=== PATIENT | female | born 1990 | race Caucasian/White ===

== ENCOUNTER 2018-12-21 09:20 | Emergency (ER) | payer OTHER ==
[~2018-12-21] VITALS: Ht 165.1 cm; Wt 98.9 kg
--- OUTSIDE RECORDS SUMMARY | ~2018-12-21 | XMS | Clinical Summary ---
Demographics + + + | Address | [address] | | | [place] [address] | + + + | Home Phone | | + + + | Preferred Language | Unknown | + + + | Marital Status | | + + + | Pentecostalism Affiliation | Unknown | + + + | Race | White | + + + | Ethnic Group | Not or | + + + Author + + + | Author | NON REVENUE LOCATIONS | + + + | Organization | NON REVENUE LOCATIONS | + + + | Address | Unknown | + + + | Phone | Unavailable | + + + Support + + +---------+ + | Name | Relationship | Address | Phone | + + +---------+ + | Arnoldo Mata | ECON | Unknown | | + + +---------+ + Care Team Providers + +------+ + | Care Rotor Winder Name | Role | Phone | + +------+ + | Robert Velazquez DO | PCP | Unavailable | + +------+ + Source Comments MAYRA is fully live on both [facility] and [facility] InPatient.[facility] Allergies + + + + + + | Active Allergy | Reactions | Severity | Noted | Comments | | | | | Date | | + + + + + + | Oxycodone | Pruritus | | 12/10/19 | | | | | | 15 | | + + + + + + Medications + + + +---------+------+------+-------+ | Medication | Sig | Dispensed | Refills | Star | End | Statu | | | | | | t | Date | s | | | | | | Date | | | + + + +---------+------+------+-------+ | | Take by mouth. | | 0 | | | Activ | | Vit27&Enlhpfh-Mjtl-S | | | | | | e | | A 60 mg iron-1 mg | | | | | | | | oral tablet | | | | | | | + + + +---------+------+------+-------+ | lidocaine 5 % | apply to vulva as | 35 g | 2 | 10/2 | | Activ | | topical ointment | needed for pain | | | 8/20 | | e | | | | | | 15 | | | + + + +---------+------+------+-------+ | tacrolimus 0.1 % | EVERY OTHER DAY | 30 g | 2 | 10/1 | | Activ | | topical ointment | application to vulva | | | 2/20 | | e | | | | | | 16 | | | + + + +---------+------+------+-------+ | NUVARING | | | 3 | 10/0 | | Activ | | 0.12-0.015 mg/24 hr | | | | 4/20 | | e | | vaginal ring | | | | 17 | | | + + + +---------+------+------+-------+ | doxycycline | Take 1 capsule by | 60 | 1 | 10/2 | | Activ | | monohydrate 100 mg | mouth every twelve | capsule | | 3/20 | | e | | oral capsule | hours. (Pharmacist | | | 17 | | | | | to substitute salt | | | | | | | | form as needed) | | | | | | + + + +---------+------+------+-------+ | silver | Apply twice to three | 400 g | 0 | 05/0 | | Activ | | sulfaDIAZINE 1 % | times per day over | | | 3/20 | | e | | topical cream | affected areas | | | 18 | | | + + + +---------+------+------+-------+ | fluconazole 200 mg | Take one pill po | 6 | 0 | 05/0 | | Activ | | oral tablet | daily for 3 days, | tablet | | 3/20 | | e | | | then once weekly for | | | 18 | | | | | another three week. 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 | + + + | Acantholytic vesicular dermatitis of the genitals | 01/13/2015 | + + + Family History + + +------+ + | Medical History | Relation | Name | Comments | + + +------+ + | Arthritis | Father | | | + + +------+ + | Depression | Mother | | | + + +------+ + | Thyroid | Mother | | | + + +------+ + | Asthma | | | sibling | + + +------+ + | Thyroid | | | sibling | + + +------+ + + +------+--------+ + | Relation | Name | Status | Comments | + +------+--------+ + | Father | | | | + +------+--------+ + | Mother | | | | + +------+--------+ + Social History + +-------+ +--------+------+ | [...] recent travel history available. | + + Last Filed Vital Signs + + + + + | Vital Sign | Reading | Time Taken | Comments | + + + + + | Blood Pressure | 138/85 | 01/21/2018 10:35 AM | | | | | PST | | + + + + + | Pulse | 89 | 01/21/2018 10:35 AM | | | | | PST | | + + + + + | Temperature | - | - | | + + + + + | Respiratory Rate | - | - | | + + + + + | Oxygen Saturation | - | - | | + + + + + | Inhaled Oxygen | - | - | | | Concentration | | | | + + + + + | Weight | 96.6 kg (213 lb) | 12/29/2015 9:44 AM | | | | | PDT | | + + + + + | Height | 162.6 cm (5' 4") | 12/24/2014 8:27 AM | | | | | PDT | | + + + + + | Body Mass Index | 36.56 | 12/24/2014 8:27 AM | | | | | PDT | | + + + + + Plan of Treatment +--------+---------+ + + + | Date | Type | Specialty | Care Team | Description | +--------+---------+ + + + | 01/27/ | Office | Dermatology | Keara Kraus, | | | 2018 | Visit | | [address] | | | | | | [place], [place] | | | | | | [address] | | | | | | [phone] | | | | | | | | +--------+---------+ + + + + + + + + | Health Maintenance | Due Date | Last Done | Comments | + + + + + | Influenza (Flu) | | 01/17/2016, 02/18/2013 | | | vaccination (#1) | 9 | | | + + + + + | Pneumococcal | Aged Out | | No longer eligible | | vaccination | | | based on patient's | | | | | age to complete this | | | | | topic | + + + + + Results Not on filefrom Last 3 Months Insurance +-------+--------+ +--------+ + +------+ | Payer | Benefi | Subscriber | Effect | Phone | Address | Type | | | t Plan | ID | gaurang | | | | | | / | | Dates | | | | | | Group | | | | | | +-------+--------+ +--------+ + +------+ | MODA | MODA | [phone] | | [phone] | [address] | HMO | | | [place] | | [phone] | | | | [address] | | esent | | [place], | | | | | | | | [place] [address] | | +-------+--------+ +--------+ + +------+ + +--------+ +--------+ + + | Guarantor Name | Accoun | Relation to | Date | Phone | Billing Address | | | t Type | Patient | of | | | | | | | | | | + +--------+ +--------+ + + | Dorothy Mata | Person | Self | [birth year] | [address] | | | al/Geovany | | 1990 | [phone] | [place] [address] | | | veto | | | 4 (Home) | | + +--------+ +--------+ + +
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
--- OUTSIDE RECORDS SUMMARY | ~2018-12-21 | XMS | Encounter Summary ---
Demographics + + + | Address | [address] | | | [place] [address] | + + + | Home Phone | | + + + | Preferred Language | Unknown | + + + | Marital Status | | + + + | Mu-Ism Affiliation | Unknown | + + + | Race | White | + + + | Ethnic Group | Not or | + + + Author + + + | Author | [facility] | + + + | Organization | [facility] | + + + | Address | Unknown | + + + | Phone | Unavailable | + + + Support + + +---------+ + | Name | Relationship | Address | Phone | + + +---------+ + | Arnoldo Mata | ECON | Unknown | | + + +---------+ + Care Team Providers + +------+ + | Care House Builder Name | Role | Phone | + +------+ + | Robert Velazquez DO | PCP | Unavailable | + +------+ + Encounter Details +--------+ + + + + | Date | Type | Department | Care Team | Description | +--------+ + + + + | 01/08/ | MyChart | Dermatology | Keara Kraus, | RE: Condition in | | 2018 | Encounter | Medical at [facility] | MD [address] | Remission | | | | Floor [address] | [place], [place] | | | | | Ave Mailcode: [id number] | [address] | | | | | [facility] | [phone] | | | | | and Healing, | | | | | | | | | | | | Floor [place], [place] | | | | | | [address] | | | | | | [phone] | | | +--------+ + + + [...] [address] | | | | | | [place], [place] | | | | | | [address] | | | | | | [phone] | | | | | | | | +--------+---------+ + + + documented as of this encounter Visit Diagnoses Not on filedocumented in this encounter"
--- OUTSIDE RECORDS SUMMARY | ~2018-12-21 | XMS | Encounter Summary ---
Demographics + + + | Address | [address] | | | [place] [address] | + + + | Home Phone | | + + + | Preferred Language | Unknown | + + + | Marital Status | | + + + | Church Affiliation | Unknown | + + + | Race | White | + + + | Ethnic Group | Not or | + + + Author + + + | Author | [facility] | + + + | Organization | [facility] | + + + | Address | Unknown | + + + | Phone | Unavailable | + + + Support + + +---------+ + | Name | Relationship | Address | Phone | + + +---------+ + | Arnoldo Mata | ECON | Unknown | | + + +---------+ + Care Team Providers + +------+ + | Care Produce Assistant Name | Role | Phone | + +------+ + | Robert Velazquez DO | PCP | Unavailable | + +------+ + Reason for Visit + + + | Reason | Comments | + + + | Lab findings, | | | teaching, guidance, | | | and counseling | | + + + Encounter Details +--------+ + + + + | Date | Type | Department | Care Team | Description | +--------+ + + + + | 01/01/ | Telephone [facility] | [place], | Lab findings, | | 2014 | | [facility] | [address] | teaching, guidance, | | | | [address] | and counseling | | | | [address] | Rd [place], [place] | | | | | [facility] | [address] | | | | | [place], [place] | [phone] | | | | | [address] | | | | | | [phone] | | | +--------+ + + + [...] [address] | | | | | | [place], [place] | | | | | | [address] | | | | | | [phone] | | | | | | | | +--------+---------+ + + + documented as of this encounter Visit Diagnoses Not on filedocumented in this encounter"
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
--- OUTSIDE RECORDS SUMMARY | ~2018-12-21 | XMS | Encounter Summary ---
Demographics + + + | Address | [address] | | | [place] [address] | + + + | Home Phone | | + + + | Preferred Language | Unknown | + + + | Marital Status | | + + + | Mosque Affiliation | Unknown | + + + | Race | White | + + + | Ethnic Group | Not or | + + + Author + + + | Author | [facility] | + + + | Organization | [facility] | + + + | Address | Unknown | + + + | Phone | Unavailable | + + + Support + + +---------+ + | Name | Relationship | Address | Phone | + + +---------+ + | Arnoldo Mata | ECON | Unknown | | + + +---------+ + Care Team Providers + +------+ + | Care Environmental Control Administrator Name | Role | Phone | + +------+ + | Robert Velazquez DO | PCP | Unavailable | + +------+ + Reason for Visit + + + | Reason | Comments | + + + | Discussion | | + + + Encounter Details +--------+ + + + + | Date | Type | Department | Care Team | Description | +--------+ + + + + | 01/03/ | Telephone | Dermatology | Keara Kraus, | Discussion | | 2016 | | Medical at [facility] [address] | [address] | | | | | Floor [address] [place], [place] | | | | | [address] Mailcode: [address] | [id number] | | | | | [facility] | [phone] | | | | | and Healing, | | | | | | [facility] | | | | | | Floor [place], [place] | | | | | | [address] | | | | | | [phone] | | | +--------+ + + + [...] | | 2019 | Visit | | [address] | | | | | | [place], [place] | | | | | | [address] | | | | | | [phone] | | | | | | | | +--------+---------+ + + + documented as of this encounter Visit Diagnoses Not on filedocumented in this encounter"
--- OUTSIDE RECORDS SUMMARY | ~2018-12-21 | XMS | Encounter Summary ---
Demographics + + + | Address | [address] | | | [place] [address] | + + + | Home Phone | | + + + | Preferred Language | Unknown | + + + | Marital Status | | + + + | Protestant Affiliation | Unknown | + + + | Race | White | + + + | Ethnic Group | Not or | + + + Author + + + | Author | [facility] | + + + | Organization | [facility] | + + + | Address | Unknown | + + + | Phone | Unavailable | + + + Support + + +---------+ + | Name | Relationship | Address | Phone | + + +---------+ + | Arnoldo Mata | ECON | Unknown | | + + +---------+ + Care Team Providers + +------+ + | Care Bonsai Culturist Name | Role | Phone | + [...] | | 2016 | | Medical at [facility] [address] | [address] | | | | | Floor [address] | [place], [place] | | | | | [address] Mail[address]: [address] | [id number] | | | | | [facility] | [phone] | | | | | and Healing, | | | | | | [facility] | | | | | | Floor [place], [place] | | | | | | [address] | | | | | | [phone] | | | +--------+ + + + [...] [address] | | | | | | [place], [place] | | | | | | [address] | | | | | | [phone] | | | | | | | | +--------+---------+ + + + documented as of this encounter Visit Diagnoses Not on filedocumented in this encounter"
--- OUTSIDE RECORDS SUMMARY | ~2018-12-21 | XMS | Encounter Summary ---
Demographics + + + | Address | [address] | | | [place] [address] | + + + | Home Phone | | + + + | Preferred Language | Unknown | + + + | Marital Status | | + + + | Gnosticism Affiliation | Unknown | + + + | Race | White | + + + | Ethnic Group | Not or | + + + Author + + + | Author | [facility] | + + + | Organization | [facility] | + + + | Address | Unknown | + + + | Phone | Unavailable | + + + Support + + +---------+ + | Name | Relationship | Address | Phone | + + +---------+ + | Arnoldo Mata | ECON | Unknown | | + + +---------+ + Care Team Providers + +------+ + | Care Dentistry Teacher Name | Role | Phone | + +------+ + | Robert Velazquez DO | PCP | Unavailable | + +------+ + Reason for Visit + + + | Reason | Comments | + + + | Follow-up visit | | + + + Encounter Details +--------+---------+ + + + | Date | Type | Department | Care Team | Description | +--------+---------+ + + + | 01/21/ | Office | Dermatology | Keara Kraus, | Neoplasm of skin | | 2017 | Visit | Medical at [facility] [address] | [address] | (Primary Dx); | | | | Floor [address] | [place], [place] | Priyanka | | | | [place] Mail[address]: [address] | [id number] | disease | | | | [facility] | [phone] | | | | | and [place], | | | | | | [facility] | | | | | | [place], [place] | | | | | | [address] | | | | | | [phone] | | | +--------+---------+ + + + [...] +---------+ + + | Blood Pressure | 138/85 | 01/21/2018 10:35 AM | | | | | PST | | + +---------+ + + | Pulse | 89 | [...] +---------+ + + documented in this encounter Patient Instructions Patient Instructions Miya Riley MD - 01/21/2018 10:40 AM [facility] [employer] [facility] DEPARTMENT OF DERMATOLOGY [address] [place] [address], BIOPSY WOUND CARE INSTRUCTIONS General Care Wound healing is most rapid if the area is kept moist with ointment and covered so that a s cab is not allowed to form. To help this occur: Please remove the bandage on the day following your procedure. Wash gently with a mild soap and water (in the shower is fine). If you have any crusts or pus, you may gently remove with a Q-tip or gauze. Spread a thin layer of Vaseline ointment on the wound and then cover with a fresh bandag e. Continue this routine until the area heals. You will know the area is healed when it is no longer moist or makes a scab. It will still be pink. If you have stitches, they should be removed in 5 to 14 days. If you are uncertain of w hen to return for suture removal, please contact the clinic. Pain is rare, but if present, try an aanz-ams-ztvqlpl pain medication such as Tylenol ev amanda four hours (if you are able to take this medication). If you are having a great deal of pain, please contact the clinic. Complications If bleeding occurs, apply firm pressure directly over the wound for 15 minutes (no dylon zendejas). Time yourself with a clock as this can feel like a long time. If it is still bleeding , please contact the clinic. Expect the area to become more red and tender during the first two days after the proced ure. This will gradually improve and is part of the normal wound healing process. Infectio n is a rare complication. If it occurs, it begins several days after the procedure. The ar ea will become increasingly red, swollen and tender instead of slowly improving. Please con tact the clinic if you think you may have an infection. Biopsy results It usually takes one to two weeks to be notified of biopsy results. If you have not hea rd about your results within two weeks, please contact the clinic and we will assist you. IF YOU HAVE ANY QUESTIONS, PLEASE CONTACT THE CLINIC AT [phone] After hours, please call the hospital proofing machine operator and ask for the on-call cook chill technician at [phone]. Please note: In addition to your office visit charges, you or your insurance company may be billed: For any additional physician fees, such as the biopsy procedure. documented in this encounter Progress Notes Keara Kraus MD - 01/21/2018 10:40 AM PSTI personally interviewed and examined the jennifer ent and discussed the plan with the resident and patient. I have reviewed and edited the re sident note as appropriate to reflect my findings and assessment and agree with the document ation. I was present for the biopsy procedure as described in the note for this encounter. Keara Kraus M.D. [employer] Professor of Dermatology. Miya Mcadams MD - 1 03/23/2017 10:40 AM PSTPlease let patient know benign biopsy results; c/w congenital nevus.El ectronically signed by Miya Riley MD at 01/24/2018 2:12 PM Miya Mcadams MD - 2017 10:40 AM PSTDERMATOLOGY FOLLOW-UP VISIT Last Appointment in [facility] was on 01/29/17 at 3:42 pm with Keara Kraus MD. 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 She is off of all of the oral medications(doxycycline and naltrexo ne) and is only managing her disease with topical silvadene. Notes that she has greatly garcia ged her diet and is only eating nutratarian(no meat and no dairy). She notes that she became over the summer and so she went off of the oral medications. Is very pleased that she is doing so much better. Also notes that when she went off the nuvaring she started doin g much better to. Notes a tag that part of got partly ripped off when putting on her shirt a nd would like this removed if possible. Does not itch or bleed but is tender. Denies other c utaneous concerns. ROS: Other than those stated above, the patient denies any fevers, chills, night sweats, w eight loss, loss of appetite or other skin complaints. OBJECTIVE: BP 138/85 | Pulse 89 WDWN, NAD; awake, alert and oriented; pleasant with appropriate mood and affect A examination was performed of the face, eyelids, ears, lips, neck, arms, lower abdomen, le gs and external genitalia. Findings were within normal limits except for the following: -on the left zoroastrian is a brown pedunculated papule(photo and biopsy today) Scattered, amezquita slightly keratotic thin plaques, no superficial erosions, located on the in ner aspect of the labia majora(L>R) of the vulva extending posteriorly and involving the per ineal and perianal skin. ASSESSMENT/PLAN: Dorothy Mata is a 27 y.o. female who comes in today for follow up of papular acantholytic dyskeratosis of the vulva (Grace Edwards) accompanied by pruritus. -- continue Silver sulfadiazine cream BID-TID to the lesions --In future, if flaring , could consider resuming doxycycline and naltrexone. Other treatme nts could include acitretin (if she no longer desires children) and or MTX, topical retinoid s 2. 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 All equipment required was ready and available. The patient was positioned appropriately. After PARQ addressed and scar factors discussed, the area was prepped with an isopropyl alcohol pad. Anesthesia was obtained by harley bcutaneous infusion of buffered 1% lidocaine with 1:100,000 epinephrine. A shave biopsy was performed and hemostasis obtained with 25% aluminum chloride and pressure. Blood loss was minimal. The site was dressed with white petrolatum jelly and a bandage. Verbal and written wound care instructions were given to the patient. Patient reports no pain after the proce dure. RTC: annually for follow up on Grace Edwards Miya Riley MD MPH Dermatology Resident, PGY3 [facility] documented in this en counter Plan of Treatment +--------+---------+ + + + | Date | Type | Specialty | Care Team | Description | +--------+---------+ + + + | 01/27/ | Office | Dermatology | Keara Kraus, | | | 2019 | Visit | | [address] | | | | | | [place], [place] | | | | | | [address] | | | | | | [phone] | | | | | | | | +--------+---------+ + + + documented as of this encounter Procedures + +--------+ + + + | Procedure Name | Priori | Date/Time | Associated Diagnosis | Comments | | | ty | | | | + +--------+ + + + | [facility] BIOPSY OF SKIN | Routin | 01/31/2018 | Neoplasm of skin | | | LESION | e | 6:26 PM | | | | | | PST | | | + +--------+ + + + | DERM PATHOLOGY | Routin | 01/21/2018 | Neoplasm of skin | Results for this | | | e | 11:27 AM | | procedure are in the | | | | PST | | results section. | + +--------+ + + + documented in this encounter Results DERM PATHOLOGY (01/21/2018 11:27 AM PST) + + + + + + | Component | Value | Ref Range | Performed | Pathologist | | | | | At | Signature | + + + + + + | Clinical | Brown pedunculated | | [facility] | | | History | papule (nevus vs SK vs | | DERMATOPATH | | | | tag). | | OLOGY | | + + + + + + | Final | MELANOCYTIC NEVUS, | | [facility] | Electronically | | Pathologic | COMPOUND TYPE, | | DERMATOPATH | signed by | | Diagnosis | CONGENITAL PATTERN. | | OLOGY | Jennifer Cadena | | | (LEFT CONGREGATIONAL)NOTE: There | | | Judith Adams, | | | are features consistent | | | MD on 01/22/2018 | | | with prior trauma. The | | | at 5:19 PM | | | lesion is present at the | | | | | | peripheral and deep | | | | | | biopsy margins. | | | | + + + + + + | Gross | Received in formalin is | | [facility] | | | Description | a specimen labeled with | | DERMATOPATH | | | | the patient's name:A: | | OLOGY | | | | Specimen is labeled | | | | | | "Left zoroastrian" and | | | | | | consists of two | | | | | | irregular shaves of | | | | | | papular [id number] | | | | | | skin, 3 x 2 x 1 mm | | | | | | (inked blue), and 4 x 3 | | | | | | x 1 mm (inked blue, | | | | | | bisected). Both are | | | | | | entirely submitted in | | | | | | cassette A1. | | | | + + + + + + | Microscopic | There are nests and | | [facility] | | | | single melanocytes along | | DERMATOPATH | | | Description | the dermal epidermal | | OLOGY | | | | junction and nests, | | | | | | cords, and strands of | | | | | | melanocytes filling the | | | | | | papillary and extending | | | | | | into the reticular | | | | | | dermis, adjacent to | | | | | | adnexae and vessels. | | | | | | Most of the melanocytic | | | | | | nuclei are round to | | | | | | oval, and most of the | | | | | | cells contain | | | | | | amphophilic cytoplasm, | | | | | | some with melanin. 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
--- OUTSIDE RECORDS SUMMARY | ~2018-12-21 | XMS | Encounter Summary ---
Demographics + + + | Address | [address] | | | [place] [address] | + + + | Home Phone | | + + + | Preferred Language | Unknown | + + + | Marital Status | | + + + | Taoist Affiliation | Unknown | + + + | Race | White | + + + | Ethnic Group | Not or | + + + Author + + + | Author | [facility] | + + + | Organization | [facility] | + + + | Address | Unknown | + + + | Phone | Unavailable | + + + Support + + +---------+ + | Name | Relationship | Address | Phone | + + +---------+ + | Arnoldo Mata | ECON | Unknown | | + + +---------+ + Care Team Providers + +------+ + | Care Production Operations Inspector Name | Role | Phone | + +------+ + | Robert Velazquez DO | PCP | Unavailable | + +------+ + Encounter Details +--------+------+ + + + | Date | Type | Department | Care Team | Description | +--------+------+ + + + | 01/29/ | Lab | Laboratory at [facility] | | Acantholytic | | 2017 | | [address] | | vesicular dermatitis | | | | [place], [place] | | of the genitals | | | | [address] | | | | | | [phone] | | | +--------+------+ + + + Social History + +-------+ [...] + + documented as of this encounter Progress Notes Emily Gutiérrez MD - 01/29/2017 11:20 AM PSTLab results WNL, ok to start treatment with naltrexone. documented in this encounter Plan of Treatment +--------+---------+ + + + | Date | Type | Specialty | Care Team | Description | +--------+---------+ + + + | 01/27/ | Office | Dermatology | Keara Kraus, | | | 2019 | Visit | | [address] | | | | | | [place], [place] | | | | | | [address] | | | | | | [phone] | | | | | | | | +--------+---------+ + + + documented as of this encounter Procedures + +--------+ + + + | Procedure Name | Priori | Date/Time | Associated Diagnosis | Comments | | | ty | | | | + +--------+ + + + | COMPLETE METABOLIC | Routin | 01/29/2017 | Acantholytic | Results for this | | SET | e | 11:13 AM | vesicular dermatitis | procedure are in the | | (NA,K,CL,CO2,BUN,CRE | | PST | of the genitals | results section. | | AT,GLUC,CA,AST,ALT,B | | | | | | GINNY TOTAL,ALK | | | | | | PHOS,ALB,PROT TOTAL) | | | | | + +--------+ + + + documented in this encounter Results COMPLETE METABOLIC SET (NA,K,CL,CO2,BUN,CREAT,GLUC,CA,AST,ALT,BILI [...] | | | LABORATORY | | | [facility] | | | SERVICES, | | | [...] | Specimen | + + | Blood | + + + + + | Narrative | Performed At | + + + | Adult glucose reference range change effective 7-12-17. GFR is | [facility] | | estimated using the MDRD equation recommended by the National Kidney | LABORATORY | | Disease Education Program. Estimated GFR Interpretive Information: | SERVICES, CORE | | <60 mL/min/1.73 sq m Chronic Kidney | | | Disease <15 mL/min/1.73 sq m Kidney | | | Failure Estimated GFR greater that 60 mL/min/1.73 sq m is of limited | | | clinical value. The MDRD equation is not valid in the following | | | situations: - Patients under 18 years of age - Severe malnutrition | | | or obesity - Vegetarian diet - Rapidly changing kidney function | | + + + + + + + + | Performing | Address | City/State/Zipcode | Phone Number | | Organization | | | | + + + + + | [facility] | [address] | [place] [address] | | | SERVICES, CORE | [address] | | | + + + + + documented in this encounter Visit Diagnoses + + | Diagnosis | + + | Acantholytic vesicular dermatitis of the genitals Contact dermatitis and other | | eczema, due to unspecified cause | + + documented in this encounter"
--- OUTSIDE RECORDS SUMMARY | ~2018-12-21 | XMS | Encounter Summary ---
Demographics + + + | Address | [address] | | | [place] [address] | + + + | Home Phone | | + + + | Preferred Language | Unknown | + + + | Marital Status | | + + + | Pentecostalism Affiliation | Unknown | + + + | Race | White | + + + | Ethnic Group | Not or | + + + Author + + + | Author | [facility] | + + + | Organization | [facility] | + + + | Address | Unknown | + + + | Phone | Unavailable | + + + Support + + +---------+ + | Name | Relationship | Address | Phone | + + +---------+ + | Arnoldo Mata | ECON | Unknown | | + + +---------+ + Care Team Providers + +------+ + | Care Aerobics Teacher Name | Role | Phone | [...] Obstetrics & | Diagnoses | Raphael, | [facility] | | | | Gynecology | Vulvar | Romario Fulton MD | Generalists | | | | | itching | [place] | [address] | | | | | Lichen | Womens | [address] | | | | | sclerosus et | [facility] [place] | [address] | | | | | atrophicus | [address] | [address] | | | | | | [address] | Pavilion | | | | | | [address] | [place], [place] | | | | | | [place], [place] | [address] | | | | | | [address] | Phone: | | | | | | Phone: | [phone] | | | | | | [phone] | Fax: | | | | | | Fax: | [phone] | | | | | | [phone] | | +--------+--------+ + + + + Encounter Details +--------+---------+ + + + | Date | Type | Department | Care Team | Description | +--------+---------+ + + + | 12/09/ | Office | [facility] | Lichen sclerosus | | 2015 | Visit | [facility] | MD Emerald 1951 | (Primary Dx); | | | | Pav[address] | Hypopigmentation; | | | | [address] | Rd [place], [place] | Vulvar dystrophy | | | | [place] | [address] | | | | | [place], [place] | [phone] | | | | | [address] | | | | | | [phone] | | | +--------+---------+ + + + [...] This may be up to a w chicken ranch. If you are experiencing pain or irritation, [...] daughter named Keiry; Delivered last child in [place]. 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 Does VOICE GOAL: Sex less painful; sx control for the itch. Romario Lim MD [facility] [address] [place], [place] [address] Past Medical History Diagnosis Date Lichen sclerosus Fibromyalgia Psoriasis Past Surgical History Procedure Laterality Date section 01/10/13 Tonsillectomy 09/2010 Family History Problem Relation Thyroid Mother Depression Mother Arthritis Father Asthma sibling Thyroid sibling No LMP recorded. 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 Sexual Activity: Patient is sexually active with a male partner. Contraception: nothing. Sexually Transmitted Infections: No history. Obstetric History: deliveries: 1. Current Outpatient Prescriptions Medication Sig DESONIDE TOP Apply to affected area. Vit27&Tcqlwxh-Xuxa-AJ 60 mg iron-1 mg oral tablet Take [...] in [facility] documented in this encounter Plan of Treatment +--------+---------+ + + + | Date | Type | Specialty | Care Team | Description | +--------+---------+ + + + | 01/27/ | Office | Dermatology | Keara Kraus, | | | 2019 | Visit | | [address] | | | | | | [place], [place] | | | | | | [address] | | | | | | [phone] | | | | | | | [...] | + +--------+ + + + | DC BIOPSY | Routin | 12/09/2014 | Hypopigmentation [...] | + + + + + | [employer] [facility] - | [address] | [place] [address] | | | [place] | | | | + + + [...] | | | | | | WITH | | | | | | ACANTHOLYSIS. | | | | | | NOTE: Despite the | | | | | | clinical history, the | | | | | | presence of an | | | | | | intraepidermalvesicle | | | | | | and | | | | | | acantholysis througho | | | | | | ut much of the spinous | | | | | | layer issuggestive of | | | | | [...] | | | | sclerosus et | | | | | | atrophicus. | | | | | | KPW:mm12/10/14 My | | | | | | [...] | | | | | | Rendering | | | | | | Diagnostician: Jose A | | | | | | Paula | | | | | | Mahin.SuzannePathologistCynthiai | | | | | | cony [...] [facility] | Mailcode [address], [address] | [place] [address] | | | DERMATOPATHOLOGY | [address] [...]
--- OUTSIDE RECORDS SUMMARY | ~2018-12-21 | XMS | Clinical Summary ---
Demographics + + + | Address | [address] | | | [place] [address] | + + + | Home Phone | | + + + | Preferred Language | Unknown | + + + | Marital Status | | + + + | Shinto Affiliation | Unknown | + + + [...] Team Providers + +------+ + | Care Small Engine Trainer Name | Role | Phone | + +------+ + | Robert Velazquez DO | PCP | Unavailable | + +------+ + Source Comments MAYRA is fully live on both [facility] and [facility] InPatient.[facility] Allergies + + + + [...] 0 | | | Activ | | Vit27&Ngigvhl-Wudo-G | | | | | | e [...] | | 2018 | Visit | | [address] | | | | | | [place], [place] | | | | | | [address] | | | | | | [phone] | | | | | | | [...] MODA | MODA | [phone] | | [phone] | [address] | [address] | | | [address] | | [phone] | [phone] | | | | Y | | esent | | [place], | | | | | | | | [place] [address] | | +-------+--------+ +--------+ + +------+ + [...] | | al/Geovany | | 1990 | [phone] | [place] [address] | | | veto | | | 4 (Home) | | + +--------+ +--------+ + +
--- OUTSIDE RECORDS SUMMARY | ~2018-12-21 | XMS | Encounter Summary ---
Demographics + + + | Address | [address] | | | [place] [address] | + + + | Home Phone | | + + + | Preferred Language | Unknown | + + + | Marital Status | | + + + | Religion Affiliation | Unknown | + + + | Race | White | + + + | Ethnic Group | Not or | + + + Author + + + | Author | [facility] | + + + | Organization | [facility] | + + + | Address | Unknown | + + + | Phone | Unavailable | + + + Support + + +---------+ + | Name | Relationship | Address | Phone | + + +---------+ + | Arnoldo Mata | ECON | Unknown | | + + +---------+ + Care Team Providers + +------+ + | Care Crab Fisherman Name | Role | Phone | + [...] | | | | | itching | [place] | [address] | | | | | Lichen | Womens | [address] | | | | | sclerosus et | [facility] | [address] | | | | | atrophicus | [address] | [address] | | | | | | [address] | Pavilion | | | | | | [address] | [place], [place] | | | | | | [place], [place] | [address] | | | | | | [address] | Phone: | | | | | | Phone: | [phone] | | | | | | [phone] | Fax: | | | | | | Fax: | [phone] | | | | | | [phone] | | +--------+--------+ + + + + Encounter Details +--------+---------+ + + + | Date | Type | Department | Care Team | Description | +--------+---------+ + + + | 12/24/ | Office | [facility] | [place], | 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 If you are experiencing pain or irritation, [...] 8:25 AM PDT VULVAR INTERVAL EXAM Dorothy "Marcela Mata is a 24 y.o. female T1 [...] daughter named Keiry; Delivered last child in [place]. 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 Does VOICE GOAL: Sex less painful; sx control for the itch. Romario Lim MD [facility] [employer] [address] [place] [address] Past Medical History Diagnosis Date Lichen sclerosus Fibromyalgia Psoriasis Past Surgical History Procedure Laterality Date section 01/10/13 Tonsillectomy 09/2010 Family History Problem Relation Thyroid Mother Depression Mother Arthritis Father Asthma sibling Thyroid sibling No LMP recorded. 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 Sexual Activity: Patient is sexually active with a male partner. Contraception: nothing. Sexually Transmitted Infections: No history. Obstetric History: deliveries: 1. Current Outpatient Prescriptions Medication Sig DESONIDE TOP Apply to affected area. Vit27&Fcplgeh-Tuwg-LA 60 mg iron-1 mg oral tablet Take [...] in [facility] documented in this encounter Plan of Treatment +--------+---------+ + + + | Date | Type | Specialty | Care Team | Description | +--------+---------+ + + + | 01/27/ | Office | Dermatology | Keara Kraus, | | | 2019 | Visit | | [address] | | | | | | [place], [place] | | | | | | [address] | | | | | | [phone] | | | | | | | | +--------+---------+ + + + + +------+--------+ + + | Name | Type | Priori | Associated Diagnoses | Order Schedule | | | | ty | | | + +------+--------+ + + | IMMUNOFLUORESCENCE | Lab | Routin | Vulvar dystrophy | Ordered: 12/24/2014 | | STUDY | | royal Mathew | | | | | | disease [...] | + +--------+ + + + | [place] BIOPSY | Routin | 12/23/2014 | Vulvar [...] | | ESCENCE | labia, punch biopsy | | DERMATOPATH | | | STUDY | DIF CLINICAL | | OLOGY | | | [...] | | | | | | holding | | | | | | solution. After | | | | | | washing, the tissue was | | | | | | frozenin OCT, and | | | | | | cryosectioned onto five | | | | | | separate slides. The | | | | | | sections werethen | | | | | [...] | | | | | | thesesections. Partic | | | | | | ularly, there is no | | | | | | support for an | | | | | | immunologicallymediated | | | | | | form of pemphigus such | | | | | | as pemphigus vulgaris or | | | | | | | | | | | | pemphigusfoliaceus. P | | | | | | atient's with | | | | | | Grace-Grace disease | | | | | | typically have a | | | | | | negativedirect | | | | | | immunofluorescent | | | | | | test. Correlation | | | | | | with routine histology | | | | | | would beof value in | | | | | | arriving at a final | | | | | | diagnosis. 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
--- OUTSIDE RECORDS SUMMARY | ~2018-12-21 | XMS | Encounter Summary ---
Demographics + + + | Address | [address] | | | [place] [address] | + + + | Home Phone | | + + + | Preferred Language | Unknown | + + + | Marital Status | | + + + | Worship Affiliation | Unknown | + + + | Race | White | + + + | Ethnic Group | Not or | + + + Author + + + | Author | [facility] | + + + | Organization | [facility] | + + + | Address | Unknown | + + + | Phone | Unavailable | + + + Support + + +---------+ + | Name | Relationship | Address | Phone | + + +---------+ + | Arnoldo Mata | ECON | Unknown | | + + +---------+ + Care Team Providers + +------+ + | Care Freight Engineer Name | Role | Phone | + +------+ + | Robert Velazquez DO | PCP | Unavailable | + +------+ + Reason for Visit + + + | Reason | Comments | + + + | New Patient Visit | | + + + | Examination Of Skin | | + + + Consultation (Routine) +--------+ + + + + + | Status | Reason | Specialty | Diagnoses / | Referred By | Referred To | | | | | Procedures | Contact | Contact | +--------+ + + + + + | Closed | Specialty | Dermatology | Diagnoses | Aleksander, | D[facility] Med | | | Services | | | [place], | [address] | | | Required | | Acantholytic | [address] | [address] | | | | | vesicular | [address] | Mailcode: | | | | | dermatitis | [address] | [facility] | | | | | [facility] | [place], [place] | for Health | | | | | y disease | [address] | and Healing, | | | | | Procedures | Phone: | Building [address], | | | | | CONSULT TO | [phone] | 16th Floor | | | | | DERM & DERM | Fax: | [place], [place] | | | | | SURGERY | [phone] | [address] | | | | | | | Phone: | | | | | | | [phone] | | | | | | | Fax: | | | | | | | [phone] | +--------+ + + + + + Encounter Details +--------+---------+ + + + | Date | Type | Department | Care Team | Description | +--------+---------+ + + + | 01/08/ | Office | Dermatology | Keara Kraus, | Acantholytic | | 2017 | Visit | [facility] at [facility] [address] | MD [address] | vesicular dermatitis | | | | Floor [address] | [place], [place] | of the genitals | | | | Ave Mailcode: [facility] | [address] | (Primary Dx) | | | | [facility] | [phone] | | | | | and Healing, | | | | | | Building | | | | | | Floor [place], [place] | | | | | | [address] | | | | | | [phone] | | | +--------+---------+ + + + [...] +---------+ + + | Blood Pressure | 126/80 | 01/08/2017 3:52 PM | | | | | PDT | | + +---------+ + + | Pulse | 88 | 01/08/2017 3:52 PM | | | | | PDT | | + +---------+ + + | [...] encounter Progress Notes Keara Kraus MD - 01/08/2017 3:40 PM PDTI personally interviewed and examined the jennifer ent and discussed the plan with the resident and patient. I have reviewed and edited the re sident note as appropriate to reflect my findings and assessment and agree with the document ation. Keara Kraus M.D. Insurance Law Specialist of Dermatology. Blaine Watson MD - 01/08/2017 3:40 PM PDT . DERMATOLOGY NEW PATIENT CONSULTATION Consulting physician: Emerald Armijo CHIEF COMPLAINT: Sujit-sujit disease HISTORY OF PRESENT ILLNESS: Dorothy Mata is a 26 y.o. female sent by Dr. 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 The patient describes that she has had th is condition for about 2 years. The condition is very itchy and painful (she describes a bur nneka sensation). She states that it slightly improved during but flared when she s topped . She has not identified specific triggers such as heat, increased moist , friction or sexual activity. She does state that sexual intercourse can be painful and unc omfortable for her. Has treated with topical steroids (mild, moderate and strong) that will partially help. She has recently also tried to treat with a home made formulation that inclu ded coconut oil, almond oil and bees wax that she thinks has been the most helpful but despi te this continues to flare. The patient's dermatology intake form was reviewed, signed, and dated. 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 Social History Main Topics Smoking status: Never Smoker Smokeless tobacco: Never Used Alcohol use No Drug use: No Sexual activity: Yes Partners: Male Other Topics Concern Not on file Social History Narrative MEDICATIONS: Current Outpatient Prescriptions: lidocaine 5 % topical ointment, apply to vulva as needed for pain, Disp: 35 g, Rfl: 2 NUVARING 0.12-0.015 mg/24 hr vaginal ring, , Disp: , Rfl: 3 Vit27&Uhiktno-Dnij-NQ 60 mg iron-1 mg oral tablet, Take by mouth., Disp: , Rfl: tacrolimus 0.1 % topical ointment, EVERY OTHER DAY application to vulva, Disp: 30 g, Rfl: 2 ALLERGIES: Allergies Allergen Reactions Oxycodone Pruritus REVIEW OF SYSTEMS: Please see HPI and PMH. In addition, she denies fever, chills, sweats, weight loss or loss of appetite, and has no further skin complaints. PHYSICAL EXAMINATION: BP 126/80 | Pulse 88 | ? No Well-developed, well-nourished female in no acute distress. Awake, alert and oriented. Pl easant and cooperative mood. A skin examination was performed including the face, eyelids, ears, lips, neck, arms, lowe r abdomen, legs and external genitalia. Findings were within normal limits except for the following: - Scattered, skin-colored, and whitish, slightly keratotic papules, and some superficial er osions located on the inner aspect of the labia majora of the vulva extending posteriorly an d involving the perineal and perianal skin. -thighs and inguinal creases clear PATHOLOGY: DIAGNOSIS: INTRAEPIDERMAL VESICULAR DERMATITIS WITH ACANTHOLYSIS AND [...] correlation with immunofluorescence studies is recommended. Materials Returned:[id number] x 5 slides My electronic signature indicates [...] positive and negative control for each immunoreactant. LHM:jyi 12/29/14 VULVAR BIOPSY November 2014 DIAGNOSIS: INTRAEPIDERMAL [...] diagnosis. Rendering Diagnostician: Jose A Lim MD [facility] [address] [address] ASSESSMENT AND PLAN: Dorothy Mata is a 26 y.o. female who comes in today for evaluation of papular acantho lytic dyskeratosis of the Vulva which usually asymptomatic but sometimes accompanied by pru ritus. Most of the reported cases were women and occurred on the vulva and in the perianal a alejandra, but there was a report of male patient with the lesion on his penis. Treatment of PAD i s yet to be discovered. Successful treatments with topical and systemic steroids have been r eported. Topical and oral retinoids also have been used with variable response. The most eff ective treatment appears to be local ablation of the lesion by cryotherapy, electrocautery o r excision. Will approach as treatment for Sujit Edwards -- Silver sulfadiazine cream BID-TID to the lesions -- Doxy 100mg BID -- Would consider adding low dose naltrexone (4.5mg daily) if she partially responds to dox y -- Other treatments could include acitretin (if she no longer desires children) and or MTX, topical retinoids RTC: 1 month or sooner NATANAEL Lo MD Resident, Department of Dermatology [facility] Pager [phone] documented in this en counter Plan of Treatment +--------+---------+ + + + | Date | Type | Specialty | Care Team | Description | +--------+---------+ + + + | 01/27/ | Office | Dermatology | Keara Kraus, | | | 2018 | Visit | | [address] | | | | | | [place], [place] | | | | | | [address] | | | | | | [phone] | | | | | | | | +--------+---------+ + + + documented as of this encounter Visit Diagnoses + + | Diagnosis | + + | 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
--- OUTSIDE RECORDS SUMMARY | ~2018-12-21 | XMS | Encounter Summary ---
Demographics + + + | Address | [address] | | | [place] [address] | + + + | Home Phone | | + + + | Preferred Language | Unknown | + + + | Marital Status | | + + + | Rastafarian Affiliation | Unknown | + + + | Race | White | + + + | Ethnic Group | Not or | + + + Author + + + | Author | [facility] | + + + | Organization | [facility] | + + + | Address | Unknown | + + + | Phone | Unavailable | + + + Support + + +---------+ + | Name | Relationship | Address | Phone | + + +---------+ + | Arnoldo Mata | ECON | Unknown | | + + +---------+ + Care Team Providers + +------+ + | Care Principal Planner Name | Role | Phone | + +------+ + | Robert Velazquez DO | PCP | Unavailable | + +------+ + Reason for Referral Consultation (Routine) +--------+ + + + + [...] | | | | | dermatitis | Ariana Ann | [address] [place] | | | | | Monika | [facility] [place] | for Health | | | | | y disease | [address] | and Healing, | | | | | Procedures | Phone: | [facility] 1, | | | | | CONSULT TO | [phone] | 16th Floor | | | | | DERM & DERM | Fax: | [place], [place] | | | | | SURGERY | [phone] | [address] | | | | | | | Phone: | | | | | | | [phone] | | | | | | | Fax: | | | | | | | [phone] | +--------+ + + + + + Encounter Details +--------+ + + + + | Date | Type | Department | Care Team | Description | +--------+ + + + + | 12/28/ | Mark [facility] | Aleksander, | RE:skin disease | | 2017 | Encounter | [facility] [place] [facility] | MD [address] | | | | | [address] | | | | | [address] | [place], [place] | | | | | [address] | [address] | | | | | [place], [place] | [phone] | | | | | [address] | | | | | | [phone] | | | +--------+ + + + [...] [address] | | | | | | [place], [place] | | | | | | [address] | | | | | | [phone] | | | | | | | | +--------+---------+ + + + documented as of this encounter Visit Diagnoses + + | Diagnosis | + + | Acantholytic vesicular dermatitis of the genitals - Primary Contact dermatitis and | | other eczema, due to unspecified cause | + + | 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
--- OUTSIDE RECORDS SUMMARY | ~2018-12-21 | XMS | Encounter Summary ---
Demographics + + + | Address | [address] | | | [place] [address] | + + + | Home Phone | | + + + | Preferred Language | Unknown | + + + | Marital Status | | + + + | Adventism Affiliation | Unknown | + + + | Race | White | + + + | Ethnic Group | Not or | + + + Author + + + | Author | [facility] | + + + | Organization | [facility] | + + + | Address | Unknown | + + + | Phone | Unavailable | + + + Support + + +---------+ + | Name | Relationship | Address | Phone | + + +---------+ + | Arnoldo Mata | ECON | Unknown | | + + +---------+ + Care Team Providers + +------+ + | Care Motor Scooter Mechanic Name | Role | Phone | + +------+ + | Robert Velazquez DO | PCP | Unavailable | + +------+ + Reason for Visit + + + | Reason | Comments | + + + | Refill Request | | + + + Encounter Details +--------+--------+ + + + | Date | Type | Department | Care Team | Description | +--------+--------+ + + + | 07/18/ | Refill | Dermatology | Keara Kraus, | Refill Request | | 2017 | | Medical at [facility] | [address] | | | | | Floor [address] | [place], [place] | | | | | [place] Mailcode: CH16D | [address] | | | | | [facility] | [phone] | | | | | and Healing, | | | | | | [facility] | | | | | | [place], [place] | | | | | | [address] | | | | | | [phone] | | | +--------+--------+ + + + Social History + +-------+ [...] [address] | | | | | | [place], [place] | | | | | | [address] | | | | | | [phone] | | | | | | | | +--------+---------+ + + + documented as of this encounter Visit Diagnoses Not on filedocumented in this encounter"
--- OUTSIDE RECORDS SUMMARY | ~2018-12-21 | XMS | Encounter Summary ---
Demographics + + + | Address | [address] | | | [place] [address] | + + + | Home Phone | | + + + | Preferred Language | Unknown | + + + | Marital Status | | + + + | Mandaeism Affiliation | Unknown | + + + | Race | White | + + + | Ethnic Group | Not or | + + + Author + + + | Author | [facility] | + + + | Organization | [facility] | + + + | Address | Unknown | + + + | Phone | Unavailable | + + + Support + + +---------+ + | Name | Relationship | Address | Phone | + + +---------+ + | Arnoldo Mata | ECON | Unknown | | + + +---------+ + Care Team Providers + +------+ + | Care Display Carver Name | Role | Phone | + [...] Services | | | [address], | [address] | | | Required | | Acantholytic | MD [address] | | | | | vesicular | Blanca Marie | Mailcode: | | | | | dermatitis | Gregory Ann | [facility] | | | | | Monika | [place], [place] | for Health | | | | | y disease | [address] | and Healing, | | | | | Procedures | Phone: | Building 1, | | | | | CONSULT TO | [phone] | 16th Floor | | | | | DERM & DERM | Fax: | [place], [place] | | | | | SURGERY | [phone] | [address] | | | | | | | Phone: | | | | | | | [phone] | | | | | | | Fax: | | | | | | | [phone] | +--------+ + + + + + Encounter Details +--------+---------+ + + + | Date | Type | Department | Care Team | Description | +--------+---------+ + + + | 01/29/ | Office | Dermatology | Keara Kraus, | Acantholytic | | 2017 | Visit | Medical at [facility] 16 | [address] | vesicular dermatitis | | | | Floor [address] | [place], [place] | of the genitals | | | | Ave Mailcode: CH16D | [address] | (Primary Dx) | | | | [facility] | [phone] | | | | | and Healing, | | | | | | Building | | | | | | Floor [place], [place] | | | | | | [address] | | | | | | [phone] | | | +--------+---------+ + + + [...] with the document ation. Keara Kraus M.D. Linen Controller of Dermatology. Blaine Block MD - 01/29/2017 10:00 AM PSTDERMATOLOGY FOLLOW-UP VISIT Last Appointment in [facility] was on 01/08/17 at 3:40 pm with [...] Lo MD Resident, Department of Dermatology [facility] Pager [phone] documented in this en counter Plan of Treatment +--------+---------+ + + + | Date | Type | Specialty | Care Team | Description | +--------+---------+ + + + | 01/27/ | Office | Dermatology | Keara Kraus, | | | 2019 | Visit | | [address] | | | | | | [place], [place] | | | | | | [address] | | | | | | [phone] | | | | | | | [...] | | | LABORATORY | | | NEPALESE | | | SERVICES, | | | [...] | Adult glucose reference range change effective 712-17. 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
--- OUTSIDE RECORDS SUMMARY | ~2018-12-21 | XMS | Encounter Summary ---
Demographics + + + | Address | [address] | | | [place] [address] | + + + | Home Phone | | + + + | Preferred Language | Unknown | + + + | Marital Status | | + + + | Judaism Affiliation | Unknown | + + + | Race | White | + + + | Ethnic Group | Not or | + + + Author + + + | Author | [facility] | + + + | Organization | [facility] | + + + | Address | Unknown | + + + | Phone | Unavailable | + + + Support + + +---------+ + | Name | Relationship | Address | Phone | + + +---------+ + | Arnoldo Mata | ECON | Unknown | | + + +---------+ + Care Team Providers + +------+ + | Care Curtain Hemmer Automatic Name | Role | Phone | + +------+ + | Robert Velazquez DO | PCP | Unavailable | + +------+ + Reason for Visit + + + | Reason | Comments | + + + | Appointment | | + + + | Other | | + + + Encounter Details +--------+ + + + + | Date | Type | Department | Care Team | Description | +--------+ + + + + | 12/21/ | Telephone | [facility] | Ale[place]ander, | Appointment; | | 2014 | | [facility] at [place] | [address] | | | | | [address] | | | | | [address] | [place], [place] | | | | | [address] | [address] | | | | | [place], [place] | [phone] | | | | | [address] | | | | | | [phone] | | | +--------+ + + + [...] [address] | | | | | | [place], [place] | | | | | | [address] | | | | | | [phone] | | | | | | | | +--------+---------+ + + + documented as of this encounter Visit Diagnoses Not on filedocumented in this encounter"
--- OUTSIDE RECORDS SUMMARY | ~2018-12-21 | XMS | Encounter Summary ---
Demographics + + + | Address | [address] | | | [place] [address] | + + + | Home Phone [...] + + + | Author | [facility] | + + + | Organization | [facility] | + + + | Address | Unknown | + + + | Phone | Unavailable | + + + Support + + +---------+ + | Name | Relationship | Address | Phone | + + +---------+ + | Arnoldo Mata | ECON | Unknown | | + + +---------+ + Care Team Providers + +------+ + | Care Plasterer Foreman Name | Role | Phone | + [...] | dermatitis | Ariana Ann | [address] [place] | | | | | Monika | [facility] [place] | for Health | | | | | y disease | [address] | and Healing, | | | | | Procedures | Phone: | [facility] 1, | | | | | CONSULT TO | [phone] | 16th Floor | | | | | DERM & DERM | Fax: | [place], [place] | | | | | SURGERY | [phone] | [address] | | | | | | | Phone: | | | | | | | [phone] | | | | | | | Fax: | | | | | | | [phone] | +--------+ + + + + + Encounter Details +--------+ + + + + | Date | Type | Department | Care Team | Description | +--------+ + + + + | 12/28/ | Mark | [facility] | Aleksander, | RE:skin disease | | 2017 | Encounter | [facility] at [place] | [address] | | | | | [address] | | | | | [address] | [place], [place] | | | | | [address] | [address] | | | | | [place], [place] | [phone] | | | | | [address] | | | | | | [phone] | | | +--------+ + + + [...] [address] | | | | | | [place], [place] | | | | | | [address] | | | | | | [phone] | | | | | | | | +--------+---------+ + + + documented as of this encounter Visit Diagnoses + + | Diagnosis | + + | 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
--- OUTSIDE RECORDS SUMMARY | ~2018-12-21 | XMS | Encounter Summary ---
Demographics + + + | Address | [address] | | | [place] [address] | + + + | Home Phone | | + + + | Preferred Language | Unknown | + + + | Marital Status | | + + + | Sabianist Affiliation | Unknown | + + + | Race | White | + + + | Ethnic Group | Not or | + + + Author + + + | Author | [facility] | + + + | Organization | [facility] | + + + | Address | Unknown | + + + | Phone | Unavailable | + + + Support + + +---------+ + | Name | Relationship | Address | Phone | + + +---------+ + | Arnoldo Mata | ECON | Unknown | | + + +---------+ + Care Team Providers + +------+ + | Care Cover Stripper Name | Role | Phone | + +------+ + | Robert Velazquez DO | PCP | Unavailable | + +------+ + Encounter Details +--------+------+ + + + | Date | Type | Department | Care Team | Description | +--------+------+ + + + | 01/29/ | Lab | Laboratory at [facility] | | Acantholytic | | 2017 | | [address] | | vesicular dermatitis | | | | [place], [place] | | of the genitals | | | | [address] | | | | | | [phone] | | | +--------+------+ + + + [...] [address] | | | | | | [place], [place] | | | | | | [address] | | | | | | [phone] | | | | | | | [...] | | | LABORATORY | | | [facility] | | | SERVICES, | | | [...] | + + + + + | [facility] | [address] | [place] [address] | | | SERVICES, CORE | [address] | | | + + + + + documented in this encounter Visit Diagnoses + + | Diagnosis | + + | Acantholytic vesicular dermatitis of the genitals Contact dermatitis and other | | eczema, due to unspecified cause | + + documented in this encounter"
--- OUTSIDE RECORDS SUMMARY | ~2018-12-21 | XMS | Encounter Summary ---
Demographics + + + | Address | [address] | | | [place] [address] | + + + | Home Phone [...] Team Providers + +------+ + | Care Cottage Parent Name | Role | Phone | + [...] | | 2014 | | [facility] at [place] | [address] | | | | | [address] | | | | | [address] | [place], [place] | | | | | [address] | [address] | | | | | [place], [place] | [phone] | | | | | [address] | | | | | | [phone] | | | +--------+ + + + [...] [address] | | | | | | [place], [place] | | | | | | [address] | | | | | | [phone] | | | | | | | | +--------+---------+ + + + documented as of this encounter Visit Diagnoses Not on filedocumented in this encounter"
--- OUTSIDE RECORDS SUMMARY | ~2018-12-21 | XMS | Encounter Summary ---
Demographics + + + | Address | [address] | | | [place] [address] | + + + | Home Phone [...] Team Providers + +------+ + | Care Logging Operations Inspector Name | Role | Phone [...] Lab findings, | | 2014 | | [facility] | [address] | teaching, guidance, | | | | [address] | and counseling | | | | [address] | Rd [place], [place] | | | | | [address] | [address] | | | | | [place], [place] | [phone] | | | | | [address] | | | | | | [phone] | | | +--------+ + + + [...] [address] | | | | | | [place], [place] | | | | | | [address] | | | | | | [phone] | | | | | | | | +--------+---------+ + + + documented as of this encounter Visit Diagnoses Not on filedocumented in this encounter"
--- OUTSIDE RECORDS SUMMARY | ~2018-12-21 | XMS | Encounter Summary ---
Demographics + + + | Address | [address] | | | [place] [address] | + + + | Home Phone [...] Team Providers + +------+ + | Care Personnel Records Clerk Name | Role | Phone | [...] | | 2017 | | Medical at [facility] | [address] | | | | | Floor [address] | [place], [place] | | | | | [place] Mailcode: CH16D | [address] | | | | | [facility] | [phone] | | | | | and Healing, | | | | | | [facility] | | | | | | [place], [place] | | | | | | [address] | | | | | | [phone] | | | +--------+--------+ + + + [...] [address] | | | | | | [place], [place] | | | | | | [address] | | | | | | [phone] | | | | | | | | +--------+---------+ + + + documented as of this encounter Visit Diagnoses Not on filedocumented in this encounter"
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
--- OUTSIDE RECORDS SUMMARY | ~2018-12-21 | XMS | Encounter Summary ---
Demographics + + + | Address | [address] | | | [place] [address] | + + + | Home Phone [...] + + + | Author | [facility] | + + + | Organization | [facility] | + + + | Address | Unknown | + + + | Phone | Unavailable | + + + Support + + +---------+ + | Name | Relationship | Address | Phone | + + +---------+ + | Arnoldo Mata | ECON | Unknown | | + + +---------+ + Care Team Providers + +------+ + | Care Silviculture Forester Name | Role | Phone | + [...] | 2018 | Encounter | Medical at [facility] | MD [address] | Advice please! | | | | Floor [address] | [facility] [place] | | | | | Ave Mailcode: CH16D | [address] | | | | | [facility] | [phone] | | | | | and Healing, | | | | | | | | | | | | Floor [place], [place] | | | | | | [address] | | | | | | [phone] | | | +--------+ + + + [...] | | 2019 | Visit | | [address] | | | | | | [place], [place] | | | | | | [address] | | | | | | [phone] | | | | | | | | +--------+---------+ + + + documented as of this encounter Visit Diagnoses Not on filedocumented in this encounter"
--- OUTSIDE RECORDS SUMMARY | ~2018-12-21 | XMS | Encounter Summary ---
Demographics + + + | Address | [address] | | | [place] [address] | + + + | Home Phone | | + + + | Preferred Language | Unknown | + + + | Marital Status | | + + + | Samaritan Affiliation | Unknown | + + + [...] Team Providers + +------+ + | Care Cripple Cutter Name | Role | Phone | + [...] | | | | | itching | [place] | [address] | | | | | Lichen | Womens | [address] | | | | | sclerosus et | [facility] | [place] | | | | | atrophicus | [address] | [address] | | | | | | [address] | Pavilion | | | | | | [address] | [place], [place] | | | | | | [place], [place] | [address] | | | | | | [address] | Phone: | | | | | | Phone: | [phone] | | | | | | [phone] | Fax: | | | | | | Fax: | [phone] | | | | | | [phone] | | +--------+--------+ + + + + Encounter Details +--------+---------+ + + + | Date | Type | Department | Care Team | Description | +--------+---------+ + + + | 12/28/ | Office | [facility] | Ale[place]ander, | Acantholytic | | 2016 | Visit | [facility] at [place] | [address] | vesicular dermatitis | | | | [address] | [address] | of the genitals | | | | [address] | Rd [place], [place] | (Primary Dx); | | | | [address] | [address] | Priyanka | | | | [place], [place] | [phone] | disease; Encounter | | | | [address] | | for other | | | | [phone] | | contraceptive | | | | [...] w/o any VASELIN E. [facility] [place] [facility] for you. Consider [...] Rashawn (Kasey estrada); Delivered last child in [place]. 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 [place] like this was great fit--both voice and [...] correlation with immunofluorescence studies is recommended. Materials Returned:[id number] x 5 slides My electronic signature indicates [...] positive and negative control for each immunoreactant. JORGEM:sandee 12/29/14 VULVAR BIOPSY November 2014 DIAGNOSIS: INTRAEPIDERMAL [...] diagnosis. Rendering Diagnostician: Jose A Lim MD [facility] [address] [facility] [address] [place] [address] Past Medical History Diagnosis Date Lichen sclerosus Fibromyalgia Psoriasis Past Surgical History Procedure Laterality Date section 01/10/13 Tonsillectomy 09/2010 Family History Problem Relation Thyroid Mother Depression Mother Arthritis Father Asthma sibling Thyroid sibling No LMP recorded. 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 Sexual Activity: Patient is sexually active with a male partner. Contraception: nothing. Sexually Transmitted Infections: No history. Obstetric History: deliveries: 1. Current Outpatient Prescriptions Medication Sig DESONIDE TOP Apply to affected area. lidocaine 5 % topical ointment apply to vulva as needed for pain Vit27&Aampplo-Qmwa-WP 60 mg iron-1 mg oral tablet Take by mouth. No current facility-administered medications for this visit. ALLERGIES: Oxycodone SOCIAL HISTORY AND HABITS: Patient is and lives with partner and children (s). Occupation is [employer] in [place] on [employer] ([employer] She is a nonsmoker. REVIEW OF SYSTEMS: [...] mimic Sujit Sujit disease, Darier's disease, and Nobleton's disease histologically , but it is differentiated [...] [facility] documented in this encounter Plan of Treatment +--------+---------+ + + + | Date | Type | Specialty | Care Team | Description | +--------+---------+ + + + | 01/27/ | Office | Dermatology | Keara Kraus, | | | 2019 | Visit | | [address] | | | | | | [place], [place] | | | | | | [address] | | | | | | [phone] | | | | | | | [...]
--- OUTSIDE RECORDS SUMMARY | ~2018-12-21 | XMS | Encounter Summary ---
Demographics + + + | Address | [address] | | | [place] [address] | + + + | Home Phone | | + + + | Preferred Language | Unknown | + + + | Marital Status | | + + + | Amish Affiliation | Unknown | + + + | Race | White | + + + | Ethnic Group | Not or | + + + Author + + + | Author | [facility] | + + + | Organization | [facility] | + + + | Address | Unknown | + + + | Phone | Unavailable | + + + Support + + +---------+ + | Name | Relationship | Address | Phone | + + +---------+ + | Arnoldo Mata | ECON | Unknown | | + + +---------+ + Care Team Providers + +------+ + | Care Oil Field Operator Name | Role | Phone | [...] | | | | | itching | [place] | [address] | | | | | Lichen | Womens | [address] | | | | | sclerosus et | Clinic [facility] | Ariana Ann | | | | | atrophicus | [address] | [address]ric | | | | | | [address] | Pavilion | | | | | | [address] | [place], [place] | | | | | | [place], [place] | [address] | | | | | | [address] | Phone: | | | | | | Phone: | [phone] | | | | | | [phone] | Fax: | | | | | | Fax: | [phone] | | | | | | [phone] | | +--------+--------+ + + + + Encounter Details +--------+---------+ + + + | Date | Type | Department | Care Team | Description | +--------+---------+ + + + | 12/28/ | Office | [facility] | Aleksander, | Acantholytic | | 2016 | Visit | [facility] | MD [address] | vesicular dermatitis | | | | [address] | [address] | of the genitals | | | | [address] | Rd [place], [place] | (Primary Dx); | | | | Aric [address] | [address] | Priyanka | | | | [place], [place] | [phone] | disease; Encounter | | | | [address] | | for other | | | | [phone] | | contraceptive | | | | [...] w/o any VASELIN E. [facility] [place] can [facility] an IUD for you. Consider [...] Rashawn (Kasey estrada); Delivered last child in [place]. 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 [place] like this was great fit--both voice and [...] correlation with immunofluorescence studies is recommended. Materials Returned:[id number] x 5 slides My electronic signature indicates [...] diagnosis. Rendering Diagnostician: Jose A Lim MD [facility] [address] [facility] [address] [place] [address] Past Medical History Diagnosis Date Lichen sclerosus Fibromyalgia Psoriasis Past Surgical History Procedure Laterality Date section 01/10/13 Tonsillectomy 09/2010 Family History Problem Relation Thyroid Mother Depression Mother Arthritis Father Asthma sibling Thyroid sibling No LMP recorded. 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 Sexual Activity: Patient is sexually active with a male partner. Contraception: nothing. Sexually Transmitted Infections: No history. Obstetric History: deliveries: 1. Current Outpatient Prescriptions Medication Sig DESONIDE TOP Apply to affected area. lidocaine 5 % topical ointment apply to vulva as needed for pain Vit27&Mzzsmta-Vffe-SC 60 mg iron-1 mg oral tablet Take by mouth. No current facility-administered medications for this visit. ALLERGIES: Oxycodone SOCIAL HISTORY AND HABITS: Patient is and lives with partner and children (s). 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 She is a nonsmoker. REVIEW [...] mimic Sujit Sujit disease, Darier's disease, and [place]'s disease histologically , but it is differentiated [...] in [facility] [place] documented in this encounter Plan of Treatment +--------+---------+ + + + | Date | Type | Specialty | Care Team | Description | +--------+---------+ + + + | 01/27/ | Office | Dermatology | Keara Kraus, | | | 2019 | Visit | | [address] | | | | | | [place], [place] | | | | | | [address] | | | | | | [phone] | | | | | | | [...]
--- OUTSIDE RECORDS SUMMARY | ~2018-12-21 | XMS | Encounter Summary ---
Demographics + + + | Address | [address] | | | [place] [address] | + + + | Home Phone | | + + + | Preferred Language | Unknown | + + + | Marital Status | | + + + | Moravian Affiliation | Unknown | + + + | Race | White | + + + | Ethnic Group | Not or | + + + Author + + + | Author | [facility] | + + + | Organization | [facility] | + + + | Address | Unknown | + + + | Phone | Unavailable | + + + Support + + +---------+ + | Name | Relationship | Address | Phone | + + +---------+ + | Arnoldo Mata | ECON | Unknown | | + + +---------+ + Care Team Providers + +------+ + | Care Manager Management Name | Role | Phone | + [...] | Keara Kraus, | Discussion | | 2017 | | Medical at [facility] [address] | [address] | | | | | Floor [address] | [place], [place] | | | | | [address] Mailcode: CH16D | [address] | | | | | [facility] | [phone] | | | | | and Healing, | | | | | | [facility] | | | | | | Floor [place], [place] | | | | | | [address] | | | | | | [phone] | | | +--------+ + + + [...] | | 2018 | Visit | | [address] | | | | | | [place], [place] | | | | | | [address] | | | | | | [phone] | | | | | | | | +--------+---------+ + + + documented as of this encounter Visit Diagnoses Not on filedocumented in this encounter"
--- OUTSIDE RECORDS SUMMARY | ~2018-12-21 | XMS | Encounter Summary ---
Demographics + + + | Address | [address] | | | [place] [address] | + + + | Home Phone | | + + + | Preferred Language | Unknown | + + + | Marital Status | | + + + | Mu-Ism Affiliation | Unknown | + + + | Race | White | + + + | Ethnic Group | Not or | + + + Author + + + | Author | [facility] | + + + | Organization | [facility] | + + + | Address | Unknown | + + + | Phone | Unavailable | + + + Support + + +---------+ + | Name | Relationship | Address | Phone | + + +---------+ + | Arnoldo Mata | ECON | Unknown | | + + +---------+ + Care Team Providers + +------+ + | Care Platemaker Name | Role | Phone | + [...] | 2018 | Encounter | Medical at [facility] 16 | MD [address] | Remission | | | | Floor [address] | [place], [place] | | | | | Ave Mailcode: CH16D | [address] | | | | | [facility] | [phone] | | | | | and Healing, | | | | | | | | | | | | Floor [place], [place] | | | | | | [address] | | | | | | [phone] | | | +--------+ + + + [...] [address] | | | | | | [place], [place] | | | | | | [address] | | | | | | [phone] | | | | | | | | +--------+---------+ + + + documented as of this encounter Visit Diagnoses Not on filedocumented in this encounter"
--- OUTSIDE RECORDS SUMMARY | ~2018-12-21 | XMS | Encounter Summary ---
Demographics + + + | Address | [address] | | | [place] [address] | + + + | Home Phone | | + + + | Preferred Language | Unknown | + + + | Marital Status | | + + + | Mosque Affiliation | Unknown | + + + | Race | White | + + + | Ethnic Group | Not or | + + + Author + + + | Author | [facility] | + + + | Organization | [facility] | + + + | Address | Unknown | + + + | Phone | Unavailable | + + + Support + + +---------+ + | Name | Relationship | Address | Phone | + + +---------+ + | Arnoldo Mata | ECON | Unknown | | + + +---------+ + Care Team Providers + +------+ + | Care Adobe Flex Developer Name | Role | Phone | + [...] Services | | | [facility], | [address] | | | Required | | Acantholytic | MD [address] | | | | | vesicular | Blanca Marie | Mailcode: | | | | | dermatitis | Gregory Ann | [facility]16D Center | | | | | Monika | [place], [place] | for Health | | | | | y disease | [address] | and Healing, | | | | | Procedures | Phone: | Building [address], | | | | | CONSULT TO | [phone] | 16th Floor | | | | | DERM & DERM | Fax: | [place], [place] | | | | | SURGERY | [phone] | [address] | | | | | | | Phone: | | | | | | | [phone] | | | | | | | Fax: | | | | | | | [phone] | +--------+ + + + + + Encounter Details +--------+---------+ + + + | Date | Type | Department | Care Team | Description | +--------+---------+ + + + | 01/29/ | Office | Dermatology | Keara Kraus, | Acantholytic | | 2017 | Visit | Medical at [facility] 16 | [address] | vesicular dermatitis | | | | Floor [address] | [place], [place] | of the genitals | | | | Ave Mailcode: CH16D | [address] | (Primary Dx) | | | | [facility] | [phone] | | | | | and Healing, | | | | | | Building | | | | | | Floor [place], [place] | | | | | | [address] | | | | | | [phone] | | | +--------+---------+ + + + [...] with the document ation. Keara Kraus M.D. Set Up Mold Technician of Dermatology. Blaine Block MD - 01/29/2017 10:00 AM PSTDERMATOLOGY FOLLOW-UP VISIT Last Appointment in [facility] was on 01/08/17 at 3:40 pm [...] NATANAEL Lo MD Resident, Department of Dermatology [facility] Pager [phone] documented in this en counter Plan of Treatment +--------+---------+ + + + | Date | Type | Specialty | Care Team | Description | +--------+---------+ + + + | 01/27/ | Office | Dermatology | Keara Kraus, | | | 2019 | Visit | | [address] | | | | | | [place], [place] | | | | | | [address] | | | | | | [phone] | | | | | | | [...] | | | LABORATORY | | | MALAGASY | | | SERVICES, | | | [...] | + + + + + | [facility] | [address] | [place] [address] | | | SERVICES, CORE | [address] | | | + + + + + documented in this encounter Visit Diagnoses + + | Diagnosis | + + | 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
--- OUTSIDE RECORDS SUMMARY | ~2018-12-21 | XMS | Encounter Summary ---
Demographics + + + | Address | [address] | | | [place] [address] | + + + | Home Phone | | + + + | Preferred Language | Unknown | + + + | Marital Status | | + + + | Uatsdin Affiliation | Unknown | + + + | Race | White | + + + | Ethnic Group | Not or | + + + Author + + + | Author | [facility] | + + + | Organization | [facility] | + + + | Address | Unknown | + + + | Phone | Unavailable | + + + Support + + +---------+ + | Name | Relationship | Address | Phone | + + +---------+ + | Arnoldo Mata | ECON | Unknown | | + + +---------+ + Care Team Providers + +------+ + | Care Technical Account Manager Name | Role | Phone | + +------+ + | Robert Velazquez DO | PCP | Unavailable | + +------+ + Encounter Details +--------+ + + + + | Date | Type | Department | Care Team | Description | +--------+ + + + + | 12/25/ | Hospital | Dermatopathology | | | | 2014 | Encounter | [address] | | | | | | Mailcode: CH16D | | | | | | [place] [facility] | | | | | | and Healing, | | | | | | [address] | | | | | | [place], [place] | | | | | | [address] | | | | | | [phone] | | | +--------+ + + + [...] + + documented as of this encounter Medications at Time of Discharge + + + +---------+--------+ + | Medication | Sig | Dispensed | Refills | Start | End Date | | | | | | Date | | + + + +---------+--------+ + | | Take by mouth. | | 0 | | | | Vit27&Qewsxil-Derb-B | | | | | | | A 60 mg iron-1 mg | | | | | | | oral tablet | | | | | | + + + +---------+--------+ + documented as of this encounter Plan of Treatment +--------+---------+ + + + | Date | Type | Specialty | Care Team | Description | +--------+---------+ + + + | 01/27/ | Office | Dermatology | Keara Kraus, | | | 2019 | Visit | | [address] | | | | | | [place], [place] | | | | | | [address] | | | | | | [phone] | | | | | | | | +--------+---------+ + + + documented as of this encounter Procedures + +--------+ + + + | Procedure Name | Priori | Date/Time | Associated Diagnosis | Comments | | | ty | | | | + +--------+ + + + | DERMATOPATHOLOGY(CON | Routin | 12/25/2014 | | Results for this | | SULT) | e | | | procedure are in the | | | | | | results section. | + +--------+ + + + | PATHOLOGY | | 08/06/2014 | | Results for this | | | | 12:00 AM | | procedure are in the | | | | PDT | | results section. 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 There | | | | | | is a superficialmixed | | | | | | infiltrate of | | | | | | lymphocytes with | | | | | | occasional neutrophils | | | | | | andeosinophils, and | | | | | | scattered | | | | | | melanophages. | | | | | | DIAGNOSIS:INTRAEPIDERMAL | | | | | | VESICULAR DERMATITIS | | | | | | WITH ACANTHOLYSIS AND | | | | | | DYSKERATOSIS. | | | | | | NOTE: These combined | | | | | | features make it | | | | | | challenging to | | | | | | differentiate | | | | | | betweendermatoses, where | | | | | | this degree of | | | | | | dyskeratosis is more | | | | | | consistent withDARIER'S | | | | | | DISEASE, and the broad | | | | | | acantholytic vesicle is | | | | | | consistent | | | | | | withHAILEY-SUJIT | | | | | | DISEASE. Both of these | | | | | | conditions can have | | | | | | overlappinghistologic | | | | | | features, and clinical | | | | | | features may help in | | | | | | arriving at a | | | | | | morespecific diagnosis. | | | | | | The differential | | | | | | diagnosis includes | | | | | | PAPULARACANTHOLYTIC | | | | | | DERMATOSIS OF THE | | | | | | GENITOCRURAL / PERINEAL | | | | | | REGION, and althoughthis | | | | | | diagnosis' relation to | | | | | | the previously mentioned | | | | | | entities is notentirely | | | | | | clear, it may represent | | | | | | a variant or | | | | | | segmental/localized | | | | | | form.PEMPHIGUS | | | | | | uncommonly demonstrates | | | | | | this pattern and is not | | | | | | favored, | | | | | | althoughcorrelation with | | | | | | immunofluorescence | | | | | | studies is | | | | | | recommended. | | | | | | Materials | | | | | | Returned:[id number] | | | | | | 1 x 5 slides My | | | | | | [...] | | | | | | Diagnostician: Chuyita | | | | | | sharmila Adams | | | | | | MDPathologistElectronica | | | | | | lilliam Signed | | | | | | 12/28/2014 8:25AM | | | | + + + [...] + + + | [facility] | [address] | [place] [address] | | | DERMATOPATHOLOGY | [address] | | | + + + + + PATHOLOGY (08/06/2014 12:00 AM PDT) + + + | Narrative | Performed At | + + + | | | + + + documented in this encounter Visit Diagnoses Not on filedocumented in this encounter"
--- OUTSIDE RECORDS SUMMARY | ~2018-12-21 | XMS | Encounter Summary ---
Demographics + + + | Address | [address] | | | [place] [address] | + + + | Home Phone | | + + + | Preferred Language | Unknown | + + + | Marital Status | | + + + | Mormonism Affiliation | Unknown | + + + | Race | White | + + + | Ethnic Group | Not or | + + + Author + + + | Author | [facility] | + + + | Organization | [facility] | + + + | Address | Unknown | + + + | Phone | Unavailable | + + + Support + + +---------+ + | Name | Relationship | Address | Phone | + + +---------+ + | Arnoldo Mata | ECON | Unknown | | + + +---------+ + Care Team Providers + +------+ + | Care Grain Manager Name | Role | Phone | [...] | | | | | itching | Angelina | [address] | | | | | Lichen | Womens | [address] | | | | | sclerosus et | Clinic [facility] | [address] | | | | | atrophicus | [address] | [address] | | | | | | [address] | Pavilion | | | | | | [address] | [place], [place] | | | | | | [place], [place] | [address] | | | | | | [address] | Phone: | | | | | | Phone: | [phone] | | | | | | [phone] | Fax: | | | | | | Fax: | [phone] | | | | | | [phone] | | +--------+--------+ + + + + Encounter Details +--------+---------+ + + + | Date | Type | Department | Care Team | Description | +--------+---------+ + + + | 01/13/ | Office | [facility] | Aleksander | Acantholytic | | 2015 | Visit | [facility] [place] | MD [address] | vesicular dermatitis | | | | [address] | (Primary Dx) | | | | [address] | Rd [place], [place] | | | | | [address] | [address] | | | | | [place], [place] | [phone] | | | | | [address] | | | | | | [phone] | | | +--------+---------+ + + + [...] + + + | Blood Pressure | 112/76 | 01/13/2015 3:21 PM | | | | | PDT | | + + + + + | Pulse | 80 | 01/13/2015 3:21 PM | | | | | PDT [...] + + + + | Weight | 94 kg (207 lb 4.8 | 01/13/2015 3:21 PM | | | | oz) | PDT | | + + + + + | Height | - | - | | + + + + + | Body Mass Index | 35.58 | 12/24/2014 8:27 AM | | | | | PDT | | + + + + + documented in this encounter Patient Instructions Patient Instructions [facility] Armijo MD - 01/13/2015 7:48 AM PDTWhat is known? Papular acantholytic dermatosis of the [...] mimic Sujit Sujit disease, Darier's disease, and [place]'s disease histologically , but it is differentiated [...] is recommended among practicing dermatologists and pathologists. 1. Put some vaseline on your skin daily to keep those lesions soft 2. You can use lidocaine 5% ointment on your skin as needed 3. I'll see you in August after your delivery--why dont you call after [place] or into the [facility] for that appt in August documented in this encounter Progress Notes [facility] Armijo MD - 01/13/2015 7:32 AM PDT VULVAR INTERVAL EXAM Dorothy "Marcela Mata is a 24 y.o. female T1 P0 SAB0 TAB0 L1 Mult0 Ect0 who pr esents today with for discussion of her vulvar skin disease. She returned about 2.5 wks ago for a second biopsy for IMMUNO-FLOURESCENCE. The biopsy results are listed below. 1. 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 Likely Sujit Edwards from the biopsies below. 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 Irene is here to discuss treatment options with the assumption that this is an 2. Social: arrived, 2yo daughter named Keiry; Delivered last child in [place]. 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 Does VOICE GOAL: Sex less painful; sx control for the itch. CONSULT from outside slides DIAGNOSIS: INTRAEPIDERMAL VESICULAR [...] correlation with immunofluorescence studies is recommended. Materials Returned:[id number] x 5 slides My electronic signature indicates [...] Rendering Diagnostician: Jose A Lim MD [facility] [address] [address] Past Medical History Diagnosis Date Lichen sclerosus Fibromyalgia Psoriasis Past Surgical History Procedure Laterality Date section 01/10/13 Tonsillectomy 09/2010 Family History Problem Relation Thyroid Mother Depression Mother Arthritis Father Asthma sibling Thyroid sibling No LMP recorded. 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 Sexual Activity: Patient is sexually active with a male partner. Contraception: nothing. Sexually Transmitted Infections: No history. Obstetric History: deliveries: 1. Current Outpatient Prescriptions Medication Sig DESONIDE TOP Apply to affected area. Vit27&Kbsdrtk-Rbhz-HV 60 mg iron-1 mg oral tablet Take [...] nearly confluent. Vagina: normal and well estrogenized. Assessment: 24yo with vulvar skin changes and biopsies suggestive of Papular Acant holytic Dermatosis of the Genitocrural / Perineal Region.--may be Sujit Sujit or Darier's Disease but less likely since these are both genetically based dermatosis that affect other regions of the body which is not reported in this case. Plan: topical steroids for now since --some limitations related to gestation. Repo rts of tacrolimus success but not able to use in . Other options (but also not avai lable in ) is retinoids and local ablation (laser). Would eventually do well with a consult with Cecy Garcia MD here in DERM SURGERY. Will plan to see her after her delivery i n May for re-evaluation of treatment. In the meantime, I recommend topical lidocaine 5% oint ment for the treatment of your skin when it is painful and vaseline to keep the lesions soft What is known? Papular acantholytic dermatosis of [...] mimic Sujit Sujit disease, Darier's disease, and [place]'s disease histologically , but it is differentiated [...] in [facility] [place] documented in this encounter Plan of Treatment +--------+---------+ + + + | Date | Type | Specialty | Care Team | Description | +--------+---------+ + + + | 11/11/ | Office | Dermatology | Keara Kraus, | | | 2018 | Visit | | [address] | | | | | | [place], [place] | | | | | | [address] | | | | | | [phone] | | | | | | | | +--------+---------+ + + + documented as of this encounter Visit Diagnoses + + | Diagnosis | + + | 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
--- OUTSIDE RECORDS SUMMARY | ~2018-12-21 | XMS | Encounter Summary ---
Demographics + + + | Address | [address] | | | [place] [address] | + + + | Home Phone [...] Team Providers + +------+ + | Care Journalism Teacher Name | Role | Phone | [...] [facility] | | | | | [facility] | [place], [place] | for Health | | | | | y disease | [address] | and Healing, | | | | | Procedures | Phone: | Building 1, | | | | | CONSULT TO | [phone] | 16th Floor | | | | | DERM & DERM | Fax: | [place], [place] | | | | | SURGERY | [phone] | [address] | | | | | | | Phone: | | | | | | | [phone] | | | | | | | Fax: | | | | | | | [phone] | +--------+ + + + + + Encounter Details +--------+---------+ + + + | Date | Type | Department | Care Team | Description | +--------+---------+ + + + | 01/08/ | Office | Dermatology | Keara Kraus, | Acantholytic | | 2017 | Visit | Medical at [facility] | MD [address] | vesicular dermatitis | | | | Floor [address] | [place], [place] | of the genitals | | | | Ave Mailcode: CH16D | [address] | (Primary Dx) | | | | [facility] | [phone] | | | | | and Healing, | | | | | | Building | | | | | | Floor [place], [place] | | | | | | [address] | | | | | | [phone] | | | +--------+---------+ + + + [...] with the document ation. Keara Kraus M.D. Printer'S Assistant of Dermatology. Blaine Watson MD - 01/08/2017 3:40 PM PDT . DERMATOLOGY NEW PATIENT CONSULTATION Consulting physician: Emerald Armijo CHIEF COMPLAINT: Sujit-sujit disease HISTORY OF PRESENT ILLNESS: Dorothy Mata is a 26 y.o. female sent by Dr. Emerald Armijo for consultation eav schumacher Papular Acantholytic Dermatosis of the Vulva. [...] vaginal ring, , Disp: , Rfl: 3 Vit27&Fbevjxt-Kwsq-VX 60 mg iron-1 mg oral tablet, Take [...] correlation with immunofluorescence studies is recommended. Materials Returned:[id number] x 5 slides My electronic signature indicates [...] diagnosis. Rendering Diagnostician: Jose A Lim MD [facility] [address] [address] ASSESSMENT AND PLAN: Dorothy Mata is a [...] Lo MD Resident, Department of Dermatology [facility] Pager [phone] documented in this en counter Plan of Treatment +--------+---------+ + + + | Date | Type | Specialty | Care Team | Description | +--------+---------+ + + + | 01/27/ | Office | Dermatology | Keara Kraus, | | | 2018 | Visit | | [address] | | | | | | [place], [place] | | | | | | [address] | | | | | | [phone] | | | | | | | | +--------+---------+ + + + documented as of this encounter Visit Diagnoses + + | Diagnosis | + + | 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
--- OUTSIDE RECORDS SUMMARY | ~2018-12-21 | XMS | Encounter Summary ---
Demographics + + + | Address | [address] | | | [place] [address] | + + + | Home Phone | | + + + | Preferred Language | Unknown | + + + | Marital Status | | + + + | Cheondoism Affiliation | Unknown | + + + | Race | White | + + + | Ethnic Group | Not or | + + + Author + + + | Author | [facility] | + + + | Organization | [facility] | + + + | Address | Unknown | + + + | Phone | Unavailable | + + + Support + + +---------+ + | Name | Relationship | Address | Phone | + + +---------+ + | Arnoldo Mata | ECON | Unknown | | + + +---------+ + Care Team Providers + +------+ + | Care Petroleum Engineer Name | Role | Phone | + +------+ + | Robert Velazquez DO | PCP | Unavailable | + +------+ + Encounter Details +--------+ + + + + | Date | Type | Department | Care Team | Description | +--------+ + + + + | 01/07/ | MyChart | [place] [facility] | Ale[place], | | | 2014 | Encounter | [facility] at [facility] | [address] | | | | | [address] | [address] [facility] | | | | | [facility] [address] | Rd [place], [place] | | | | | [address] | [address] | | | | | [place], [place] | [phone] | | | | | [address] | | | | | | [phone] | | | +--------+ + + + [...] [address] | | | | | | [place] | | | | | | [address] | | | | | | [phone] | | | | | | | | +--------+---------+ + + + documented as of this encounter Visit Diagnoses Not on filedocumented in this encounter"
--- OUTSIDE RECORDS SUMMARY | ~2018-12-21 | XMS | Encounter Summary ---
Demographics + + + | Address | [address] | | | [place] [address] | + + + | Home Phone [...] Team Providers + +------+ + | Care Business Banking Sales Assistant Name | Role | Phone | + +------+ + | Robert Velazquez DO | PCP | Unavailable | + +------+ + Encounter Details +--------+ + + + + | Date | Type | Department | Care Team | Description | +--------+ + + + + | 12/25/ | Hospital | Dermatopathology | | | | 2014 | Encounter | [address] | | | | | | Mailcode: CH16D | | | | | | [facility] | | | | | | and Healing, | | | | | | [address] | | | | | | [place], [place] | | | | | | [address] | | | | | | [phone] | | | +--------+ + + + [...] | | 0 | | | | Vit27&Fyqtmmz-Tjyc-N | | | | | | | [...] | | 2019 | Visit | | [address] | | | | | | [place], [place] | | | | | | [address] | | | | | | [phone] | | | | | | | [...] dystrophy.Materials | | | | | | Received:[id number] | | | | | | 1 [...] consistent | | | | | | withHAILEY-SUIJT | | | | | | DISEASE. [...] Materials | | | | | | Returned:[id number] | | | | | | 1 [...] | [facility] | [address] | [place] [address] | | | DERMATOPATHOLOGY | [address] | | | + + + + + PATHOLOGY (08/06/2014 12:00 AM PDT) + + + | Narrative | Performed At | + + + | | | + + + documented in this encounter Visit Diagnoses Not on filedocumented in this encounter"
--- OUTSIDE RECORDS SUMMARY | ~2018-12-21 | XMS | Encounter Summary ---
Demographics + + + | Address | [address] | | | [place] [address] | + + + | Home Phone [...] Team Providers + +------+ + | Care Chemical Equipment Sales Engineer Name | Role | Phone | [...] | | 2017 | | Medical at [facility] 16 | [address] | | | | | Floor [address] | [place], [place] | | | | | [address] Mailcode: CH16D | [address] | | | | | [facility] | [phone] | | | | | and Healing, | | | | | | [facility] | | | | | | Floor [place], [place] | | | | | | [address] | | | | | | [phone] | | | +--------+ + + + [...] | | 2018 | Visit | | [address] | | | | | | [place], [place] | | | | | | [address] | | | | | | [phone] | | | | | | | | +--------+---------+ + + + documented as of this encounter Visit Diagnoses Not on filedocumented in this encounter"
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
--- OUTSIDE RECORDS SUMMARY | ~2018-12-21 | XMS | Encounter Summary ---
Demographics + + + | Address | [address] | | | [place] [address] | + + + | Home Phone | | + + + | Preferred Language | Unknown | + + + | Marital Status | | + + + | Anglican Affiliation | Unknown | + + + | Race | White | + + + | Ethnic Group | Not or | + + + Author + + + | Author | [facility] | + + + | Organization | [facility] | + + + | Address | Unknown | + + + | Phone | Unavailable | + + + Support + + +---------+ + | Name | Relationship | Address | Phone | + + +---------+ + | Arnoldo Mata | ECON | Unknown | | + + +---------+ + Care Team Providers + +------+ + | Care Composing Room Machinist Apprentice Name | Role | Phone | + [...] | 2018 | Encounter | Medical at [facility] | MD [address] | Advice please! | | | | Floor [address] | [facility] [place] | | | | | Ave Mailcode: CH16D | [address] | | | | | [facility] | [phone] | | | | | and Healing, | | | | | | | | | | | | Floor [place], [place] | | | | | | [address] | | | | | | [phone] | | | +--------+ + + + [...] [address] | | | | | | [place], [place] | | | | | | [address] | | | | | | [phone] | | | | | | | | +--------+---------+ + + + documented as of this encounter Visit Diagnoses Not on filedocumented in this encounter"
--- OUTSIDE RECORDS SUMMARY | ~2018-12-21 | XMS | Encounter Summary ---
Demographics + + + | Address | [address] | | | [place] [address] | + + + | Home Phone [...] Team Providers + +------+ + | Care Salvage Determiner Name | Role | Phone | + [...] | 2017 | Visit | Medical at [facility] 16 | [address] | (Primary Dx); | | | | Floor [address] | [place], [place] | Priyanka | | | | [place] Mailcode: 16D | [address] | disease | | | | [facility] | [phone] | | | | | and [place], | | | | | | [facility] | | | | | | [place], [place] | | | | | | [address] | | | | | | [phone] | | | +--------+---------+ + + + [...] Miya Riley MD - 01/21/2018 10:40 AM [facility] CE[employer] [facility] DEPARTMENT OF DERMATOLOGY [address] [place] [address], BIOPSY WOUND CARE INSTRUCTIONS General Care Wound [...] is rare, but if present, try an xvya-ear-usitbie pain medication such as Tylenol ev amanda [...] ANY QUESTIONS, PLEASE CONTACT THE CLINIC AT [phone] After hours, please call the hospital color printer operator and ask for the on-call lead sql developer at [phone]. Please note: In addition to your office [...] note for this encounter. Keara Kraus M.D. Oil Well Fishing Tool Operator of Dermatology. Miya Mcadams MD - 1 03/23/2017 10:40 AM PSTPlease let patient know benign biopsy results; c/w congenital nevus.El ectronically signed by Miya Riley MD at 01/24/2018 2:12 PM Miya Mcadams MD - 2017 10:40 AM PSTDERMATOLOGY FOLLOW-UP VISIT Last Appointment in [facility] was on 01/29/17 at 3:42 pm with [...] except for the following: -on the left yarsanism is a brown pedunculated papule(photo and biopsy [...] retinoid s 2. 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) Procedure Note - [...] Miya Riley MD MPH Dermatology Resident, PGY3 [facility] documented in this en counter Plan of Treatment +--------+---------+ + + + | Date | Type | Specialty | Care Team | Description | +--------+---------+ + + + | 01/27/ | Office | Dermatology | Keara Kraus, | | | 2019 | Visit | | [address] | | | | | | [place], [place] | | | | | | [address] | | | | | | [phone] | | | | | | | | +--------+---------+ + + + documented as of this encounter Procedures + +--------+ + + + | Procedure Name | Priori | Date/Time | Associated Diagnosis | Comments | | | ty | | | | + +--------+ + + + | MI BIOPSY OF SKIN | Routin | 01/31/2018 [...] | Jennifer Cadena | | | (LEFT SIKHISM)NOTE: There | | | Judith Adams, | [...] | | | | | | "Left yarsanism" and | | | | | | consists of two | | | | | | irregular shaves of | | | | | | papular txphd-xri-eomlr | | | | | | skin, [...] [facility] | [address] | [place] [address] | | | DERMATOPATHOLOGY | [address] [...]
--- OUTSIDE RECORDS SUMMARY | ~2018-12-21 | XMS | Encounter Summary ---
Demographics + + + | Address | [address] | | | [place] [address] | + + + | Home Phone [...] Team Providers + +------+ + | Care Media Production Support Manager Name | Role | Phone | [...] | | | | | itching | [place] | [address] | | | | | Lichen | Womens | [address] | | | | | sclerosus et | Clinic [address] | [address] | | | | | atrophicus | [address] | [address] | | | | | | [address] | Pavilion | | | | | | [address] | [place], [place] | | | | | | [place], [place] | [address] | | | | | | [address] | Phone: | | | | | | Phone: | [phone] | | | | | | [phone] | Fax: | | | | | | Fax: | [phone] | | | | | | [phone] | | +--------+--------+ + + + + Encounter Details +--------+---------+ + + + | Date | Type | Department | Care Team | Description | +--------+---------+ + + + | 01/13/ | [facility] [place] | 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 Irene is here to discuss treatment options with the assumption that this is an 2. Social: arrived, 3yo daughter named Keiry; Delivered last child in [place]. 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 Materials Returned:[id number] x 5 slides My electronic signature indicates [...] diagnosis. Rendering Diagnostician: Jose A Lim MD [facility] [address] [address] Past Medical History Diagnosis Date Lichen sclerosus Fibromyalgia Psoriasis Past Surgical History Procedure Laterality Date section 01/10/13 Tonsillectomy 09/2010 Family History Problem Relation Thyroid Mother Depression Mother Arthritis Father Asthma sibling Thyroid sibling No LMP recorded. 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 Sexual Activity: Patient is sexually active with a male partner. Contraception: nothing. Sexually Transmitted Infections: No history. Obstetric History: deliveries: 1. Current Outpatient Prescriptions Medication Sig DESONIDE TOP Apply to affected area. Vit27&Qlpvbue-Pcxp-OP 60 mg iron-1 mg oral tablet Take [...] mimic Sujit Sujit disease, Darier's disease, and Aberdeen's disease histologically , but it is differentiated [...] in [facility] documented in this encounter Plan of Treatment +--------+---------+ + + + | Date | Type | Specialty | Care Team | Description | +--------+---------+ + + + | 11/11/ | Office | Dermatology | Keara Kraus, | | | 2018 | Visit | | [address] | | | | | | [place], [place] | | | | | | [address] | | | | | | [phone] | | | | | | | | +--------+---------+ + + + documented as of this encounter Visit Diagnoses + + | Diagnosis | + + | 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
--- OUTSIDE RECORDS SUMMARY | ~2018-12-21 | XMS | Encounter Summary ---
Demographics + + + | Address | [address] | | | [place] [address] | + + + | Home Phone [...] + + + | Author | [facility] | + + + | Organization | [facility] | + + + | Address | Unknown | + + + | Phone | Unavailable | + + + Support + + +---------+ + | Name | Relationship | Address | Phone | + + +---------+ + | Arnoldo Mata | ECON | Unknown | | + + +---------+ + Care Team Providers + +------+ + | Care Manager Product Marketing Name | Role | Phone | + +------+ + | Robert Velazquez DO | PCP | Unavailable | + +------+ + Encounter Details +--------+ + + + + | Date | Type | Department | Care Team | Description | +--------+ + + + + | 01/07/ | MyChart | [place] [facility] | Aleksander, | | | 2014 | Encounter | [facility] at [place] | [address] | | | | | [address] | [address] [facility] | | | | | [facility] [address] | Rd [place], [place] | | | | | [address] | [address] | | | | | [place], [place] | [phone] | | | | | [address] | | | | | | [phone] | | | +--------+ + + + [...] [address] | | | | | | [place] | | | | | | [address] | | | | | | [phone] | | | | | | | | +--------+---------+ + + + documented as of this encounter Visit Diagnoses Not on filedocumented in this encounter"
--- OUTSIDE RECORDS SUMMARY | ~2018-12-21 | XMS | Encounter Summary ---
Demographics + + + | Address | [address] | | | [place] [address] | + + + | Home Phone [...] Team Providers + +------+ + | Care Button Cutting Machine Operator Name | Role | Phone | [...] | | | | | itching | [place] | [address] | | | | | Lichen | Womens | [address] | | | | | sclerosus et | Clinic [place] | [address] | | | | | atrophicus | [address] | [address] | | | | | | [address] | Pavilion | | | | | | [address] | [place], [place] | | | | | | [place], [place] | [address] | | | | | | [address] | Phone: | | | | | | Phone: | [phone] | | | | | | [phone] | Fax: | | | | | | Fax: | [phone] | | | | | | [phone] | | +--------+--------+ + + + + Encounter Details +--------+---------+ + + + | Date | Type | Department | Care Team | Description | +--------+---------+ + + + | 12/24/ | Office | [facility] | [place], | 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 If you are experiencing pain or irritation, [...] daughter named Keiry; Delivered last child in [place]. 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 Does VOICE GOAL: Sex less painful; sx control for the itch. Romario Lim MD [facility] [employer] [address] [place] [address] Past Medical History Diagnosis Date Lichen sclerosus Fibromyalgia Psoriasis Past Surgical History Procedure Laterality Date section 01/10/13 Tonsillectomy 09/2010 Family History Problem Relation Thyroid Mother Depression Mother Arthritis Father Asthma sibling Thyroid sibling No LMP recorded. 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 Sexual Activity: Patient is sexually active with a male partner. Contraception: nothing. Sexually Transmitted Infections: No history. Obstetric History: deliveries: 1. Current Outpatient Prescriptions Medication Sig DESONIDE TOP Apply to affected area. Vit27&Fugzmvy-Gntk-ZQ 60 mg iron-1 mg oral tablet Take [...] in [facility] documented in this encounter Plan of Treatment +--------+---------+ + + + | Date | Type | Specialty | Care Team | Description | +--------+---------+ + + + | 01/27/ | Office | Dermatology | Keara Kraus, | | | 2019 | Visit | | [address] | | | | | | [place], [place] | | | | | | [address] | | | | | | [phone] | | | | | | | [...] | + +--------+ + + + | DE BIOPSY | Routin | 12/23/2014 | Vulvar [...] foreach | | | | | | immunoreactant.[facility]:[id number] | | | | | | / [...] [facility] | Mailcode CH5D, [address] | [place] [address] | | | DERMATOPATHOLOGY | [address] | | | + + + + + documented in this encounter Visit Diagnoses + + | Diagnosis | + + | 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
--- OUTSIDE RECORDS SUMMARY | ~2018-12-21 | XMS | Encounter Summary ---
Demographics + + + | Address | [address] | | | [place] [address] | + + + | Home Phone | | + + + | Preferred Language | Unknown | + + + | Marital Status | | + + + | Druze Affiliation | Unknown | + + + | Race | White | + + + | Ethnic Group | Not or | + + + Author + + + | Author | [facility] | + + + | Organization | [facility] | + + + | Address | Unknown | + + + | Phone | Unavailable | + + + Support + + +---------+ + | Name | Relationship | Address | Phone | + + +---------+ + | Arnoldo Mata | ECON | Unknown | | + + +---------+ + Care Team Providers + +------+ + | Care Spout Worker Name | Role | Phone | [...] | | | | | itching | [place] | [address] | | | | | Lichen | Womens | [address] | | | | | sclerosus et | Clinic [place] | [address] | | | | | atrophicus | [address] | [address] | | | | | | [address] | Pavilion | | | | | | [address] | [place], [place] | | | | | | [place], [place] | [address] | | | | | | [address] | Phone: | | | | | | Phone: | [phone] | | | | | | [phone] | Fax: | | | | | | Fax: | [phone] | | | | | | [phone] | | +--------+--------+ + + + + Encounter Details +--------+---------+ + + + | Date | Type | Department | Care Team | Description | +--------+---------+ + + + | 12/09/ | Office | [facility] | [place] | Lichen sclerosus | | 2015 | Visit | [facility] [place] | [address] | (Primary Dx); | | | | [address] | [address] | Hypopigmentation; | | | | [address] | Rd [place], [place] | Vulvar dystrophy | | | | [address] | [address] | | | | | [place], [place] | [phone] | | | | | [address] | | | | | | [phone] | | | +--------+---------+ + + + [...] This may be up to a w brevig mission. If you are experiencing pain or irritation, [...] daughter named Keiry; Delivered last child in [place]. 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 Does VOICE GOAL: Sex less painful; sx control for the itch. Romario Lim MD [facility] [address] [place], [place] [address] Past Medical History Diagnosis Date Lichen sclerosus Fibromyalgia Psoriasis Past Surgical History Procedure Laterality Date section 01/10/13 Tonsillectomy 09/2010 Family History Problem Relation Thyroid Mother Depression Mother Arthritis Father Asthma sibling Thyroid sibling No LMP recorded. 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 Sexual Activity: Patient is sexually active with a male partner. Contraception: nothing. Sexually Transmitted Infections: No history. Obstetric History: deliveries: 1. Current Outpatient Prescriptions Medication Sig DESONIDE TOP Apply to affected area. Vit27&Wxtnzcc-Vjdz-[place] 60 mg iron-1 mg oral tablet Take [...] in [facility] documented in this encounter Plan of Treatment +--------+---------+ + + + | Date | Type | Specialty | Care Team | Description | +--------+---------+ + + + | 01/27/ | Office | Dermatology | Keara Kraus, | | | 2019 | Visit | | [address] | | | | | | [place], [place] | | | | | | [address] | | | | | | [phone] | | | | | | | [...] | + +--------+ + + + | GA BIOPSY | Routin | 12/09/2014 | Hypopigmentation [...] | + + + + + | [facility] - | [address] | [place] [address] | | | [place] | | | [...] [facility] | Mailcode CH5D, [address] | [place] [address] | | | DERMATOPATHOLOGY | [address] [...]
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
[2018-12-21] MEDS ORDERED: PRENATAL COMPL1 EACH PO (09:41)
--- NOTE | 2018-12-21 14:53 | EKG ---
[facility] [address] [place], [place] [address] Signed Normal sinus rhythm with sinus arrhythmia Normal ECG No previous ECGs available Confirmed by MATTHEW HERNANDEZ DO ([id number]) on 12/21/2018 2:53:27 PM Electronically Signed By: MATTHEW HERNANDEZ DO 12/21/18 1453 PATIENT NAME: NAVIN DURANLAURA Garcia Electrocardiogram DATE OF : 89 PHYSICIAN: MATTHEW HERNANDEZ DO REPORT #: [id number] REPORT IS CONFIDENTIAL AND NOT TO BE RELEASED WITHOUT AUTHORIZATION
== END 2018-12-21 11:09 | disposition home or self-care (01) ==
LOC: ED 09:20
DX: R20.0 Anesthesia of skin (principal); R20.2 Paresthesia of skin; Z91.040 Latex allergy status; Z88.5 Allergy status to narcotic agent
CPT/HCPCS: 71045; 93005; 93010; 99284-25

== ENCOUNTER 2019-01-09 06:25 | Emergency (ER) | payer OTHER ==
[~2019-01-09] VITALS: Ht 165.1 cm; Wt 102.5 kg
--- OUTSIDE RECORDS SUMMARY | ~2019-01-09 | XMS | Encounter Summary ---
Demographics + + + | Address | [address] | | | [place] [address] | + + + | Home Phone | | + + + | Preferred Language | Unknown | + + + | Marital Status | | + + + | Restoration Affiliation | Unknown | + + + | Race | White | + + + | Ethnic Group | Not or | + + + Author + + + | Author | [facility] | + + + | Organization | [facility] | + + + | Address | Unknown | + + + | Phone | Unavailable | + + + Support + + +---------+ + | Name | Relationship | Address | Phone | + + +---------+ + | Arnoldo Mata | ECON | Unknown | | + + +---------+ + Care Team Providers + +------+ + | Care Front Office Manager Name | Role | Phone | + +------+ + | Robert Velazquez DO | PCP | | + +------+ + Encounter Details +--------+ + + + + | Date | Type | Department | Care Team | Description | +--------+ + + + + | 01/08/ | MyChart | Dermatology | Keara Kraus, | RE: Condition in | | 2018 | Encounter | Medical at [facility] | MD [address] | Remission | | | | Floor [address] | [place], [place] | | | | | [place] Mailcode: [id number] | [address] | | | | | [facility] | [phone] | | | | | and Healing, | | | | | | | | | | | | Floor [facility] [place] | | | | | | [address] | | | | | | [phone] | | | +--------+ + + + + Social History + +-------+ +--------+------+ | Tobacco Use | Types | Packs/Day | Years | Date | | | | | Used | | + +-------+ +--------+------+ | Never Smoker | | | | | + +-------+ +--------+------+ + +---+---+---+ | Smokeless Tobacco: | | | | | Never Used | | | | + +---+---+---+ + + +---------+ + | Alcohol Use | Drinks/Week | oz/Week | Comments | + + +---------+ + | No | 0 Standard drinks | 0.0 | | | | or equivalent | | | + + +---------+ + + + + | Sex Assigned at | Date Recorded | | | | + + + | Not on file | | + + + + + + + | Job Start Date | Occupation | Industry | + + + + | Not on file | Not on file | Not on file | + + + + + + + + | Travel History | Travel Start | Travel End | + + + + + + | No recent travel history available. | + + documented as of this encounter Plan of Treatment +--------+---------+ + + + | Date | Type | Specialty | Care Team | Description | +--------+---------+ + + + | 01/27/ | Office | Dermatology | Keara Kraus, | | | 2018 | Visit | | MD [address] | | | | | | [place], [place] | | | | | | [address] | | | | | | [phone] | | | | | | | | +--------+---------+ + + + documented as of this encounter Visit Diagnoses Not on filedocumented in this encounter"
--- OUTSIDE RECORDS SUMMARY | ~2019-01-09 | XMS | Encounter Summary ---
Demographics + + + | Address | [address] | | | [place] [address] | + + + | Home Phone | | + + + | Preferred Language | Unknown | + + + | Marital Status | | + + + | Anabaptist Affiliation | Unknown | + + + | Race | White | + + + | Ethnic Group | Not or | + + + Author + + + | Author | [facility] | + + + | Organization | [facility] | + + + | Address | Unknown | + + + | Phone | Unavailable | + + + Support + + +---------+ + | Name | Relationship | Address | Phone | + + +---------+ + | Arnoldo Mata | ECON | Unknown | | + + +---------+ + Care Team Providers + +------+ + | Care Liquefied Natural Gas Plant Operator Name | Role | Phone | + +------+ + | Robert Velazquez DO | PCP | | + +------+ + Encounter Details +--------+ + + + + | Date | Type | Department | Care Team | Description | +--------+ + + + + | 07/19/ | MyChart | Dermatology | Keara Kraus, | RE: Bad Break Out - | | 2018 | Encounter | Medical at [facility] | MD [address] | Advice please! | | | | Floor [address] | [place], [place] | | | | | Ave Mailcode: CH16D | [address] | | | | | [facility] | [phone] | | | | | and Healing, | | | | | | | | | | | | Floor [place], [place] | | | | | | [address] | | | | | | [phone] | | | +--------+ + + + [...] | | 2018 | Visit | | [address] | | | | | | [place], [place] | | | | | | [address] | | | | | | [phone] | | | | | | | | +--------+---------+ + + + documented as of this encounter Visit Diagnoses Not on filedocumented in this encounter"
--- OUTSIDE RECORDS SUMMARY | ~2019-01-09 | XMS | Encounter Summary ---
Demographics + + + | Address | [address] | | | [place] [address] | + + + | Home Phone | | + + + | Preferred Language | Unknown | + + + | Marital Status | | + + + | Amish Affiliation | Unknown | + + + | Race | White | + + + | Ethnic Group | Not or | + + + Author + + + | Author | [facility] | + + + | Organization | [facility] | + + + | Address | Unknown | + + + | Phone | Unavailable | + + + Support + + +---------+ + | Name | Relationship | Address | Phone | + + +---------+ + | Arnoldo Mata | ECON | Unknown | | + + +---------+ + Care Team Providers + +------+ + | Care Travel Clerk Name | Role | Phone | + +------+ + | Robert Velazquez DO | PCP | | + +------+ + Reason for Visit +--------+ + | Reason | Comments | +--------+ + | Biopsy | | +--------+ + Other (Routine) +--------+--------+ + + + + | Status | Reason | Specialty | Diagnoses / | Referred By | Referred To | | | | | Procedures | Contact | Contact | +--------+--------+ + + + + | Closed | | Obstetrics & | Diagnoses | [facility] | [facility] | | | | Gynecology | Vulvar | Romario Fulton MD | Generalists | | | | | itching | [place] | [address] | | | | | Lichen | Womens | [address] | | | | | sclerosus et | Clinic [address] | | | | | atrophicus | [address] | [address] | | | | | | [address] | Pavilion | | | | | | [address] | [place], [place] | | | | | | [place], [place] | [address] | | | | | | [address] | Phone: | | | | | | Phone: | [phone] | | | | | | [phone] | Fax: | | | | | | Fax: | [phone] | | | | | | [phone] | | +--------+--------+ + + + + Encounter Details +--------+---------+ + + + | Date | Type | Department | Care Team | Description | +--------+---------+ + + + | 12/24/ | Office | [facility] | Aleks[place], | Vulvar dystrophy | | 2015 | Visit | [facility] | [address] | (Primary Dx); | | | | [address] | Priyanka | | | | [address] | Rd [place], [place] | disease | | | | [facility] | [address] | | | | | [place], [place] | [phone] | | | | | [address] | | | | | | [phone] | | | +--------+---------+ + + + Social History + +-------+ +--------+------+ | Tobacco Use | Types | Packs/Day | Years | Date | | | | | Used | | + +-------+ +--------+------+ | Never Smoker | | | | | + +-------+ +--------+------+ + + +---------+ + | Alcohol Use [...] + + documented as of this encounter Last Filed Vital Signs + + + + + | Vital Sign | Reading | Time Taken | Comments | + + + + + | Blood Pressure | 102/62 | 12/24/2014 8:27 AM | | | | | PDT | | + + + + + | Pulse | 80 | 12/24/2014 8:27 AM | | | [...] + + + + | Weight | 96.2 kg (212 lb 1.6 | 12/24/2014 8:27 AM | | | | oz) | PDT | | + + + + + | Height | 162.6 cm (5' 4") | 12/24/2014 8:27 AM | | | | | PDT | | + + + + + | Body Mass Index | 36.41 | 12/24/2014 8:27 AM | | | | | PDT | | + + + + + documented in this encounter Patient Instructions Patient Instructions Emerald Armijo MD - 12/24/2014 9:03 AM PDTInstructions following a Vulvar Biopsy 1. Some women will notice that their biopsy site will feel irritated. This may be up to a w [place]. If you are experiencing pain or irritation, you can take Ibuprofen (Advil or Motrin) o r acetaminophen (Tylenol). A cold pack against the biopsy site can also soothe these sympto ms. 2. You may have a small amount of bleeding from the site for the first 2-3 days after the b iopsy 3. You may have some clear yellow discharge from the site as it heals. It's rare for these small biopsies to become infected. 4. If a chemical cautery stick was used to seal bleeding, you may notice some amezquita or black flecks in your underwear. 5. If a stitch was used to close your biopsy site, then you may find that the suture will s often over the next week. Usually the suture falls out on its own after 1-2 weeks. If you wo uld like it removed, please give the office a call. Usually one of our RNs can do this in a short, abridged visit. 5. You do not need to care for your biopsy site in any special way. Meaning, you do not nee d to add Neosporin or antibiotic ointments. You do not need to do extra cleaning or hygiene. The skin of the vulva heals very nicely. 6. Your biopsy results will be available in the next 1-2 weeks. These will be phoned to you . documented in this encounter Progress Notes Emerald Armijo MD - 12/23/2014 8:25 AM PDT VULVAR INTERVAL EXAM Dorothy "Irene" Radha Mata is a 24 y.o. female T1 P0 SAB0 TAB0 L1 Mult0 Ect0 who pr esents today with for another office vulvar biopsy. Irene is currently (first trim joann). 1. 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 Notes that biopsy site from 2 wks ago is doing fine. Her first biopsy with Dr. Lim was also suspicious for Grace but since it's such a rare disease, wa s unsure of the dx. . 2. Social: arrived, 2yo daughter named Keiry; Delivered last child in [place]. 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 Does VOICE GOAL: Sex less painful; sx control for the itch. Romario Lim MD [facility] [address] [place] [address] Past Medical History Diagnosis Date Lichen sclerosus Fibromyalgia Psoriasis Past Surgical History Procedure Laterality Date section 01/10/13 Tonsillectomy 09/2010 Family History Problem Relation Thyroid Mother Depression Mother Arthritis Father Asthma sibling Thyroid sibling No LMP recorded. Patient is . PAST [employer] WORK[employer] Menarche: 12yo Menses: currently ! Sexual Activity: Patient is sexually active with a male partner. Contraception: nothing. Sexually Transmitted Infections: No history. Obstetric History: deliveries: 1. Current Outpatient Prescriptions Medication Sig DESONIDE TOP Apply to affected area. Vit27&Bdespcc-Owbz-TQ 60 mg iron-1 mg oral tablet Take by mouth. No current facility-administered medications for this visit. ALLERGIES: Oxycodone SOCIAL HISTORY AND HABITS: Patient is and lives with partner and children. Occupation is student. She is a n onsmoker. REVIEW OF SYSTEMS: Abdominal or pelvic pain: no Constipation / diarrhea / blood in stool: no Heartburn / trouble swallowing: no Urine leakage: no Vaginal / vulvar itching, irritation, discharge: yes, see HPI Breast lumps / nipple discharge: no Chest pain: no Shortness of breath: no Pain with sexual intercourse: see HPI Visual / hearing problems: no Weight loss, fever, chills sweats: no Headaches- migraine or tension: no Numbness / tingling / weakness of extremities: no Joint / muscle pain: no Depression, anxiety, irritability, trouble sleeping: no Hot flashes / vaginal dryness: see HPI Other concerns: see HPI GENERAL PHYSICAL EXAM: General: This is a well appearing, white female in no apparent distress. Skin: Warm, dry and no rashes or lesions. Lungs: Breathing comfortably Abdomen: Soft. Non-tender. No mass. No hepatosplenomegaly. Musculoskeletal: Normal. Extremities: No edema. No inguinal lymphadenopathy. Neurological: Normal VULVAR PHYSICAL EXAM: signs of acanthosis; abnl vulva Labis Majora: spotted multiple areas of white plaque throughout labia majora but mostly pos teriorly coalescing onto the perineum and soniya anal skin; Some areas of excoriation and pun ctation. Soft somewhat velvety look to it?. Labia Minora: normal. Clitoral Slade: normal and retractable. Clitoris: normal. Vestibule: NT pink, normal caliber. Urethra: normal. Hymen: multiparous. Posterior Fourchette: normal. Perineum: hypopigmented and plaque, white, multiple sites, nearly confluent. Perianal:hypopigmented and plaque, white, multiple sites, nearly confluent. Vagina: normal and well estrogenized. PROCEDURE: Location: R labia Site cleansed with water. Injected 1-2 ml 1% Lidocaine with Epinephrine. 6 mm punch biopsy. Single suture placed with 4-0 suture, 2 interrupted sutures. Biopsy lifted and excised. Biopsy specimen sent to Chapin Mitchell M.D., Dermatopathologist. Assessment: 24yo with vulvar skin changes Plan: per biopsy No treatment for now until results are back This visit was solely for the biopsy-(immunoflourescence) Emerald Armijo MD Director, Program in [facility] documented in this encounter Plan of Treatment +--------+---------+ + + + | Date | Type | Specialty | Care Team | Description | +--------+---------+ + + + | 01/27/ | Office | Dermatology | Keara Kraus, | | | 2018 | Visit | | [address] | | | | | | [place], [place] | | | | | | [address] | | | | | | [phone] | | | | | | | | +--------+---------+ + + + + +------+--------+ + + | Name | Type | Priori | Associated Diagnoses | Order Schedule | | | | ty | | | + +------+--------+ + + | IMMUNOFLUORESCENCE | Lab | Routin | Vulvar dystrophy | Ordered: 12/24/2014 | | STUDY | | royal | Priyanka | | | | | | disease | | + +------+--------+ + + | PATHOLOGY CONSULT - | Lab | Routin | Vulvar dystrophy | Ordered: 12/24/2014 | | REVIEW OUTSIDE | | e | Priyanka | | | SLIDES | | | disease | | + +------+--------+ + + documented as of this encounter Procedures + +--------+ + + + | Procedure Name | Priori | Date/Time | Associated Diagnosis | Comments | | | ty | | | | + +--------+ + + + | IMMUNOFLUORESCENCE | Routin | 12/24/2014 | | Results for this | | STUDY | e | | | procedure are in the | | | | | | results section. | + +--------+ + + + | [place] BIOPSY | Routin | 12/23/2014 | Vulvar dystrophy | | | VULVA/PERINEUM,ONE | e | 8:32 AM | | | | LESN | | PDT | | | + +--------+ + + + documented in this encounter Results IMMUNOFLUORESCENCE STUDY (12/24/2014) + + + + + + | Component | Value | Ref Range | Performed | Pathologist | | | | | At | Signature | + + + + + + | IMMUNOFLUOR | SOURCE OF SPECIMEN:A Rt. | | [facility] | | | ESCENCE | labia, punch biopsy DIF | | DERMATOPATH | | | STUDY | CLINICAL | | OLOGY | | | | INFORMATION:On December | | | | | | 2014, a biopsy was | | | | | | taken from the right | | | | | | labia for | | | | | | directimmunofluorescence | | | | | | studies from a patient | | | | | | with Grace-Grace | | | | | | disease. TISSUE | | | | | | PROCESSING:On December 24 | | | | | | 2014, a 5 x 3mm arevalo | | | | | | cylinder of tissue was | | | | | | received in | | | | | | directimmunofluorescence | | | | | | holding solution. | | | | | | After washing, the | | | | | | tissue was frozenin OCT, | | | | | | and cryosectioned onto | | | | | | five separate slides. | | | | | | The sections werethen | | | | | | stained with fluorescein | | | | | | isothiocyanate | | | | | | conjugated anti-human | | | | | | IgG,IgA, IgM, C3, and | | | | | | fibrinogen, | | | | | | respectively. | | | | | | FINDINGS:There is no | | | | | | specific deposition of | | | | | | IgG, IgA, IgM, C3, or | | | | | | fibrinogenidentified in | | | | | | these sections. | | | | | | Particularly, there is | | | | | | no deposition | | | | | | ofimmunoreactants | | | | | | identified in the | | | | | | intercellular spaces of | | | | | | the epithelium. | | | | | | COMMENTS/DIAGNOSIS:There | | | | | | are no diagnostic | | | | | | immunopathologic changes | | | | | | identified in | | | | | | thesesections. | | | | | | Particularly, there is | | | | | | no support for an | | | | | | immunologicallymediated | | | | | | form of pemphigus such | | | | | | as pemphigus vulgaris or | | | | | | pemphigusfoliaceus. | | | | | | Patient's with | | | | | | Grace-Rgace disease | | | | | | typically have a | | | | | | negativedirect | | | | | | immunofluorescent test. | | | | | | Correlation with | | | | | | routine histology would | | | | | | beof value in arriving | | | | | | at a final diagnosis. | | | | | | Testing was | | | | | | performed with an | | | | | | appropriate positive and | | | | | | negative control | | | | | | foreach | | | | | | immunoreactant.[id number] | | | | | | / My | | | | | | electronic signature | | | | | | indicates that I have | | | | | | personally reviewed | | | | | | alldiagnostic slides, | | | | | | the gross and/or | | | | | | microscopic portion of | | | | | | thisreport and | | | | | | formulated the final | | | | | | diagnosis. 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
--- OUTSIDE RECORDS SUMMARY | ~2019-01-09 | XMS | Encounter Summary ---
Demographics + + + | Address | [address] | | | [place] [address] | + + + | Home Phone | | + + + | Preferred Language | Unknown | + + + | Marital Status | | + + + | Voodoo Affiliation | Unknown | + + + | Race | White | + + + | Ethnic Group | Not or | + + + Author + + + | Author | [facility] | + + + | Organization | [facility] | + + + | Address | Unknown | + + + | Phone | Unavailable | + + + Support + + +---------+ + | Name | Relationship | Address | Phone | + + +---------+ + | Arnoldo Mata | ECON | Unknown | | + + +---------+ + Care Team Providers + +------+ + | Care Tie Knitter Helper Name | Role | Phone | + +------+ + | Robert Velazquez DO | PCP | | + +------+ + Reason for Visit + + + | Reason | Comments | + + + | Follow-up visit | | + + + Other (Routine) +--------+--------+ + + + + | Status | Reason | Specialty | Diagnoses / | Referred By | Referred To | | | | | Procedures | Contact | Contact | +--------+--------+ + + + + | Closed | | Obstetrics & | Diagnoses | Raphael | Dottie | | | | Gynecology | Vulvar | Romario Fulton MD | Generalists | | | | | itching | Sandy | [address] | | | | | Lichen | Womens | [address] | | | | | sclerosus et | [facility] | [address] | | | | | atrophicus | [address] | [address] | | | | | | [address] | Pavilion | | | | | | [address] | [place], [place] | | | | | | [place], [place] | [address] | | | | | | [address] | Phone: | | | | | | Phone: | [phone] | | | | | | [phone] | Fax: | | | | | | Fax: | [phone] | | | | | | [phone] | | +--------+--------+ + + + + Encounter Details +--------+---------+ + + + | Date | Type | Department | Care Team | Description | +--------+---------+ + + + | 12/28/ | Office | [facility] | Aleksander, | Acantholytic | | 2016 | Visit | [facility] | MD [address] | vesicular dermatitis | | | | [address] | of the genitals | | | | [address] | Rd [place], [place] | (Primary Dx); | | | | [facility] | [address] | Sujit-sujit | | | | [facility] [place] | [phone] | disease; Encounter | | | | [address] | | for other | | | | [phone] | | contraceptive | | | | | | management | +--------+---------+ + + + Social History [...] + + + | Blood Pressure | 118/68 | 12/29/2015 9:44 AM | | | | | PDT | | + + + + + | Pulse | - | - | | + [...] + + + + | Height | - | - | | + + + + + | Body Mass Index | 36.56 | 12/24/2014 8:27 AM | | | | | PDT | | + + + + + documented in this encounter Patient Instructions Patient Instructions Emerald Armijo MD - 12/29/2015 10:15 AM PDTI would like you to st art using Tacrolimus, this is a new medication that is an immune system modulator that may s uppress your skin disease. It does not work the same way as a steroid. Initially apply to t he skin every other day once a day with VASELINE mixed in. After about 1-2 weeks, continue with EVERY OTHER DAY application but do not use the VASELINE It can sometimes be stingy with first application. You can dilute it with some plain VASEL INE initially if that is problematic. Eventually, I would like you to use it w/o any VASELIN E. [facility] [place] can [facility] for you. Consider the MIRENA or the COPPER IUD . Please communicate with me in three months to tell me how you are doing. Electronically si gned by Emerald Armijo MD at 12/29/2015 10:19 AM PDT documented in this encounter Progress Notes Emerald Armijo MD - 12/28/2015 4:45 PM PDT VULVAR INTERVAL EXAM Dorothy "Irene" Radha Mata is a 25 y.o. 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 She was last visit and thus limited ability to treat. 1. 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 Likely Sujit Edwards from the biopsies below. Last visit, her treatment course was to use steroids. Today, she states her skin improved with and then it worsened again after delivery. Had a major desquamation in Apr with a concomitant yeast infection. In August, noticed that itching was back. Gets more painful with intercourse. The usual spot s around anus and in the groin. Tried Nuva Ring in the past and an OCP 2. Social: 2yo daughter named Keiry; New daughter is 5 months old named Rashawn (Kasey estrada); Delivered last child in [place]. 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 [place] like this was great fit--both voice and band. Uses condoms for bi rth control. 3. Menses: irregular right now. 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 NOTE: These combined features make it challenging to differentiate between dermatoses, where this degree of dyskeratosis is more consistent with DARIER'S DISEASE, and the broad acantholytic vesicle is consistent with SUJIT-SUJIT DISEASE. Both of these conditions can have overlapping histologic features, and clinical features may help in arriving at a more specific diagnosis. The differential diagnosis includes PAPULAR ACANTHOLYTIC DERMATOSIS OF THE GENITOCRURAL / PERINEAL REGION, and although this diagnosis' relation to the previously mentioned entities is not entirely clear, it may represent a variant or segmental/localized form. PEMPHIGUS uncommonly demonstrates this pattern and is not favored, although correlation with immunofluorescence studies is recommended. Materials Returned:[id number] x 5 slides My electronic signature indicates that I have personally reviewed all diagnostic slides, the gross and/or microscopic portion of this report and formulated the final diagnosis. Rendering Diagnostician: Jennifer Adams MD Pathologist IMMUNO-FLOURESCENCE FINDINGS: There is no specific deposition of IgG, IgA, IgM, C3, or fibrinogen identified in these sections. Particularly, there is no deposition of immunoreactants identified in the intercellular spaces of the epithelium. COMMENTS/DIAGNOSIS: There are no diagnostic immunopathologic changes identified in these sections. Particularly, there is no support for an immunologically mediated form of pemphigus such as pemphigus vulgaris or pemphigus foliaceus. Patient's with Sujit-Sujit disease typically have a negative direct immunofluorescent test. Correlation with routine histology would be of value in arriving at a final diagnosis. Testing was performed with an appropriate positive and negative control for each immunoreactant. MALIKA:sandee 12/29/14 VULVAR BIOPSY November 2014 DIAGNOSIS: INTRAEPIDERMAL VESICULAR DERMATITIS WITH ACANTHOLYSIS. NOTE: Despite the clinical history, the presence of an intraepidermal vesicle and acantholysis throughout much of the spinous layer is suggestive of SUJIT-SUJIT DISEASE. On occasion, DARIER'S DISEASE, as well as PEMPHIGUS VULGARIS can show similar histologic changes, although both of these are less likely. If clinical ambiguity remains, correlation with immunofluorescence studies and other clinical findings may be helpful. There is no evidence of lichen sclerosus et atrophicus. KPW:mm 12/10/14 My electronic signature indicates that I have personally reviewed all diagnostic slides, the gross and/or microscopic portion of this report and formulated the final diagnosis. Rendering Diagnostician: Jose A Lim MD [facility] [address] [place] [address] Past Medical History Diagnosis Date Lichen sclerosus Fibromyalgia Psoriasis Past Surgical History Procedure Laterality Date section 01/10/13 Tonsillectomy 09/2010 Family History Problem Relation Thyroid Mother Depression Mother Arthritis Father Asthma sibling Thyroid sibling No LMP recorded. 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 Sexual Activity: Patient is sexually active with a male partner. Contraception: nothing. Sexually Transmitted Infections: No history. Obstetric History: deliveries: 1. Current Outpatient Prescriptions Medication Sig DESONIDE TOP Apply to affected area. lidocaine 5 % topical ointment apply to vulva as needed for pain [id number] 60 mg iron-1 mg oral tablet Take by mouth. No current facility-administered medications for this visit. ALLERGIES: Oxycodone SOCIAL HISTORY AND HABITS: Patient is and lives with partner and children (s). 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 She is a nonsmoker. REVIEW OF SYSTEMS: Abdominal or pelvic pain: [...] onto the perineum and soniya anal skin; Labia Minora: normal. Clitoral Slade: normal and retractable. Clitoris: normal. Vestibule: NT pink, normal caliber. Urethra: normal. Hymen: multiparous. Posterior Fourchette: normal. Perineum: hypopigmented and plaque, white, multiple sites, nearly confluent. Perianal:hypopigmented and plaque, white, multiple sites, nearly confluent. Vagina: normal and well estrogenized. Wet mount MAGUE slide: no hyphae/spores Wet mount Saline slide: pH=4.5 , no wbc, nl squamous cells, no parabasal cells, no clue rohit ls, no trichomonads, nl background of normal bacteria Assessment: 25yo with vulvar skin changes and biopsies suggestive of Papular Acant holytic Dermatosis of the Genitocrural / Perineal Region. versus Sujit Edwards or Kianna's D isease but less likely since these are both genetically based dermatosis that affect other r egions of the body which is not reported in this case. Now that she is post , will try Tacrolimus If this is ineffective in controlling some of her sx, will have her do a consult with Keara Kraus MD here in Inflammatory Disease MYCHART communication 2. Contraception: needs LARC but afraid of hormonal influence. Discussed at length IUD whic h she is amenable to do locally in [place] Plan: RX TAcroliumus 0.1 % ointment EVERY OTHER DAY to the vulva Recommend BEND PP for IUD placement What is known? Papular acantholytic dermatosis of the anogenital/genitocrural area is a type of focal acan tholytic dermatosis. As the name suggests, there is usually an asymptomatic papular eruption , which is localized to the genitalia, perineal region sometimes extending to the groin or t he upper thighs. It is more common on and around vulva and there are very few case reports o f men. Histologicaly, this can show signs of both Sujit Sujit disease as well as Darier's disease. It is chronic in nature and is known to run a protracted course. Papular acantholytic dermatosis (PAD) of the anogenital area is an uncommon entity and is c onsidered a variant of focal acantholytic dermatosis originally described by Mack in 197 2. It can mimic Sujit Sujit disease, Darier's disease, and [place]'s disease histologically , but it is differentiated from these entities clinicopathologically. Molecular genetic stud ies where feasible and possible have also demonstrated abnormal mutations in ATP2C1 gene in some cases. This entity because of its anogenital location should be considered as one of th e non-venereal genital lesions due to its clinical resemblance to genital warts and molluscu m contagiosum in the early stages. PAD may also be underreported and, therefore, more awaren ess regarding the entity is recommended among practicing dermatologists and pathologists. Emerald Armijo MD Director, Program in [facility] [place] documented in this encounter Plan of Treatment +--------+---------+ + + + | Date | Type | Specialty | Care Team | Description | +--------+---------+ + + + | 01/27/ | Office | Dermatology | Keara Kraus, | | | 2019 | Visit | | [address] | | | | | | [place], [place] | | | | | | [address] | | | | | | [phone] | | | | | | | | +--------+---------+ + + + documented as of this encounter Visit Diagnoses + + | Diagnosis | + + | Acantholytic vesicular dermatitis of the genitals - Primary Contact dermatitis and | | other eczema, due to unspecified cause | + + | 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
--- OUTSIDE RECORDS SUMMARY | ~2019-01-09 | XMS | Encounter Summary ---
Demographics + + + | Address | [address] | | | [place] [address] | + + + | Home Phone | | + + + | Preferred Language | Unknown | + + + | Marital Status | | + + + | Methodist Affiliation | Unknown | + + + | Race | White | + + + | Ethnic Group | Not or | + + + Author + + + | Author | [facility] | + + + | Organization | [facility] | + + + | Address | Unknown | + + + | Phone | Unavailable | + + + Support + + +---------+ + | Name | Relationship | Address | Phone | + + +---------+ + | Arnoldo Mata | ECON | Unknown | | + + +---------+ + Care Team Providers + +------+ + | Care Server Security Administrator Name | Role | Phone | + [...] | 2018 | Encounter | Medical at [facility] | MD [address] | Advice please! | | | | Floor [address] | [place], [place] | | | | | Ave Mailcode: [id number] | [address] | | | | | [facility] | [phone] | | | | | and Healing, | | | | | | | | | | | | Floor [place], [place] | | | | | | [address] | | | | | | [phone] | | | +--------+ + + + [...] | | 2018 | Visit | | [address] | | | | | | [place], [place] | | | | | | [address] | | | | | | [phone] | | | | | | | | +--------+---------+ + + + documented as of this encounter Visit Diagnoses Not on filedocumented in this encounter"
--- OUTSIDE RECORDS SUMMARY | ~2019-01-09 | XMS | Encounter Summary ---
Demographics + + + | Address | [address] | | | [place] [address] | + + + | Home Phone | | + + + | Preferred Language | Unknown | + + + | Marital Status | | + + + | Scientologist Affiliation | Unknown | + + + | Race | White | + + + | Ethnic Group | Not or | + + + Author + + + | Author | [facility] | + + + | Organization | [facility] | + + + | Address | Unknown | + + + | Phone | Unavailable | + + + Support + + +---------+ + | Name | Relationship | Address | Phone | + + +---------+ + | Arnoldo Mata | ECON | Unknown | | + + +---------+ + Care Team Providers + +------+ + | Care Stacker Attendant Name | Role | Phone | + +------+ + | Robert Velazquez DO | PCP | | + +------+ + Reason for Visit + + + | Reason | Comments | + + + | New patient | vulvar | | consultation | | + + + Other (Routine) +--------+--------+ + + + + | Status | Reason | Specialty | Diagnoses / | Referred By | Referred To | | | | | Procedures | Contact | Contact | +--------+--------+ + + + + | Closed | | Obstetrics & | Diagnoses | Raphael, | [facility] | | | | Gynecology | Vulvar | Romario Fulton MD | Generalists | | | | | itching | [facility] | [address] | | | | | Lichen | Womens | [address] | | | | | sclerosus et | [facility] | [address]ana Ann | | | | | atrophicus | [address] | [address] | | | | | | [address] | [address]ilion | | | | | | [address] | [place], [place] | | | | | | [place], [place] | [address] | | | | | | [address] | Phone: | | | | | | Phone: | [phone] | | | | | | [phone] | Fax: | | | | | | Fax: | [phone] | | | | | | [phone] | | +--------+--------+ + + + + Encounter Details +--------+---------+ + + + | Date | Type | Department | Care Team | Description | +--------+---------+ + + + | 12/09/ | Office | [facility] | [place], | Lichen sclerosus | | 2014 | Visit | [facility] | MD [address] | (Primary Dx); | | | | [address] | [address] | Hypopigmentation; | | | | [address] | Rd [place], [place] | Vulvar dystrophy | | | | [facility] | [address] | | | | | [place], [place] | [phone] | | | | | [address] | | | | | | [phone] | | | +--------+---------+ + + + [...] + + + | Blood Pressure | 102/72 | 12/09/2014 8:36 AM | | | | | PDT | | + + + + + | Pulse | 72 | 12/09/2014 8:36 AM | | | | | PDT [...] + + + + | Weight | 98.7 kg (217 lb 8 | 12/09/2014 8:36 AM | | | | oz) | PDT | | + + + + + | Height | 162.6 cm (5' 4") | 12/09/2014 8:36 AM | | | | | PDT | | + + + + + | Body Mass Index | 37.33 | 12/09/2014 8:36 AM | | | | | PDT | | + + + + + documented in this encounter Patient Instructions Patient Instructions Emerald Armijo MD - 12/09/2014 9:17 AM PDT1. I would like you to refrain from putting any CLOBETASOL or DESONIDE on your skin for now. 2. You can put VASELINE on your skin twice a day. This will help to soothe and palliate you r skin 3. If you feel particularly itchy, try some of the techniques listed on the worksheet 4. Your biopsy results will be back in about a week. 5. Please sign up for MYCHART Instructions following a Vulvar Biopsy 1. Some women will notice that their biopsy site will feel irritated. This may be up to a w [place]. If you are experiencing pain or irritation, [...] . documented in this encounter Progress Notes Veronica Villegas MA - 12/09/2014 8:40 AM PDTerr Emerald Diego MD - 12/08/2014 3:30 PM PDT VULVAR INITIAL EXAM Patient Self Reported Intake/Questionnaire: 1. My vulvar condition began when I was 24 years old. This was .5 years ago. 2. Based on a scale from 0 (no symptoms) to 10 (worst symptoms) rate your general level of vulvar discomfort VULVAR PAIN TODAY: 7.0 PAIN DURING/AFTER SEXUAL TOUCH: 9.0 3. In addition to the above, which describes your problem? Itching? Itch without discharge yes Itching with discharge no Pain/burning/rawness? yes Constantly? yes Only with specific touch? no Chronic abnormal Vaginal discharge? no Skin splits? yes Spontaneous splits? yes Splits just with intercourse? yes Have you noted any skin changes? yes Is the problem located in a specific area of your vulva? no Do symptoms come and go? no It feels better when a cream or salve is applied to my vulva yes I wear cotton underwear? yes I use mild soaps and detergents? yes Symptoms limit the time I can sit, do activities or do sports yes Dietary factors affect my pain? no I get bladder pain, urgency, frequency? no I cannot use tampons due to pain? no Speculums have always been painful? no My sister, mother, or daughter have my symptoms too? no I avoid intimate relationships due to pain? yes 4. I became sexually active at age 18. Number of lifetime sexual partners Less than 5 Are you currently having sexual intercourse? Yes My relationship with my partner has become strained ? yes I/we use artificial lubricants? Yes I experience pain at the vaginal opening during sex? Yes My sexual desire has diminished due to my symptoms? Yes My symptoms affect my ability to be orgasmic? No My pain began during my post period Yes I have been sexually abused? No I have undergone a biopsy of the vulva Yes, When: 07/2014, By Whom: Romario Lim, Results: inconclusive Medication Therapies I have tried:Creams, clobetasol It did help and Ointments, desonide I t did help Other therapies I have tried:Diet restrictions Approximately 5 minutes were spent reviewing and summarizing old records documenting the ev aluation and therapeutic trials for this patient's vulvar condition--BIOPSY was not initiall y included. Dorothy Mata (Cassie) is a 24 y.o. female T1 P0 SAB0 TAB0 L1 Mult0 Ect0 who pr esents today with Lichen sclerosus. She is referred by Romario Lim MD. 1. Lichen sclerosus: Has had the diagnosis since August 2014, made by biopsy and clinical ex am. Saw Dr. Rodrigues (DERM) and he felt like it was LS. She did her own investigation and t hought it was LS too. Initial sx was terrible itching. Was treated initially for yeast and for BV. Tried CLOBETASOL BID for 2 weeks then once a day and then off altogether. When th is didn't work, she was given Desonide by Dr. Rodrigues and was told to use the Desonide fore tonie. Stopped using the product a bout 2 weeks ago due to . The Desonide worked be tter than the CLOB but still not perfection. Sx: Still having itching, has some some mild cuts (feels like she has lots everywhere), fe els like the labia are shrinking and skin feels tight. Feels like the vaginal opening is sm aller and painful with intercourse. Sx around the anus is the most intense. Had some white spots but those have resolved with the use of the CLOB. Sex has been painful in the last y ear. Got better since going off the NuvaRing. 2. Social: arrived, 2yo daughter named Keiry; Delivered last child in [place]. 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 Does VOICE GOAL: Sex less painful; sx control for the itch. Romario Lim MD [facility] [address] [place] [address] Past Medical History Diagnosis Date Lichen sclerosus Fibromyalgia Psoriasis Past Surgical History Procedure Laterality Date section 10/25/13 Tonsillectomy 09/2010 Family History Problem Relation Thyroid Mother Depression Mother Arthritis Father Asthma sibling Thyroid sibling No LMP recorded. 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 Sexual Activity: Patient is sexually active with a male partner. Contraception: nothing. Sexually Transmitted Infections: No history. Obstetric History: deliveries: 1. Current Outpatient Prescriptions Medication Sig DESONIDE TOP Apply to affected area. Vit27&Onqbtkj-Pauw-VG 60 mg iron-1 mg oral tablet Take [...] nearly confluent. Vagina: normal and well estrogenized. Vulvar Culture: obtained for yeast Wet [place]: pH: 4.0, immature squamous 0+ cells , mature squamous cells, wbc 0+ and normal background of bacteria, no clue cells and no trich MAGUE: no hyphae PROCEDURE: Location: R vulva Site cleansed with saline Injected 1-2 ml 1% Lidocaine without Epinephrine. 3 mm punch biopsy. No suture closure necessary. Biopsy lifted and excised. Site touched with AgNO3. Biopsy specimen sent to Chapin Mitchell M.D., Dermatopathologist. Assessment: 24yo with vulvar skin changes DDX: Lichen sclerosus, TAVO, yeast vulvitis, LSC Plan: per biopsy No treatment for now until results are back Patient will return to clinic in 8 weeks . Vulvar education worksheets were distributed to the patient AVS and Itching. Letter was sent to referring doctor: yes. I spent 60 minutes with this patient, in which greater than 50% was spent counseling this p atient regarding the evaluation, management and therapeutic options for her vulvar condition . This was over and above the time spent in counseling. Procedure was separate Emerald Armijo MD Director, Program in [facility] documented in this encounter Plan of Treatment +--------+---------+ + + + | Date | Type | Specialty | Care Team | Description | +--------+---------+ + + + | 01/27/ | Office | Dermatology | Keara Kraus, | | | 2019 | Visit | | [address] | | | | | | [place], [place] | | | | | | [address] | | | | | | [phone] | | | | | | | | +--------+---------+ + + + + + +--------+ + + | Name | Type | Priori | Associated Diagnoses | Order Schedule | | | | ty | | | + + +--------+ + + | TANISHA VIEYRA | Lab - Point | Routin | Hypopigmentation | Ordered: 12/09/2014 | | | of Care | e | | | + + +--------+ + + | TANISHA MARINO | Lab - Point | Routin | Hypopigmentation | Ordered: 12/09/2014 | | | of Care | e | | | + + +--------+ + + documented as of this encounter Procedures + +--------+ + + + | Procedure Name | Priori | Date/Time | Associated Diagnosis | Comments | | | ty | | | | + +--------+ + + + | CULTURE, FUNGAL | Routin | 12/09/2014 | Vulvar dystrophy | Results for this | | EXCEPT BLOOD, SKIN, | e | 9:22 AM | | procedure are in the | | HAIR, NAIL | | PDT | | results section. | + +--------+ + + + | [place] BIOPSY | Routin | 12/09/2014 | Hypopigmentation | | | VULVA/PERINEUM,ONE | e | 9:17 AM | Vulvar dystrophy | | | LESN | | PDT | | | + +--------+ + + + | DERM PATHOLOGY | Routin | 12/09/2014 | Lichen sclerosus | Results for this | | | e | | | procedure are in the | | | | | | results section. | + +--------+ + + + documented in this encounter Results CULTURE, FUNGAL EXCEPT BLOOD, SKIN, HAIR, NAIL (12/09/2014 9:22 AM PDT) + + | Specimen | + + | Swab - Vagina | + + + + + | Narrative | Performed At | + + + | Culture Report: No fungus isolated at 1 week. | [facility] | [facility] [place] | + + + + + + + + | Performing | Address | City/State/Zipcode | Phone Number | | Organization | | | | + + + + + | [facility] | [address] | [place] [address] | | | [place] | | | | + + + + + DERM PATHOLOGY (12/09/2014) + + + + + + | Component | Value | Ref Range | Performed | Pathologist | | | | | At | Signature | + + + + + + | DERMATOPATH | SOURCE OF SPECIMEN:A | | [facility] | | | OLOGY(WET | Posterior labia majora, | | DERMATOPATH | | | MNT) | 4mm punch biopsy | | OLOGY | | | | CLINICAL | | | | | | DESCRIPTION:Posterior | | | | | | labia majora for white | | | | | | plaque. GROSS | | | | | | DESCRIPTION:Received in | | | | | | formalin is a specimen | | | | | | labeled Pinard, | | | | | | Dorothy:A: Specimen | | | | | | consists of a 4mm punch | | | | | | of arevalo-white skin, cut | | | | | | to a depth of2mm. The | | | | | | surgical margin is inked | | | | | | black; the tissue is | | | | | | bisected; andentirely | | | | | | submitted in cassette | | | | | | A1. MICROSCOPIC | | | | | | DESCRIPTION:There is | | | | | | hyperkeratosis overlying | | | | | | an intraepidermal | | | | | | vesicle, in some | | | | | | areasextending from | | | | | | suprabasalar fashion to | | | | | | the mid and upper | | | | | | spinous layers.There are | | | | | | scattered dyskeratotic | | | | | | keratinocytes extending | | | | | | to the upperspinous and | | | | | | granular layers. There | | | | | | is a sparse underlying | | | | | | lymphocyticinfiltrate. 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 | | | | | | NOTE: Despite the | | | | | | clinical history, the | | | | | | presence of an | | | | | | intraepidermalvesicle | | | | | | and acantholysis | | | | | | throughout much of the | | | | | | spinous layer | | | | | | issuggestive of | | | | | | SUJIT-SUJIT DISEASE. | | | | | | On occasion, DARIER'S | | | | | | DISEASE, as wellas | | | | | | PEMPHIGUS VULGARIS can | | | | | | show similar histologic | | | | | | changes, although both | | | | | | ofthese are less likely. | | | | | | If clinical ambiguity | | | | | | remains, correlation | | | | | | withimmunofluorescence | | | | | | studies and other | | | | | | clinical findings may be | | | | | | helpful.There is no | | | | | | evidence of lichen | | | | | | sclerosus et atrophicus. | | | | | | KPW:mm12/10/14 | | | | | | My electronic | | | | | | signature indicates that | | | | | | I have personally | | | | | | reviewed alldiagnostic | | | | | | slides, the gross and/or | | | | | | microscopic portion of | | | | | | thisreport and | | | | | | formulated the final | | | | | | diagnosis. | | | | | | Rendering Diagnostician: | | | | | | Jose A Mitchell | | | | | | Juan MPathologistCynthiai | | | | | | cony Signed 12/11/2014 | | | | | | 11:54AM | | | | + + + + + + + + | Specimen | + + | Biopsy | + + + + + + + | Performing | Address | City/State/Zipcode | Phone Number | | Organization | | | | + + + + + | [facility] | [id number], [address] | [place] [address] | | | DERMATOPATHOLOGY | [address] | | | + + + + + documented in this encounter Visit Diagnoses + + | Diagnosis | + + | Lichen sclerosus - Primary Circumscribed scleroderma | + + | Hypopigmentation Dyschromia, unspecified | + + | Vulvar dystrophy Other dystrophy of vulva | + + documented in this encounter
--- OUTSIDE RECORDS SUMMARY | ~2019-01-09 | XMS | Encounter Summary ---
Demographics + + + | Address | [address] | | | [place] [address] | + + + | Home Phone | | + + + | Preferred Language | Unknown | + + + | Marital Status | | + + + | Advent Affiliation | Unknown | + + + | Race | White | + + + | Ethnic Group | Not or | + + + Author + + + | Author | [facility] | + + + | Organization | [facility] | + + + | Address | Unknown | + + + | Phone | Unavailable | + + + Support + + +---------+ + | Name | Relationship | Address | Phone | + + +---------+ + | Arnoldo Mata | ECON | Unknown | | + + +---------+ + Care Team Providers + +------+ + | Care Rooming House Operator Name | Role | Phone | + +------+ + | Robert Velazquez DO | PCP | | + +------+ + Reason for Visit + + + | Reason | Comments | + + + | Examination Of Skin | | + + + Consultation (Routine) +--------+ + + + + + | Status | Reason | Specialty | Diagnoses / | Referred By | Referred To | | | | | Procedures | Contact | Contact | +--------+ + + + + + | Closed | Specialty | Dermatology | Diagnoses | [facility] | [facility] | | | Services | | | [place], | [address] | | | Required | | Acantholytic | MD [address] | | | | | vesicular | [address] | Mailcode: | | | | | dermatitis | Gregory Ann | [address] [place] | | | | | Monika | [place], [place] | for Health | | | | | y disease | [address] | and Healing, | | | | | Procedures | Phone: | Building 1, | | | | | CONSULT TO | [phone] | 16th Floor | | | | | DERM & DERM | Fax: | [place], [place] | | | | | SURGERY | [phone] | [address] | | | | | | | Phone: | | | | | | | [phone] | | | | | | | Fax: | | | | | | | [phone] | +--------+ + + + + + Encounter Details +--------+---------+ + + + | Date | Type | Department | Care Team | Description | +--------+---------+ + + + | 01/29/ | Office | Dermatology | Keara Kraus, | Acantholytic | | 2017 | Visit | Medical at [facility] | MD [address] | vesicular dermatitis | | | | Floor [address] | [place], [place] | of the genitals | | | | Ave Mailcode: [id number] | [id number] | (Primary Dx) | | | | [place] for [facility] | [phone] | | | | | and Healing, | | | | | | Building | | | | | | Floor [place], [place] | | | | | | [address] | | | | | | [phone] | | | +--------+---------+ + + + [...] this encounter Last Filed Vital Signs + +---------+ + + | Vital Sign | Reading | Time Taken | Comments | + +---------+ + + | Blood Pressure | 110/70 | 01/29/2017 10:10 AM | | | | | PST | | + +---------+ + + | Pulse | 82 | 01/29/2017 10:10 AM | | | | | PST | | + +---------+ + + | Temperature | - | - | | + +---------+ + + | Respiratory Rate | - | - | | + +---------+ + + | Oxygen Saturation | - | - | | + +---------+ + + | Inhaled Oxygen | - | - | | | Concentration | | | | + +---------+ + + | Weight | - | - | | + +---------+ + + | Height | - | - | | + +---------+ + + | Body Mass Index | - | - | | + +---------+ + + documented in this encounter Progress Notes Keara Kraus MD - 01/29/2017 10:00 AM PSTI personally interviewed and examined the jennifer ent and discussed the plan with the resident and patient. I have reviewed and edited the re sident note as appropriate to reflect my findings and assessment and agree with the document ation. Keara Kraus M.D. Oracle Applications Analyst of Dermatology. Blaine Block MD - 01/29/2017 10:00 AM PSTDERMATOLOGY FOLLOW-UP VISIT Last Appointment in [facility] was on 01/08/17 at 3:40 pm with Keara Kraus MD. 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 She was last seen 3 weeks ago and started on doxy 100mg BID and S ilvadene. She states that since then she has not had any flare ups and feels like her condit ion has improved but still continues to have itching and discomfort. She is interested in pu rsuing treatment with naltrexone, she has been doing some online research and since it may a lso treat the fibromyalgia she is willing to try it. ROS: Other than those stated above, the patient denies any fevers, chills, night sweats, w eight loss, loss of appetite or other skin complaints. OBJECTIVE: BP 110/70 | Pulse 82 WDWN, NAD; awake, alert and oriented; pleasant with appropriate mood and affect A examination was performed of the face, eyelids, ears, lips, neck, arms, lower abdomen, le gs and external genitalia. Findings were within normal limits except for the following: Scattered, skin-colored, and whitish, slightly keratotic papules, and rare superficial eros ions located on the inner aspect of the labia majora of the vulva extending posteriorly and involving the perineal and perianal skin. ASSESSMENT/PLAN: Dorothy Mata is a 26 y.o. 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 Since her last visi t she was started on silver sulfadiazine and doxy 100mg BID and has definitely improved. Sin ce then she states that she has not flared and feels better but still has itchiness and disc omfort. Will continue to approach as treatment for [place] Edwards -- Silver sulfadiazine cream BID-TID to the lesions -- Doxy 100mg BID -- Start low dose naltrexone 4.5mg daily -- baseline CMP ordered today and external order provided for a 1 month lab f/u -- Other treatments could include acitretin (if she no longer desires children) and or MTX, topical retinoids RTC: 3 months or earlier NATANAEL Lo MD Resident, Department of Dermatology [facility] Pager [phone] documented in this en counter Plan of Treatment +--------+---------+ + + + | Date | Type | Specialty | Care Team | Description | +--------+---------+ + + + | 01/27/ | Office | Dermatology | Keara Kraus, | | | 2018 | Visit | | [address] | | | | | | [place], [place] | | | | | | [address] | | | | | | [phone] | | | | | | | | +--------+---------+ + + + documented as of this encounter Results COMPLETE METABOLIC SET (NA,K,CL,CO2,BUN,CREAT,GLUC,CA,AST,ALT,BILI TOTAL,ALK PHOS,ALB,PROT TOTAL) (01/29/2017 11:13 AM PST) + +---------+ + + + | Component | Value | Ref Range | Performed | Pathologist | | | | | At | Signature | + +---------+ + + + | GLUCOSE, | 85 | 70 - 99 mg/dL | [facility] | | | PLASMA | | | LABORATORY | | | (LAB) | | | SERVICES, | | | | | | CORE | | + +---------+ + + + | BUN, PLASMA | 11 | 6 - 20 mg/dL | [facility] | | | (LAB) | | | LABORATORY | | | | | | SERVICES, | | | | | | CORE | | + +---------+ + + + | CREATININE | 0.71 | 0.60 - 1.10 | [facility] | | | PLASMA | | mg/dL | LABORATORY | | | (LAB) | | | SERVICES, | | | | | | CORE | | + +---------+ + + + | EGFR | >60 | >60 mL/min | [facility] | | | - | | | LABORATORY | | | CAMEROONIAN | | | SERVICES, | | | | | | CORE | | + +---------+ + + + | EGFR NON | >60 | >60 mL/min | [facility] | | | -DICKSON | | | LABORATORY | | | RICAN | | | SERVICES, | | | | | | CORE | | + +---------+ + + + | SODIUM, | 140 | 136 - 145 | [facility] | | | PLASMA | | mmol/L | LABORATORY | | | (LAB) | | | SERVICES, | | | | | | CORE | | + +---------+ + + + | POTASSIUM, | 3.7 | 3.4 - 5.0 | [facility] | | | PLASMA | | mmol/L | LABORATORY | | | (LAB) | | | SERVICES, | | | | | | CORE | | + +---------+ + + + | CHLORIDE, | 109 (H) | 97 - 108 mmol/L | [facility] | | | PLASMA | | | LABORATORY | | | (LAB) | | | SERVICES, | | | | | | CORE | | + +---------+ + + + | TOTAL CO2, | 25 | 21 - 32 mmol/L | [facility] | | | PLASMA | | | LABORATORY | | | (LAB) | | | SERVICES, | | | | | | CORE | | + +---------+ + + + | CALCIUM, | 9.2 | 8.6 - 10.2 | [facility] | | | PLASMA | | mg/dL | LABORATORY | | | (LAB) | | | SERVICES, | | | | | | CORE | | + +---------+ + + + | CALCIUM(ALB | 9.5 | 8.6 - 10.2 | [facility] | | | CORRECTED) | | mg/dL | LABORATORY | | | | | | SERVICES, | | | | | | CORE | | + +---------+ + + + | BILIRUBIN | 0.3 | 0.3 - 1.2 mg/dL | [facility] | | | TOTAL | | | LABORATORY | | | | | | SERVICES, | | | | | | CORE | | + +---------+ + + + | TOTAL | 7.6 | 6.4 - 8.2 g/dL | [facility] | | | PROTEIN, | | | LABORATORY | | | PLASMA | | | SERVICES, | | | (LAB) | | | CORE | | + +---------+ + + + | ALBUMIN, | 3.6 | 3.5 - 4.7 g/dL | [facility] | | | PLASMA | | | LABORATORY | | | (LAB) | | | SERVICES, | | | | | | CORE | | + +---------+ + + + | ALK PHOS | 111 (H) | 42 - 98 U/L | [facility] | | | | | | LABORATORY | | | | | | SERVICES, | | | | | | CORE | | + +---------+ + + + | AST(SGOT) | 10 | <=41 U/L | [facility] | | | | | | LABORATORY | | | | | | SERVICES, | | | | | | CORE | | + +---------+ + + + | ALT (SGPT) | 24 | <=60 U/L | [facility] | | | | | | LABORATORY | | | | | | SERVICES, | | | | | | CORE | | + +---------+ + + + | ANION GAP | 6 | mmol/L | [facility] | | | | | | LABORATORY | | | | | | SERVICES, | | | | | | CORE | | + +---------+ + + + | ANION | 7 | 4 - 11 mmol/L | [facility] | | | GAP(ALB | | | LABORATORY | | | CORRECTED) | | | SERVICES, | | | | | | CORE | | + +---------+ + + + | POTASSIUM | No Hemo | | [facility] | | | CMNT | | | LABORATORY | | | | | | SERVICES, | | | | | | CORE | | + +---------+ + + + | BILI T CMNT | No Hemo | | [facility] | | | | | | LABORATORY | | | | | | SERVICES, | | | | | | CORE | | + +---------+ + + + | AST CMNT | No Hemo | | [facility] | | | | | | LABORATORY | | | | | | SERVICES, | | | | | | CORE | | + +---------+ + + + + + | Specimen | + + | Blood - Blood | | (substance) | + + + + + | Narrative | Performed At | + + + | Adult glucose reference range change effective 7-12-17. GFR is | [facility] | | estimated using the MDRD equation recommended by the National Kidney | LABORATORY | | Disease Education Program. Estimated GFR Interpretive Information: | SERVICES, CORE | | <60 mL/min/1.73 sq m Chronic Kidney Disease | | | <15 mL/min/1.73 sq m Kidney Failure Estimated | | | GFR greater that 60 mL/min/1.73 sq m is of limited clinical value. | | | The MDRD equation is not valid in the following situations: - | | | Patients under 18 years of age - Severe malnutrition or obesity - | | | Vegetarian diet - Rapidly changing kidney function | | + + + + + + + + | Performing | Address | City/State/Zipcode | Phone Number | | Organization | | | | + + + + + | [facility] | [address] | [place] [address] | | | SERVICES, CORE | [address] | | | + + + + + documented in this encounter Visit Diagnoses + + | Diagnosis | + + | 

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
--- OUTSIDE RECORDS SUMMARY | ~2019-01-09 | XMS | Encounter Summary ---
Demographics + + + | Address | [address] | | | [place] [address] | + + + | Home Phone | | + + + | Preferred Language | Unknown | + + + | Marital Status | | + + + | Islam Affiliation | Unknown | + + + | Race | White | + + + | Ethnic Group | Not or | + + + Author + + + | Author | [facility] | + + + | Organization | [facility] | + + + | Address | Unknown | + + + | Phone | Unavailable | + + + Support + + +---------+ + | Name | Relationship | Address | Phone | + + +---------+ + | Arnoldo Mata | ECON | Unknown | | + + +---------+ + Care Team Providers + +------+ + | Care Archery Equipment Hay Sorter Name | Role | Phone | + [...] | | 2017 | | Medical at [facility] 16 | [address] | | | | | Floor [address] | [place], [place] | | | | | [place] Mailcode: CH16D | [id number] | | | | | [facility] | [phone] | | | | | and [place], | | | | | | [facility] | | | | | | [place], [place] | | | | | | [address] | | | | | | [phone] | | | +--------+--------+ + + + [...] | | 2018 | Visit | | [address] | | | | | | [place], [place] | | | | | | [address] | | | | | | [phone] | | | | | | | | +--------+---------+ + + + documented as of this encounter Visit Diagnoses Not on filedocumented in this encounter"
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
--- OUTSIDE RECORDS SUMMARY | ~2019-01-09 | XMS | Encounter Summary ---
Demographics + + + | Address | [address] | | | [place] [address] | + + + | Home Phone | | + + + | Preferred Language | Unknown | + + + | Marital Status | | + + + | Buddhism Affiliation | Unknown | + + + [...] Team Providers + +------+ + | Care Telegraph Messenger Name | Role | Phone | + [...] + + | 01/01/ | Telephone | [facility] | [place], | Lab findings, | | 2015 | | Health at [place] | MD [facility] | teaching, guidance, | | | | [address]ilion [address] | and counseling | | | | [address] | Rd [place], [place] | | | | | [facility] | [address] | | | | | [place], [place] | [phone] | | | | | [address] | | | | | | [phone] | | | +--------+ + + + [...] | | 2018 | Visit | | [address] | | | | | | [place], [place] | | | | | | [address] | | | | | | [phone] | | | | | | | | +--------+---------+ + + + documented as of this encounter Visit Diagnoses Not on filedocumented in this encounter"
--- OUTSIDE RECORDS SUMMARY | ~2019-01-09 | XMS | Encounter Summary ---
Demographics + + + | Address | [address] | | | [place] [address] | + + + | Home Phone | | + + + | Preferred Language | Unknown | + + + | Marital Status | | + + + | Yazidism Affiliation | Unknown | + + + | Race | White | + + + | Ethnic Group | Not or | + + + Author + + + | Author | [facility] | + + + | Organization | [facility] | + + + | Address | Unknown | + + + | Phone | Unavailable | + + + Support + + +---------+ + | Name | Relationship | Address | Phone | + + +---------+ + | Arnoldo Mata | ECON | Unknown | | + + +---------+ + Care Team Providers + +------+ + | Care Web Architect Name | Role | Phone | + [...] + + | 01/01/ | Telephone | [facility] | [place], | Lab findings, | | 2015 | | [facility] at [place] | [address] | teaching, guidance, | | | | [address] | [address] | and counseling | | | | [address] | Rd [place], [place] | | | | | [facility] | [address] | | | | | [place], [place] | [phone] | | | | | [address] | | | | | | [phone] | | | +--------+ + + + [...] | | 2018 | Visit | | [address] | | | | | | [place], [place] | | | | | | [address] | | | | | | [phone] | | | | | | | | +--------+---------+ + + + documented as of this encounter Visit Diagnoses Not on filedocumented in this encounter"
--- OUTSIDE RECORDS SUMMARY | ~2019-01-09 | XMS | Encounter Summary ---
Demographics + + + | Address | [address] | | | [place] [address] | + + + | Home Phone | | + + + | Preferred Language | Unknown | + + + | Marital Status | | + + + | Mormon Affiliation | Unknown | + + + [...] Team Providers + +------+ + | Care Neuroscience Specialist Name | Role | Phone | + [...] | 2018 | Encounter | Medical at [facility] | MD [address] | Remission | | | | Floor [address] | [place], [place] | | | | | [place] Mailcode: CH16D | [address] | | | | | [facility] | [phone] | | | | | and Healing, | | | | | | | | | | | | Floor [facility] [place] | | | | | | [address] | | | | | | [phone] | | | +--------+ + + + [...] | | | | | | [place], [place] | | | | | | [address] | | | | | | [phone] | | | | | | | | +--------+---------+ + + + documented as of this encounter Visit Diagnoses Not on filedocumented in this encounter"
--- OUTSIDE RECORDS SUMMARY | ~2019-01-09 | XMS | Encounter Summary ---
Demographics + + + | Address | [address] | | | [place] [address] | + + + | Home Phone | | + + + | Preferred Language | Unknown | + + + | Marital Status | | + + + | Tenriism Affiliation | Unknown | + + + | Race | White | + + + | Ethnic Group | Not or | + + + Author + + + | Author | [facility] | + + + | Organization | [facility] | + + + | Address | Unknown | + + + | Phone | Unavailable | + + + Support + + +---------+ + | Name | Relationship | Address | Phone | + + +---------+ + | Arnoldo Mata | ECON | Unknown | | + + +---------+ + Care Team Providers + +------+ + | Care International Accounting Manager Name | Role | Phone | [...] | Dermatology | Diagnoses | [place], | [facility] | | | Services | | | [place], | [address] | | | Required | | Acantholytic | MD [address] | | | | | vesicular | [address] | Mailcode: | | | | | dermatitis | [address] | [facility] Center | | | | | [facility] | [place], [place] | for Health | | | | | y disease | [address] | and Healing, | | | | | Procedures | Phone: | Building [address], | | | | | CONSULT TO | [phone] | 16th Floor | | | | | DERM & DERM | Fax: | [place], [place] | | | | | SURGERY | [phone] | [address] | | | | | | | Phone: | | | | | | | [phone] | | | | | | | Fax: | | | | | | | [phone] | +--------+ + + + + + Encounter Details +--------+---------+ + + + | Date | Type | Department | Care Team | Description | +--------+---------+ + + + | 01/08/ | Office | Dermatology | Keara Kraus, | Acantholytic | | 2017 | Visit | Medical at [facility] | MD [address] | vesicular dermatitis | | | | Floor [address] | [place], [place] | of the genitals | | | | Ave Mailcode: [address] | [address] | (Primary Dx) | | | | [facility] | [phone] | | | | | and Healing, | | | | | | Building | | | | | | Floor [place], [place] | | | | | | [address] | | | | | | [phone] | | | +--------+---------+ + + + [...] with the document ation. Keara Kraus M.D. Call Center Professional of Dermatology. Blaine Watson MD - 01/08/2017 [...] vaginal ring, , Disp: , Rfl: 3 Vit27&Yjbpsuk-Ialw-YL 60 mg iron-1 mg oral tablet, Take [...] correlation with immunofluorescence studies is recommended. Materials Returned:[id number] x 5 slides My electronic signature indicates [...] positive and negative control for each immunoreactant. LHM:sandee 12/29/14 VULVAR BIOPSY November 2014 DIAGNOSIS: INTRAEPIDERMAL [...] diagnosis. Rendering Diagnostician: Jose A Lim MD [facility] [address] [address] ASSESSMENT AND PLAN: Dorothy Mata is a [...] NATANAEL Lo MD Resident, Department of Dermatology [facility] Pager [phone] documented in this en counter Plan of Treatment +--------+---------+ + + + | Date | Type | Specialty | Care Team | Description | +--------+---------+ + + + | 01/27/ | Office | Dermatology | Keara Kraus, | | | 2019 | Visit | | [address] | | | | | | [place], [place] | | | | | | [address] | | | | | | [phone] | | | | | | | | +--------+---------+ + + + documented as of this encounter Visit Diagnoses + + | Diagnosis | + + | 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
--- OUTSIDE RECORDS SUMMARY | ~2019-01-09 | XMS | Encounter Summary ---
Demographics + + + | Address | [address] | | | [place] [address] | + + + | Home Phone | | + + + | Preferred Language | Unknown | + + + | Marital Status | | + + + | Christian Affiliation | Unknown | + + + | Race | White | + + + | Ethnic Group | Not or | + + + Author + + + | Author | [facility] | + + + | Organization | [facility] | + + + | Address | Unknown | + + + | Phone | Unavailable | + + + Support + + +---------+ + | Name | Relationship | Address | Phone | + + +---------+ + | Arnoldo Mata | ECON | Unknown | | + + +---------+ + Care Team Providers + +------+ + | Care Dental Practice Manager Name | Role | Phone | [...] | +--------+ + + + + | 02/22/ | Telephone | Dermatology | Keara Kraus, | Discussion | | 2016 | | Medical at [facility] | [address] | | | | | Floor [address] | [place], [place] | | | | | [place] Mailcode: CH16D | [address] | | | | | [facility] | [phone] | | | | | and Healing, | | | | | | [facility] | | | | | | [place], [place] | | | | | | [address] | | | | | | [phone] | | | +--------+ + + + [...] [address] | | | | | | [place], [place] | | | | | | [address] | | | | | | [phone] | | | | | | | | +--------+---------+ + + + documented as of this encounter Visit Diagnoses Not on filedocumented in this encounter"
--- OUTSIDE RECORDS SUMMARY | ~2019-01-09 | XMS | Encounter Summary ---
Demographics + + + | Address | [address] | | | [place] [address] | + + + | Home Phone | | + + + | Preferred Language | Unknown | + + + | Marital Status | | + + + | Confucianist Affiliation | Unknown | + + + [...] Team Providers + +------+ + | Care Meat Seafood Associate Name | Role | Phone | + [...] | | | | | itching | [place] | [address] | | | | | Lichen | Womens | [address] | | | | | sclerosus et | [facility] | [address] | | | | | atrophicus | [address] | [address]ric | | | | | | [address] | Pavilion | | | | | | [address] | [place], [place] | | | | | | [place], [place] | [address] | | | | | | [address] | Phone: | | | | | | Phone: | [phone] | | | | | | [phone] | Fax: | | | | | | Fax: | [phone] | | | | | | [phone] | | +--------+--------+ + + + + Encounter Details +--------+---------+ + + + | Date | Type | Department | Care Team | Description | +--------+---------+ + + + | 12/24/ | Office | [facility] | Aleksander, | 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 If you are experiencing pain or irritation, [...] daughter named Keiry; Delivered last child in [place]. 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 Does VOICE GOAL: Sex less painful; sx control for the itch. Romario Lim MD [facility] [address] [place] [address] Past Medical History Diagnosis Date Lichen sclerosus Fibromyalgia Psoriasis Past Surgical History Procedure Laterality Date section 01/10/13 Tonsillectomy 09/2010 Family History Problem Relation Thyroid Mother Depression Mother Arthritis Father Asthma sibling Thyroid sibling No LMP recorded. 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 Sexual Activity: Patient is sexually active with a male partner. Contraception: nothing. Sexually Transmitted Infections: No history. Obstetric History: deliveries: 1. Current Outpatient Prescriptions Medication Sig DESONIDE TOP Apply to affected area. 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
--- OUTSIDE RECORDS SUMMARY | ~2019-01-09 | XMS | Encounter Summary ---
Demographics + + + | Address | [address] | | | [place] [address] | + + + | Home Phone [...] + + + | Author | [facility] | + + + | Organization | [facility] | + + + | Address | Unknown | + + + | Phone | Unavailable | + + + Support + + +---------+ + | Name | Relationship | Address | Phone | + + +---------+ + | Arnoldo Mata | ECON | Unknown | | + + +---------+ + Care Team Providers + +------+ + | Care Editing Computer Publisher Name | Role | Phone | + +------+ + | Robert Velazquez DO | PCP | | + +------+ + Encounter Details +--------+------+ + + + | Date | Type | Department | Care Team | Description | +--------+------+ + + + | 01/29/ | Lab | Laboratory at [facility] | | Acantholytic | | 2017 | | [address] | | vesicular dermatitis | | | | [place], [place] | | of the genitals | | | | [address] | | | | | | [phone] | | | +--------+------+ + + + [...] | | 2019 | Visit | | [address] | | | | | | [place], [place] | | | | | | [address] | | | | | | [phone] | | | | | | | [...] | | | LABORATORY | | | CYPRIOT | | | SERVICES, | | | [...] | + + + + + | [facility] | [address] | [place] [address] | | | SERVICES, CORE | [address] | | | + + + + + documented in this encounter Visit Diagnoses + + | Diagnosis | + + | Acantholytic vesicular dermatitis of the genitals Contact dermatitis and other | | eczema, due to unspecified cause | + + documented in this encounter"
--- OUTSIDE RECORDS SUMMARY | ~2019-01-09 | XMS | Encounter Summary ---
Demographics + + + | Address | [address] | | | [place] [address] | + + + | Home Phone | | + + + | Preferred Language | Unknown | + + + | Marital Status | | + + + | Jew Affiliation | Unknown | + + + [...] Team Providers + +------+ + | Care Coal Trimmer Name | Role | Phone | + [...] [facility] | | | | | [facility] | [place], [place] | for Health | | | | | y disease | [address] | and Healing, | | | | | Procedures | Phone: | Building 1, | | | | | CONSULT TO | [phone] | 16th Floor | | | | | DERM & DERM | Fax: | [place], [place] | | | | | SURGERY | [phone] | [address] | | | | | | | Phone: | | | | | | | [phone] | | | | | | | Fax: | | | | | | | [phone] | +--------+ + + + + + Encounter Details +--------+---------+ + + + | Date | Type | Department | Care Team | Description | +--------+---------+ + + + | 01/08/ | Office | Dermatology | Keara Kraus, | Acantholytic | | 2017 | Visit | Medical at [facility] | MD [address] | vesicular dermatitis | | | | Floor [address] | [place], [place] | of the genitals | | | | Ave Mailcode: 16D | [address] | (Primary Dx) | | | | [facility] | [phone] | | | | | and Healing, | | | | | | Building | | | | | | Floor [place], [place] | | | | | | [address] | | | | | | [phone] | | | +--------+---------+ + + + [...] with the document ation. Keara Kraus M.D. Precision Agriculture Specialist of Dermatology. Blaine Watson MD - [...] vaginal ring, , Disp: , Rfl: 3 Vit27&Fygcmiz-Ohnf-RY 60 mg iron-1 mg oral tablet, Take [...] correlation with immunofluorescence studies is recommended. Materials Returned:[id number] x 5 slides My electronic signature indicates [...] diagnosis. Rendering Diagnostician: Jose A Lim MD [facility] [address] [address] ASSESSMENT AND PLAN: Dorothy Mata is a [...] NATANAEL Lo MD Resident, Department of Dermatology [facility] Pager [phone] documented in this en counter Plan of Treatment +--------+---------+ + + + | Date | Type | Specialty | Care Team | Description | +--------+---------+ + + + | 01/27/ | Office | Dermatology | Keara Kraus, | | | 2019 | Visit | | [address] | | | | | | [place], [place] | | | | | | [address] | | | | | | [phone] | | | | | | | | +--------+---------+ + + + documented as of this encounter Visit Diagnoses + + | Diagnosis | + + | 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
--- OUTSIDE RECORDS SUMMARY | ~2019-01-09 | XMS | Encounter Summary ---
Demographics + + + | Address | [address] | | | [place] [address] | + + + | Home Phone | | + + + | Preferred Language | Unknown | + + + | Marital Status | | + + + | Episcopalian Affiliation | Unknown | + + + | Race | White | + + + | Ethnic Group | Not or | + + + Author + + + | Author | [facility] | + + + | Organization | [facility] | + + + | Address | Unknown | + + + | Phone | Unavailable | + + + Support + + +---------+ + | Name | Relationship | Address | Phone | + + +---------+ + | Arnoldo Mata | ECON | Unknown | | + + +---------+ + Care Team Providers + +------+ + | Care Teaching Assistant Name | Role | Phone | [...] | | 2016 | | Medical at [facility] | [address] | | | | | Floor [address] | [place], [place] | | | | | [place] Mailcode: CH16D | [address] | | | | | [facility] | [phone] | | | | | and Healing, | | | | | | [facility] | | | | | | [place], [place] | | | | | | [address] | | | | | | [phone] | | | +--------+ + + + [...] [address] | | | | | | [place], [place] | | | | | | [address] | | | | | | [phone] | | | | | | | | +--------+---------+ + + + documented as of this encounter Visit Diagnoses Not on filedocumented in this encounter"
--- OUTSIDE RECORDS SUMMARY | ~2019-01-09 | XMS | Encounter Summary ---
Demographics + + + | Address | [address] | | | [place] [address] | + + + | Home Phone | | + + + | Preferred Language | Unknown | + + + | Marital Status | | + + + | Holiness Affiliation | Unknown | + + + | Race | White | + + + | Ethnic Group | Not or | + + + Author + + + | Author | [facility] | + + + | Organization | [facility] | + + + | Address | Unknown | + + + | Phone | Unavailable | + + + Support + + +---------+ + | Name | Relationship | Address | Phone | + + +---------+ + | Arnoldo Mata | ECON | Unknown | | + + +---------+ + Care Team Providers + +------+ + | Care Concrete Truck Driver Name | Role | Phone | + [...] | Telephone | [facility] | [place] | [place]; | | 2014 | | [facility] | [address] | | | | | [address] | [address] | | | | | [address] | Rd [place], [place] | | | | | [address] | [address] | | | | | [place], [place] | [phone] | | | | | [address] | | | | | | [phone] | | | +--------+ + + + [...] | | 2018 | Visit | | [address] | | | | | | [place], [place] | | | | | | [address] | | | | | | [phone] | | | | | | | | +--------+---------+ + + + documented as of this encounter Visit Diagnoses Not on filedocumented in this encounter"
--- OUTSIDE RECORDS SUMMARY | ~2019-01-09 | XMS | Encounter Summary ---
Demographics + + + | Address | [address] | | | [place] [address] | + + + | Home Phone | | + + + | Preferred Language | Unknown | + + + | Marital Status | | + + + | Confucianism Affiliation | Unknown | + + + | Race | White | + + + | Ethnic Group | Not or | + + + Author + + + | Author | [facility] | + + + | Organization | [facility] | + + + | Address | Unknown | + + + | Phone | Unavailable | + + + Support + + +---------+ + | Name | Relationship | Address | Phone | + + +---------+ + | Arnoldo Mata | ECON | Unknown | | + + +---------+ + Care Team Providers + +------+ + | Care Sales Representative Gas Service Name | Role | Phone | + +------+ + | Robert Velazquez DO | PCP | | + +------+ + Encounter Details +--------+------+ + + + | Date | Type | Department | Care Team | Description | +--------+------+ + + + | 01/29/ | Lab | Laboratory at [facility] | | Acantholytic | | 2017 | | [address] | | vesicular dermatitis | | | | [place], [place] | | of the genitals | | | | [address] | | | | | | [phone] | | | +--------+------+ + + + [...] | | 2019 | Visit | | [address] | | | | | | [place], [place] | | | | | | [address] | | | | | | [phone] | | | | | | | [...] [facility] | [address] | [place] [address] | | | SERVICES, CORE | [address] | | | + + + + + documented in this encounter Visit Diagnoses + + | Diagnosis | + + | Acantholytic vesicular dermatitis of the genitals Contact dermatitis and other | | eczema, due to unspecified cause | + + documented in this encounter"
--- OUTSIDE RECORDS SUMMARY | ~2019-01-09 | XMS | Encounter Summary ---
Demographics + + + | Address | [address] | | | [place] [address] | + + + | Home Phone [...] Team Providers + +------+ + | Care Potato Chip Maker Name | Role | Phone | + [...] Kraus, | Neoplasm of skin | | 2018 | Visit | Medical at [facility] [address] | [address] | (Primary Dx); | | | | Floor [address] | [place], [place] | Priyanka | | | | [place] Mailcode: CH16D | [address] | disease | | | | [facility] | [phone] | | | | | and [address], | | | | | | Building | | | | | | Floor [place], [place] | | | | | | [address] | | | | | | [phone] | | | +--------+---------+ + + + [...] Miya Riley MD - 01/21/2018 10:[address] [facility] LookStat [facility] DEPARTMENT OF DERMATOLOGY [address] [place] [address], BIOPSY WOUND CARE INSTRUCTIONS General Care Wound [...] is rare, but if present, try an bhxr-sfb-xlpejvl pain medication such as Tylenol ev amanda four hours (if you are able to take this medication). If you are having a great deal of pain, please contact the clinic. Complications If bleeding occurs, apply firm pressure directly over the wound for 15 minutes (no dylon ng). Time yourself with a clock as this [...] ANY QUESTIONS, PLEASE CONTACT THE CLINIC AT [phone] After hours, please call the hospital wheelchair van operator first responder and ask for the on-call manager float at [phone]. Please note: In addition to your office [...] note for this encounter. Keara Kraus M.D. Screw Machine Operator of Dermatology. Miya Mcadams MD - 1 03/23/2017 10:40 AM PSTPlease let patient know benign biopsy results; c/w congenital nevus.El ectronically signed by Miya Riley MD at 01/24/2018 2:12 PM Miya cMadams MD - 2017 10:40 AM PSTDERMATOLOGY FOLLOW-UP VISIT Last Appointment in [facility] was on 01/29/17 at 3:42 pm with [...] except for the following: -on the left synagogue is a brown pedunculated papule(photo and biopsy [...] retinoid s 2. 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) Procedure Note - [...] Miya Riley MD MPH Dermatology Resident, PGY3 [facility] documented in this en counter Plan of Treatment +--------+---------+ + + + | Date | Type | Specialty | Care Team | Description | +--------+---------+ + + + | 01/27/ | Office | Dermatology | eKara Kraus, | | | 2019 | Visit | | [address] | | | | | | [place], [place] | | | | | | [address] | | | | | | [phone] | | | | | | | | +--------+---------+ + + + documented as of this encounter Procedures + +--------+ + + + | Procedure Name | Priori | Date/Time | Associated Diagnosis | Comments | | | ty | | | | + +--------+ + + + | [place] BIOPSY OF SKIN | Routin | 01/31/2018 [...] | Jennifer Cadena | | | (LEFT PRESYBETERIAN)NOTE: There | | | Judith Adams, | [...] | | | | | | "Left synagogue" and | | | | | | consists of two | | | | | | irregular shaves of | | | | | | papular sdlyz-ccz-twmjh | | | | | | skin, [...] [facility] | Mailcode CH5D, [address] | [place] [address] | | | DERMATOPATHOLOGY | [address] [...]
--- OUTSIDE RECORDS SUMMARY | ~2019-01-09 | XMS | Encounter Summary ---
Demographics + + + | Address | [address] | | | [place] [address] | + + + | Home Phone | | + + + | Preferred Language | Unknown | + + + | Marital Status | | + + + | Jainism Affiliation | Unknown | + + + [...] Team Providers + +------+ + | Care Sand Mill Operator Facing Sand Name | Role | Phone | + [...] | | | | | itching | [place] | [address] | | | | | Lichen | Womens | [address] | | | | | sclerosus et | Clinic [facility] | [address] | | | | | atrophicus | [address] | [address] | | | | | | [address] | Pavilion | | | | | | [address] | [place], [place] | | | | | | [place], [place] | [address] | | | | | | [address] | Phone: | | | | | | Phone: | [phone] | | | | | | [phone] | Fax: | | | | | | Fax: | [phone] | | | | | | [phone] | | +--------+--------+ + + + + Encounter Details +--------+---------+ + + + | Date | Type | Department | Care Team | Description | +--------+---------+ + + + | 01/13/ | Office | [facility] | Ale[place], | Acantholytic | | 2015 | Visit | [facility] [place] | [address] | vesicular dermatitis | | | | [address] | [address] | (Primary Dx) | | | | [address] | Rd [place], [place] | | | | | [address] | [address] | | | | | [place], [place] | [phone] | | | | | [address] | | | | | | [phone] | | | +--------+---------+ + + + [...] mimic Sujit Sujit disease, Darier's disease, and Jefferson[place]'s disease histologically , but it is differentiated [...] after your delivery--why dont you call after Coleman or into the New for that appt in August documented in this encounter Progress Notes Emerald Armijo MD - 01/13/2015 7:32 AM PDT VULVAR INTERVAL EXAM Dorothy "Irene" [...] Bessy tocrural / Perineal Region. Likely Sujit Sujit from the biopsies below. 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 Irene is here to discuss treatment options with the assumption that this is an 2. Social: arrived, 3yo daughter named Keiry; Delivered last child in [place]. Finishing her grad program in [employer] in [employer] for elementary school. Does VOICE [...] correlation with immunofluorescence studies is recommended. Materials Returned:[id number] x 5 slides My electronic signature indicates [...] diagnosis. Rendering Diagnostician: Jose A Lim MD [facility] [address], [place] [address] Past Medical History Diagnosis Date Lichen sclerosus Fibromyalgia Psoriasis Past Surgical History Procedure Laterality Date section 01/10/13 Tonsillectomy 09/2010 Family History Problem Relation Thyroid Mother Depression Mother Arthritis Father Asthma sibling Thyroid sibling No LMP recorded. 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 Sexual Activity: Patient is sexually active with a male partner. Contraception: nothing. Sexually Transmitted Infections: No history. Obstetric History: deliveries: 1. Current Outpatient Prescriptions Medication Sig DESONIDE TOP Apply to affected area. Vit27&Cmcjtcj-Nzye-IN 60 mg iron-1 mg oral tablet Take [...] mimic Sujit Sujit disease, Darier's disease, and [place]'s disease histologically , but it is differentiated [...] in [facility] documented in this encounter Plan of Treatment +--------+---------+ + + + | Date | Type | Specialty | Care Team | Description | +--------+---------+ + + + | 01/27/ | Office | Dermatology | Keara Kraus, | | | 2019 | Visit | | [address] | | | | | | [place], [place] | | | | | | [address] | | | | | | [phone] | | | | | | | | +--------+---------+ + + + documented as of this encounter Visit Diagnoses + + | Diagnosis | + + | 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
--- OUTSIDE RECORDS SUMMARY | ~2019-01-09 | XMS | Encounter Summary ---
Demographics + + + | Address | [address] | | | [place] [address] | + + + | Home Phone [...] + + + | Author | [facility] | + + + | Organization | [facility] | + + + | Address | Unknown | + + + | Phone | Unavailable | + + + Support + + +---------+ + | Name | Relationship | Address | Phone | + + +---------+ + | Arnoldo Mata | ECON | Unknown | | + + +---------+ + Care Team Providers + +------+ + | Care Carbon Paper Coating Machine Setter Name | Role | Phone | + +------+ + | Robert Velazquez DO | PCP | | + +------+ + Encounter Details +--------+ + + + + | Date | Type | Department | Care Team | Description | +--------+ + + + + | 01/07/ | MyChart | [facility] | Aleksander, | | | 2015 | Encounter | [facility] at [place] | [address] | | | | | [address] | | | | | [address] | [place], [place] | | | | | [address] | [address] | | | | | [place], [place] | [phone] | | | | | [address] | | | | | | [phone] | | | +--------+ + + + [...] | | 2019 | Visit | | [address] | | | | | | [place], [place] | | | | | | [address] | | | | | | [phone] | | | | | | | | +--------+---------+ + + + documented as of this encounter Visit Diagnoses Not on filedocumented in this encounter"
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
--- OUTSIDE RECORDS SUMMARY | ~2019-01-09 | XMS | Encounter Summary ---
Demographics + + + | Address | [address] | | | [place] [address] | + + + | Home Phone | | + + + | Preferred Language | Unknown | + + + | Marital Status | | + + + | Pentecostal Affiliation | Unknown | + + + | Race | White | + + + | Ethnic Group | Not or | + + + Author + + + | Author | [facility] | + + + | Organization | [facility] | + + + | Address | Unknown | + + + | Phone | Unavailable | + + + Support + + +---------+ + | Name | Relationship | Address | Phone | + + +---------+ + | Arnoldo Mata | ECON | Unknown | | + + +---------+ + Care Team Providers + +------+ + | Care Mechanical Engineering Teacher Name | Role | Phone | [...] | 2018 | Visit | Medical at [facility] 16 | [address] | (Primary Dx); | | | | Floor [address] | [place], [place] | Priyanka | | | | [place] Mailcode: CH16D | [address] | disease | | | | [facility] | [phone] | | | | | and [address], | | | | | | Building | | | | | | Floor [place], [place] | | | | | | [address] | | | | | | [phone] | | | +--------+---------+ + + + [...] Miya Riley MD - 01/21/2018 10:40 AM [facility] [employer] [facility] DEPARTMENT OF DERMATOLOGY [address] [place] [address], BIOPSY WOUND CARE INSTRUCTIONS General Care Wound [...] is rare, but if present, try an tgnp-xrj-jnkkxkf pain medication such as Tylenol ev amanda [...] ANY QUESTIONS, PLEASE CONTACT THE CLINIC AT [phone] After hours, please call the hospital rotary dump operator and ask for the on-call equal opportunity specialist at [phone]. Please note: In addition to your office [...] note for this encounter. Keara Kraus M.D. Seed Production Field Supervisor of Dermatology. Miya Mcadams MD - 1 03/23/2017 10:40 AM PSTPlease let patient know benign biopsy results; c/w congenital nevus.El ectronically signed by Miya Riley MD at 01/24/2018 2:12 PM Miya Mcadams MD - 2017 10:40 AM PSTDERMATOLOGY FOLLOW-UP VISIT Last Appointment in [facility] was on 01/29/17 at 3:42 pm with [...] except for the following: -on the left faith is a brown pedunculated papule(photo and biopsy [...] retinoid s 2. Neoplasm of skin left faith (traumatized nevus vs SK) Procedure Note - [...] Miya Riley MD MPH Dermatology Resident, PGY3 [facility] documented in this en counter Plan of Treatment +--------+---------+ + + + | Date | Type | Specialty | Care Team | Description | +--------+---------+ + + + | 01/27/ | Office | Dermatology | Keara Kraus, | | | 2019 | Visit | | [address] | | | | | | [place], [place] | | | | | | [address] | | | | | | [phone] | | | | | | | | +--------+---------+ + + + documented as of this encounter Procedures + +--------+ + + + | Procedure Name | Priori | Date/Time | Associated Diagnosis | Comments | | | ty | | | | + +--------+ + + + | CT BIOPSY OF SKIN | Routin | 01/31/2018 [...] | Jennifer Cadena | | | (LEFT MANDAEN)NOTE: There | | | Judith Adams, | [...] | | | | | | "Left faith" and | | | | | | consists of two | | | | | | irregular shaves of | | | | | | papular jxbuv-zto-aojgi | | | | | | skin, [...] [facility] | Mailcode CH5D, [address] | [place] [address] | | | DERMATOPATHOLOGY | [address] [...]
--- OUTSIDE RECORDS SUMMARY | ~2019-01-09 | XMS | Clinical Summary ---
Demographics + + + | Address | [address] | | | [place] [address] | + + + | Home Phone | | + + + | Preferred Language | Unknown | + + + | Marital Status | | + + + | Alevism Affiliation | Unknown | + + + [...] Team Providers + +------+ + | Care Set Off Press Operator Name | Role | Phone | + +------+ + | Robert Velazquez DO | PCP | | + +------+ + Source Comments MYARA is fully live on both [facility] Ambulatory and [facility] InPatient.[facility] Allergies + + + + [...] 0 | | | Activ | | Vit27&Fygcskw-Vmvf-C | | | | | | e [...] | | 2019 | Visit | | [address] | | | | | | [place], [place] | | | | | | [address] | | | | | | [phone] | | | | | | | [...] OEBB | MODA | [phone] | | [phone] | [address] | [address] | | | OEBB | | [phone] | [address] | [phone] | | | | [address]NEX | | esent | | [place], | | | | [place] | | | | [place] [address] | | + +--------+ +--------+ + +------+ [...] | | jaziel/Geovany | | 1990 | [phone] | [place] [address] | | | veto | | | 4 (Home) | | + +--------+ +--------+ + +
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
--- OUTSIDE RECORDS SUMMARY | ~2019-01-09 | XMS | Encounter Summary ---
Demographics + + + | Address | [address] | | | [place] [address] | + + + | Home Phone | | + + + | Preferred Language | Unknown | + + + | Marital Status | | + + + | Sikh Affiliation | Unknown | + + + [...] Team Providers + +------+ + | Care Corrosion Control Technician Name | Role | Phone | + [...] | | 2016 | | Medical at [facility] | [address] | | | | | Floor [address] | [place], [place] | | | | | [place] Mailcode: CH16D | [address] | | | | | [facility] | [phone] | | | | | and Healing, | | | | | | [facility] | | | | | | [place], [place] | | | | | | [address] | | | | | | [phone] | | | +--------+ + + + [...] [address] | | | | | | [place], [place] | | | | | | [address] | | | | | | [phone] | | | | | | | | +--------+---------+ + + + documented as of this encounter Visit Diagnoses Not on filedocumented in this encounter"
--- OUTSIDE RECORDS SUMMARY | ~2019-01-09 | XMS | Encounter Summary ---
Demographics + + + | Address | [address] | | | [place] [address] | + + + | Home Phone | | + + + | Preferred Language | Unknown | + + + | Marital Status | | + + + | Holiness Affiliation | Unknown | + + + | Race | White | + + + | Ethnic Group | Not or | + + + Author + + + | Author | [facility] | + + + | Organization | [facility] | + + + | Address | Unknown | + + + | Phone | Unavailable | + + + Support + + +---------+ + | Name | Relationship | Address | Phone | + + +---------+ + | Arnoldo Mata | ECON | Unknown | | + + +---------+ + Care Team Providers + +------+ + | Care Hotshot Superintendent Name | Role | Phone | + [...] | | | | | itching | [place] | [address] | | | | | Lichen | Womens | [address] | | | | | sclerosus et | Clinic [facility] | [address] | | | | | atrophicus | [address] | [address] | | | | | | [address] | Pavilion | | | | | | [address] | [place], [place] | | | | | | [place], [place] | [address] | | | | | | [address] | Phone: | | | | | | Phone: | [phone] | | | | | | [phone] | Fax: | | | | | | Fax: | [phone] | | | | | | [phone] | | +--------+--------+ + + + + Encounter Details +--------+---------+ + + + | Date | Type | Department | Care Team | Description | +--------+---------+ + + + | 01/13/ | Office [facility] | [place], | 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 Does VOICE [...] correlation with immunofluorescence studies is recommended. Materials Returned:[id number] x 5 slides My electronic signature indicates [...] diagnosis. Rendering Diagnostician: Jose A Lim MD [facility] [address], [place] [address] Past Medical History Diagnosis Date Lichen sclerosus Fibromyalgia Psoriasis Past Surgical History Procedure Laterality Date section 01/10/13 Tonsillectomy 09/2010 Family History Problem Relation Thyroid Mother Depression Mother Arthritis Father Asthma sibling Thyroid sibling No LMP recorded. 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 Sexual Activity: Patient is sexually active with a male partner. Contraception: nothing. Sexually Transmitted Infections: No history. Obstetric History: deliveries: 1. Current Outpatient Prescriptions Medication Sig DESONIDE TOP Apply to affected area. Vit27&Kzkckap-Qfho-UJ 60 mg iron-1 mg oral tablet Take [...] mimic Sujit Sujit disease, Darier's disease, and Burnside's disease histologically , but it is differentiated [...] in 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
--- OUTSIDE RECORDS SUMMARY | ~2019-01-09 | XMS | Encounter Summary ---
Demographics + + + | Address | [address] | | | [place] [address] | + + + | Home Phone | | + + + | Preferred Language | Unknown | + + + | Marital Status | | + + + | Synagogue Affiliation | Unknown | + + + | Race | White | + + + | Ethnic Group | Not or | + + + Author + + + | Author | [facility] | + + + | Organization | [facility] | + + + | Address | Unknown | + + + | Phone | Unavailable | + + + Support + + +---------+ + | Name | Relationship | Address | Phone | + + +---------+ + | Arnoldo Mata | ECON | Unknown | | + + +---------+ + Care Team Providers + +------+ + | Care Manager Business Banking Name | Role | Phone | + +------+ + | Robert Velazquez DO | PCP | | + +------+ + Reason for Referral Consultation (Routine) +--------+ + + + + + | Status | Reason | Specialty | Diagnoses / | Referred By | Referred To | | | | | Procedures | Contact | Contact | +--------+ + + + + + | Closed | Specialty | Dermatology | Diagnoses | Ale[place] | m Med | | | Services | | | [place], | [address] | | | Required | | Acantholytic | [address] | [address] | | | | | vesicular | [address] | Mailcode: | | | | | dermatitis | [address] | [address] [place] | | | | | [address] | [place], [place] | for Health | | | | | y disease | [address] | and Healing, | | | | | Procedures | Phone: | Building 1, | | | | | CONSULT TO | [phone] | 16th Floor | | | | | DERM & DERM | Fax: | [place], [place] | | | | | SURGERY | [phone] | [address] | | | | | | | Phone: | | | | | | | [phone] | | | | | | | Fax: | | | | | | | [phone] | +--------+ + + + + + Encounter Details +--------+ + + + + | Date | Type | Department | Care Team | Description | +--------+ + + + + | 12/28/ | MyChart | [facility] | [place], | RE:skin disease | | 2017 | Encounter | [facility] at [place] | [address] | | | | | [address] | [address] | | | | | [address] | [place], [place] | | | | | [address] | [address] | | | | | [facility] [place] | [phone] | | | | | [address] | | | | | | [phone] | | | +--------+ + + + [...] [address] | | | | | | [place], [place] | | | | | | [address] | | | | | | [phone] | | | | | | | | +--------+---------+ + + + documented as of this encounter Visit Diagnoses + + | Diagnosis | + + | Acantholytic vesicular dermatitis of the genitals - Primary Contact dermatitis and | | other eczema, due to unspecified cause | + + | 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
--- OUTSIDE RECORDS SUMMARY | ~2019-01-09 | XMS | Encounter Summary ---
Demographics + + + | Address | [address] | | | [place] [address] | + + + | Home Phone | | + + + | Preferred Language | Unknown | + + + | Marital Status | | + + + | Latter Day Affiliation | Unknown | + + + | Race | White | + + + | Ethnic Group | Not or | + + + Author + + + | Author | [facility] | + + + | Organization | [facility] | + + + | Address | Unknown | + + + | Phone | Unavailable | + + + Support + + +---------+ + | Name | Relationship | Address | Phone | + + +---------+ + | rAnoldo Mata | ECON | Unknown | | + + +---------+ + Care Team Providers + +------+ + | Care Solar/Renewable Energy Sales Name | Role | Phone | + +------+ + | Robert Velazquez DO | PCP | | + +------+ + Encounter Details +--------+ + + + + | Date | Type | Department | Care Team | Description | +--------+ + + + + | 01/07/ | MyChart | [facility] | [place], | | | 2015 | Encounter | [facility] at [place] | [address] | | | | | [address] | [address] | | | | | [address] | [place], [place] | | | | | [address] | [address] | | | | | [place], [place] | [phone] | | | | | [address] | | | | | | [phone] | | | +--------+ + + + [...] | | 2019 | Visit | | [address] | | | | | | [place], [place] | | | | | | [address] | | | | | | [phone] | | | | | | | | +--------+---------+ + + + documented as of this encounter Visit Diagnoses Not on filedocumented in this encounter"
--- OUTSIDE RECORDS SUMMARY | ~2019-01-09 | XMS | Encounter Summary ---
Demographics + + + | Address | [address] | | | [place] [address] | + + + | Home Phone | | + + + | Preferred Language | Unknown | + + + | Marital Status | | + + + | Scientology Affiliation | Unknown | + + + [...] Team Providers + +------+ + | Care K 9 Handler/ Deputy Name | Role | Phone | + [...] | | 2016 | | Medical at [facility] | [address] | | | | | Floor [address] | [place], [place] | | | | | [place] Mailcode: CH16D | [address] | | | | | [facility] | [phone] | | | | | and Healing, | | | | | | [facility] | | | | | | [place], [place] | | | | | | [address] | | | | | | [phone] | | | +--------+ + + + [...] [address] | | | | | | [place], [place] | | | | | | [address] | | | | | | [phone] | | | | | | | | +--------+---------+ + + + documented as of this encounter Visit Diagnoses Not on filedocumented in this encounter"
--- OUTSIDE RECORDS SUMMARY | ~2019-01-09 | XMS | Encounter Summary ---
Demographics + + + | Address | [address] | | | [place] [address] | + + + | Home Phone | | + + + | Preferred Language | Unknown | + + + | Marital Status | | + + + | Confucianist Affiliation | Unknown | + + + | Race | White | + + + | Ethnic Group | Not or | + + + Author + + + | Author | [facility] | + + + | Organization | [facility] | + + + | Address | Unknown | + + + | Phone | Unavailable | + + + Support + + +---------+ + | Name | Relationship | Address | Phone | + + +---------+ + | Arnoldo Mata | ECON | Unknown | | + + +---------+ + Care Team Providers + +------+ + | Care Cytopathology Technologist Name | Role | Phone | + [...] | dermatitis | [address] | [address] [place] | | | | | [address] | [place], [place] | for Health | | | | | y disease | [address] | and Healing, | | | | | Procedures | Phone: | Building 1, | | | | | CONSULT TO | [phone] | 16th Floor | | | | | DERM & DERM | Fax: | [place], [place] | | | | | SURGERY | [phone] | [address] | | | | | | | Phone: | | | | | | | [phone] | | | | | | | Fax: | | | | | | | [phone] | +--------+ + + + + + Encounter Details +--------+ + + + + | Date | Type | Department | Care Team | Description | +--------+ + + + + | 12/28/ | MyChart | [facility] | Ale[place]ander, | RE:skin disease | | 2017 | Encounter | [facility] at [place] | [address] | | | | | [address] | [address] | | | | | [address] | [place], [place] | | | | | [address] | [address] | | | | | [facility] [place] | [phone] | | | | | [address] | | | | | | [phone] | | | +--------+ + + + [...] [address] | | | | | | [place], [place] | | | | | | [address] | | | | | | [phone] | | | | | | | [...]
--- OUTSIDE RECORDS SUMMARY | ~2019-01-09 | XMS | Encounter Summary ---
Demographics + + + | Address | [address] | | | [place] [address] | + + + | Home Phone [...] Phone | + + +---------+ + | Anroldo Mata | ECON | Unknown | | + + +---------+ + Care Team Providers + +------+ + | Care Swatch Folder Name | Role | Phone | + [...] | | 2017 | | Medical at [facility] 16 | [address] | | | | | Floor [address] | [place], [place] | | | | | [place] Mailcode: CH16D | [address] | | | | | [facility] | [phone] | | | | | and [address], | | | | | | [facility] | | | | | | [place], [place] | | | | | | [address] | | | | | | [phone] | | | +--------+--------+ + + + [...] | | 2018 | Visit | | [address] | | | | | | [place], [place] | | | | | | [address] | | | | | | [phone] | | | | | | | | +--------+---------+ + + + documented as of this encounter Visit Diagnoses Not on filedocumented in this encounter"
--- OUTSIDE RECORDS SUMMARY | ~2019-01-09 | XMS | Encounter Summary ---
Demographics + + + | Address | [address] | | | [place] [address] | + + + | Home Phone [...] + + + | Author | [facility] | + + + | Organization | [facility] | + + + | Address | Unknown | + + + | Phone | Unavailable | + + + Support + + +---------+ + | Name | Relationship | Address | Phone | + + +---------+ + | Arnoldo Mata | ECON | Unknown | | + + +---------+ + Care Team Providers + +------+ + | Care Ear Nose Throat Surgeon Name | Role | Phone | + [...] | | | | | itching | [place] | [address] | | | | | Lichen | Womens | [address] | | | | | sclerosus et | [facility] [place] | [address] | | | | | atrophicus | [address] | [address] | | | | | | [address] | Pavilion | | | | | | [address] | [place], [place] | | | | | | [place], [place] | [address] | | | | | | [address] | Phone: | | | | | | Phone: | [phone] | | | | | | [phone] | Fax: | | | | | | Fax: | [phone] | | | | | | [phone] | | +--------+--------+ + + + + Encounter Details +--------+---------+ + + + | Date | Type | Department | Care Team | Description | +--------+---------+ + + + | 12/09/ | Office | [facility] | [place], | Lichen sclerosus | | 2014 | Visit | [facility] at [place] | [address] | (Primary Dx); | | | | [address] | [address] | Hypopigmentation; | | | | [address] | Rd [place], [place]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 If you are experiencing pain or irritation, [...] daughter named Keiry; Delivered last child in [place]. 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 Does VOICE GOAL: Sex less painful; sx control for the itch. Romario Lim MD [facility] [address] [place] [address] Past Medical History Diagnosis Date Lichen sclerosus Fibromyalgia Psoriasis Past Surgical History Procedure Laterality Date section 10/25/13 Tonsillectomy 09/2010 Family History Problem Relation Thyroid Mother Depression Mother Arthritis Father Asthma sibling Thyroid sibling No LMP recorded. 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 Sexual Activity: Patient is sexually active with a male partner. Contraception: nothing. Sexually Transmitted Infections: No history. Obstetric History: deliveries: 1. Current Outpatient Prescriptions Medication Sig DESONIDE TOP Apply to affected area. Vit27&Ufpdixu-Sbhu-SU 60 mg iron-1 mg oral tablet Take [...] [facility] documented in this encounter Plan of Treatment +--------+---------+ + + + | Date | Type | Specialty | Care Team | Description | +--------+---------+ + + + | 01/27/ | Office | Dermatology | Keara Kraus, | | | 2019 | Visit | | [address] | | | | | | [place], [place] | | | | | | [address] | | | | | | [phone] | | | | | | | [...] | + +--------+ + + + | [place] BIOPSY | Routin | 12/09/2014 | Hypopigmentation [...] + | POE - AIRPORT - | [address] | [place] [address] | | | [place] | | | | + + + [...] [facility] | Mailcode [address]5D, [address] | [place] [address] | | | DERMATOPATHOLOGY | [address] [...]
--- OUTSIDE RECORDS SUMMARY | ~2019-01-09 | XMS | Encounter Summary ---
Demographics + + + | Address | [address] | | | [place] [address] | + + + | Home Phone | | + + + | Preferred Language | Unknown | + + + | Marital Status | | + + + | Zoroastrian Affiliation | Unknown | + + + [...] Team Providers + +------+ + | Care Pcat Instructor Name | Role | Phone | + [...] | [place]; | | 2014 | | [facility] | [address] | | | | | [address] | [address] | | | | | [address] | Rd [place], [place] | | | | | [address] | [address] | | | | | [place], [place] | [phone] | | | | | [address] | | | | | | [phone] | | | +--------+ + + + [...] | | 2018 | Visit | | [address] | | | | | | [place], [place] | | | | | | [address] | | | | | | [phone] | | | | | | | | +--------+---------+ + + + documented as of this encounter Visit Diagnoses Not on filedocumented in this encounter"
--- OUTSIDE RECORDS SUMMARY | ~2019-01-09 | XMS | Encounter Summary ---
Demographics + + + | Address | [address] | | | [place] [address] | + + + | Home Phone | | + + + | Preferred Language | Unknown | + + + | Marital Status | | + + + | Adventism Affiliation | Unknown | + + + | Race | White | + + + | Ethnic Group | Not or | + + + Author + + + | Author | [facility] | + + + | Organization | [facility] | + + + | Address | Unknown | + + + | Phone | Unavailable | + + + Support + + +---------+ + | Name | Relationship | Address | Phone | + + +---------+ + | Arnoldo Mata | ECON | Unknown | | + + +---------+ + Care Team Providers + +------+ + | Care Structures Assembler Name | Role | Phone | + +------+ + | Robert Velazquez DO | PCP | | + +------+ + Encounter Details +--------+ + + + + | Date | Type | Department | Care Team | Description | +--------+ + + + + | 12/25/ | Hospital | Dermatopathology | | | | 2014 | Encounter | [address] | | | | | | Mailcode: CH16D | | | | | | [facility] | | | | | | and Healing, | | | | | | Building , | | | | | | [place], [place] | | | | | | [address] | | | | | | [phone] | | | +--------+ + + + [...] | | 0 | | | | Vit27&Tqulzgw-Krwr-T | | | | | | | [...] | | 2019 | Visit | | [address] | | | | | | [place], [place] | | | | | | [address] | | | | | | [phone] | | | | | | | [...] | | (CONSULT) | Left labia majora biopsy | | DERMATOPATH | | | | CLINICAL | | OLOGY | | | | 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 Armijo: Thank | | | | | | [...] | | | | betzy grains. There is | | | | | | a superficialmixed | | | | | | infiltrate of | | | | | | lymphocytes with | | | | | | occasional neutrophils | | | | | | andeosinophils, and | | | | | | scattered melanophages. | | | | | | | [...] consistent | | | | | | withSUJIT-SUJIT | | | | | | DISEASE. [...] | | | | | studies is recommended. | | | | | | Materials | | | | | | Returned:[id number] | | | | | | 1 [...] Diagnostician: | | | | | | Jennifer Wong | | | | | | Bryan | | | | | | MDPathologistElectronica | | | | | | lly Signed 12/28/2014 | | | | | | 8:25AM | | | | + + [...] + | [facility] | Mailcode [address] | [place] [address] | | | DERMATOPATHOLOGY | [address] | | | + + + + + PATHOLOGY (08/06/2014 12:00 AM PDT) + + + | Narrative | Performed At | + + + | | | + + + documented in this encounter Visit Diagnoses Not on filedocumented in this encounter"
--- OUTSIDE RECORDS SUMMARY | ~2019-01-09 | XMS | Encounter Summary ---
Demographics + + + | Address | [address] | | | [place] [address] | + + + | Home Phone | | + + + | Preferred Language | Unknown | + + + | Marital Status | | + + + | Pentecostalism Affiliation | Unknown | + + + | Race | White | + + + | Ethnic Group | Not or | + + + Author + + + | Author | [facility] | + + + | Organization | [facility] | + + + | Address | Unknown | + + + | Phone | Unavailable | + + + Support + + +---------+ + | Name | Relationship | Address | Phone | + + +---------+ + | Arnoldo Mata | ECON | Unknown | | + + +---------+ + Care Team Providers + +------+ + | Care Institutional Research Director Name | Role | Phone | + [...] | dermatitis | Gregory Ann | [address] [facility] | | | | | Monika | [place], [place] | for Health | | | | | y disease | [address] | and Healing, | | | | | Procedures | Phone: | Building [address], | | | | | CONSULT TO | [phone] | 16th Floor | | | | | DERM & DERM | Fax: | [place], [place] | | | | | SURGERY | [phone] | [address] | | | | | | | Phone: | | | | | | | [phone] | | | | | | | Fax: | | | | | | | [phone] | +--------+ + + + + + Encounter Details +--------+---------+ + + + | Date | Type | Department | Care Team | Description | +--------+---------+ + + + | 01/29/ | Office | Dermatology | Keara Kraus, | Acantholytic | | 2017 | Visit | Medical at [facility] | MD [address] | vesicular dermatitis | | | | Floor [address] | [place], [place] | of the genitals | | | | Ave Mailcode: CH16D | [address] | (Primary Dx) | | | | [facility] | [phone] | | | | | and Healing, | | | | | | Building | | | | | | Floor [place], [place] | | | | | | [address] | | | | | | [phone] | | | +--------+---------+ + + + [...] and agree with the document ation. Keara Kruas M.D. Chief Financial Officer of Dermatology. Blaine Block MD - 01/29/2017 10:00 AM PSTDERMATOLOGY FOLLOW-UP VISIT Last Appointment in [facility] was on 01/08/17 at 3:40 pm [...] topical retinoids RTC: 3 months or earlier ANTANAEL Lo MD Resident, Department of Dermatology [facility] Pager [phone] documented in this en counter Plan of Treatment +--------+---------+ + + + | Date | Type | Specialty | Care Team | Description | +--------+---------+ + + + | 01/27/ | Office | Dermatology | Keara Kraus, | | | 2018 | Visit | | [address] | | | | | | [place], [place] | | | | | | [address] | | | | | | [phone] | | | | | | | [...] | | | LABORATORY | | | [facility] | | | SERVICES, | | | [...] | + + + + + | [facility] | [address] | [place] [address] | | | SERVICES, CORE | [address] | | | + + + + + documented in this encounter Visit Diagnoses + + | Diagnosis | + + | 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
--- OUTSIDE RECORDS SUMMARY | ~2019-01-09 | XMS | Encounter Summary ---
Demographics + + + | Address | [address] | | | [place] [address] | + + + | Home Phone | | + + + | Preferred Language | Unknown | + + + | Marital Status | | + + + | Roman Catholic Affiliation | Unknown | + + + [...] Team Providers + +------+ + | Care Oceanic Sciences Professor Name | Role | Phone | + [...] | | | | | itching | [place] | [address] | | | | | Lichen | Womens | [address] | | | | | sclerosus et | Clinic [facility] | [address] | | | | | atrophicus | [address] | [address] | | | | | | [address] | Pavilion | | | | | | [address] | [place], [place] | | | | | | [place], [place] | [address] | | | | | | [address] | Phone: | | | | | | Phone: | [phone] | | | | | | [phone] | Fax: | | | | | | Fax: | [phone] | | | | | | [phone] | | +--------+--------+ + + + + Encounter Details +--------+---------+ + + + | Date | Type | Department | Care Team | Description | +--------+---------+ + + + | 12/28/ | Office | [facility] | Aleksander, | 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 [facility] [place] can [facility] for you. Consider [...] Rashawn (Kasey estrada); Delivered last child in [place]. 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 Anderson like this was great fit--both voice and [...] correlation with immunofluorescence studies is recommended. Materials Returned:[id number] x 5 slides My electronic signature indicates [...] diagnosis. Rendering Diagnostician: Jose A Lim MD [facility] [address] [place] [address] Past Medical History Diagnosis Date Lichen sclerosus Fibromyalgia Psoriasis Past Surgical History Procedure Laterality Date section 01/10/13 Tonsillectomy 09/2010 Family History Problem Relation Thyroid Mother Depression Mother Arthritis Father Asthma sibling Thyroid sibling No LMP recorded. 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 Sexual Activity: Patient is sexually active with a male partner. Contraception: nothing. Sexually Transmitted Infections: No history. Obstetric History: deliveries: 1. Current Outpatient Prescriptions Medication Sig DESONIDE TOP Apply to affected area. lidocaine 5 % topical ointment apply to vulva as needed for pain Vit27&Wspemjb-Jlgq-GQ 60 mg iron-1 mg oral tablet Take by mouth. No current facility-administered medications for this visit. ALLERGIES: Oxycodone SOCIAL HISTORY AND HABITS: Patient is and lives with partner and children (s). 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 She is a nonsmoker. REVIEW OF SYSTEMS: [...] mimic Sujit Sujit disease, Darier's disease, and Burlington's disease histologically , but it is differentiated [...] in [facility] documented in this encounter Plan of Treatment +--------+---------+ + + + | Date | Type | Specialty | Care Team | Description | +--------+---------+ + + + | 01/27/ | Office | Dermatology | Keara Kraus, | | | 2019 | Visit | | [address] | | | | | | [place], [place] | | | | | | [address] | | | | | | [phone] | | | | | | | [...]
--- OUTSIDE RECORDS SUMMARY | ~2019-01-09 | XMS | Encounter Summary ---
Demographics + + + | Address | [address] | | | [place] [address] | + + + | Home Phone | | + + + | Preferred Language | Unknown | + + + | Marital Status | | + + + | Yazidi Affiliation | Unknown | + + + | Race | White | + + + | Ethnic Group | Not or | + + + Author + + + | Author | [facility] | + + + | Organization | [facility] | + + + | Address | Unknown | + + + | Phone | Unavailable | + + + Support + + +---------+ + | Name | Relationship | Address | Phone | + + +---------+ + | Arnoldo Mata | ECON | Unknown | | + + +---------+ + Care Team Providers + +------+ + | Care Panel Flow Machine Operator Name | Role | Phone [...] [address] | | | | | | [facility] | | | | | | and Healing, | | | | | | Building , | | | | | | [place], [place] | | | | | | [address] | | | | | | [phone] | | | +--------+ + + + [...] | | 0 | | | | Vit27&Ckxlylp-Jghw-F | | | | | | | [...] | | 2019 | Visit | | [address] | | | | | | [place], [place] | | | | | | [address] | | | | | | [phone] | | | | | | | [...] dystrophy.Materials | | | | | | Received:[id number] | | | | | | 1 [...] Materials | | | | | | Returned:[id number] | | | | | | 1 [...] | [facility] | Mail[address] | [place] [address] | | | DERMATOPATHOLOGY | [address] | | | + + + + + PATHOLOGY (08/06/2014 12:00 AM PDT) + + + | Narrative | Performed At | + + + | | | + + + documented in this encounter Visit Diagnoses Not on filedocumented in this encounter"
[~2019-01-09 06:25] MED LIST: PRENATAL COMPL1 EACH PO
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
== END 2019-01-09 09:26 | disposition home or self-care (01) ==
LOC: ED 06:25
DX: R10.9 Unspecified abdominal pain (principal); Z88.5 Allergy status to narcotic agent; Z91.040 Latex allergy status
CPT/HCPCS: 80053; 81001; 83690; 85025; 96374; 96375; 99284-25; J1885; J2405

== ENCOUNTER 2019-04-17 12:34 | Emergency (ER) | payer OTHER ==
[~2019-04-17] VITALS: Ht 165.1 cm; Wt 107.0 kg
[2019-04-17] MEDS ORDERED: FLOMAX0.4 MG PO (17:20)
[2019-04-17] MEDS ORDERED: ONDANSETRON ODT8 MG PO (17:20)
[2019-04-17] MEDS ORDERED: NORCO 7.5-3251 EACH PO (17:20)
== END 2019-04-17 17:45 | disposition home or self-care (01) ==
LOC: ED 12:34
DX: N13.2 Hydronephrosis with renal and ureteral calculous obstruction (principal); Z91.040 Latex allergy status; Z91.048 Other nonmedicinal substance allergy status; Z88.5 Allergy status to narcotic agent
CPT/HCPCS: 74177; 76830; 76856; 80053; 81001; 83690; 85025; 96361; 99284-25; A9270; J1170; J1885; J2405; J7030; Q9967

== ENCOUNTER 2019-04-26 08:24 | Emergency (ER) | payer OTHER ==
[~2019-04-26] VITALS: Ht 165.1 cm; Wt 107.0 kg
[~2019-04-26 08:24] MED LIST changes: +ACETAMINOPHEN500 MG PO; +FLOMAX0.4 MG PO; +IBUPROFEN200 MG PO; +NORCO 7.5-3251 EACH PO; +ONDANSETRON ODT8 MG PO
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
[2019-04-26] MEDS ORDERED: HYDROCODON-ACE1 EA10 PO (08:37)
[2019-04-26] MEDS ORDERED: CIPROFLOXACIN500 MG PO (08:38)
[2019-04-26] MEDS ORDERED: OXYBUTYNIN CHLOR5 MG PO (10:53)
[2019-04-26] MEDS ORDERED: PYRIDIUM200 MG PO (10:53)
== END 2019-04-26 11:00 | disposition home or self-care (01) ==
LOC: ED 08:24
DX: G89.18 Other acute postprocedural pain (principal); N32.89 Other specified disorders of bladder; Z91.040 Latex allergy status; Z88.5 Allergy status to narcotic agent; Z79.899 Other long term (current) drug therapy
CPT/HCPCS: 96372; 99283; J1885